=== PATIENT | female | born 1950 | race Two or more races ===

== ENCOUNTER 2016-11-05 11:39 | Inpatient (IN) | payer MEDICARE, BC ==
[2016-11-05] VITALS (26 sets, daily range): BP systolic 110–150; BP diastolic 71–96; PULSE 64–85; RESP 10–19; Ht 154.9 cm; Wt 56.0 kg
[~2016-11-05] VITALS: Ht 154.9 cm; Wt 56.0 kg
--- NOTE | 2016-11-05 08:35 | PREOPHP ---
DATE OF ADMISSION: 11/05/2016 HISTORY OF PRESENT ILLNESS: The patient is approximately 65 years of age. Originally came to the [facility] for evaluation of neck pain, with pain going to her shoulders and down her arms, with numbness and weakness in her arms. She also states that she was off balance when she was walking. The antonio ent was diagnosed with cervical 5 and cervical 6 severe spondylosis with cord compression and myelop athy. PAST MEDICAL HISTORY: Per chart. SURGICAL HISTORY: Per chart. SOCIAL HISTORY: Denies the use of drugs, alcohol or tobacco. ALLERGIES: None, according to the patient. FAMILY HISTORY: Unremarkable. REVIEW OF SYSTEM: Additional 10-point review of systems conducted. Pertinent positives per HPI, oth erwise negative. PHYSICAL EXAMINATION: GENERAL: Patient is awake, alert, and oriented, functioning properly. HEENT: Head is atraumatic, normocephalic. Eyes are clear. The trachea is intact. Pupils are equa l and reactive. No cyanosis. Mouth lesions, no bleeding. NECK: Supple. No thyromegaly, no JVD, no accessory muscle usage. PULMONARY: No dyspnea, no tachypnea. CARDIOVASCULAR: No JVD. No pedal edema. NEUROLOGIC EXAM: GCS of 15. Cranial nerves 1 through XII are intact. Upper extremity examination, overall strength is about 4/5 in both upper extremities. Sensation is intact. Lower extremity exa mination, she has equal strength in both lower extremities and sensation is intact. MRI data done 09/24/2016 showed severe spondylosis C5-C6, with evidence of cord compression and sign al changes within the spinal cord. Recommendation at this point is for patient to undergo immediate surgical intervention with cervical partial vertebrectomy C5-C6 with diskectomy, with interbody fus ion and anterior plating. The procedure was described to the patient in great detail. Complication s were explained, including permanent nerve damage, infection, bleeding and complications of anesthe miguel including heart attack, stroke, even . The patient has agreed. Preoperative was performed . The patient has been cleared for surgical intervention and will be admitted to the hospital there after for further care and management. The patient was seen and discussed with Dr. Beal. Dictated By: IZA [place] for LORENA LIMA/LALA Conf#: [id number] [facility]#: [id number]
[~2016-11-05 11:39] MED LIST: ALEN70TA30 PO; ATOR20TA17 PO; BISA5TAB6 PO; DIPH25CA6 PO; GABA400C14 PO; HYDR25TA6 PO; MEMA5TAB PO; SERT-165 PO; STOMACH MED PO; [UNRECOGNIZED DRUG - CODE] PO
[2016-11-05] MEDS ORDERED: PANT40TA4 PO (12:56)
[2016-11-05] MEDS ORDERED: PIOG15TA21 PO ×2 (12:58→13:18)
[2016-11-05] MEDS ORDERED: METF500T4 PO (13:18)
[2016-11-05] MEDS ORDERED: ASPI-664 PO (13:18)
[2016-11-05] MEDS ORDERED: MELO7.5O PO (13:18)
[2016-11-05] MEDS ORDERED: IBAN150T7 PO (13:18)
[2016-11-05] MEDS ORDERED: METF-405 PO (13:18)
[2016-11-05] MEDS ORDERED: ROPI0.25 PO (13:18)
[2016-11-05] MEDS ORDERED: METO10TA96 PO (13:28)
[2016-11-05] MEDS ORDERED: LOSA50TA6 PO (13:28)
[2016-11-05] MEDS ORDERED: ALBU18HF INHALATION (13:28)
[2016-11-05] MEDS ORDERED: GELATIN SIZE 100 SPONGE ONE (13:42)
[2016-11-05] MEDS ORDERED: LIDOCAINE 0.5%/EPI (MDV) 50 ML INJ ONE (13:42)
[2016-11-05] MEDS ORDERED: POLYMYXIN/BACITRACIN 1L IRRIG ONE (13:43)
[2016-11-05] MEDS ORDERED: THROMBIN 5000 UNIT VIAL ONE (13:43)
[2016-11-05] MEDS ORDERED: PROPOFOL 20 ML ONE (14:23)
[2016-11-05] MEDS ORDERED: SUCCINYLCHOLINE CHLORIDE 100 MG/5 ML SYG IV ONE (14:23)
[2016-11-05] MEDS ORDERED: MEPERIDINE 100 MG INJ ONE (14:24)
[2016-11-05] MEDS ORDERED: ROCURONIUM 50 MG INJ ONE ×2 (14:24→15:36)
[2016-11-05] MEDS ORDERED: NEOSTIGMINE 3 MG/3 ML SYRINGE ONE ×2 (14:24→16:39)
[2016-11-05] MEDS ORDERED: GLYCOPYRROLATE 0.4 MG INJ ONE ×2 (14:24→16:19)
[2016-11-05] MEDS ORDERED: LIDOCAINE 2% (SDV) 5 ML INJ ONE (14:24)
[2016-11-05] MEDS ORDERED: DEXTROSE 5%-LR 1,000 ML IV ONE (15:00)
[2016-11-05] MEDS ORDERED: ONDANSETRON 4 MG INJ IV PRN ×2 (15:00→17:30)
[2016-11-05] MEDS ORDERED: ONDANSETRON 4 MG INJ ONE (15:07)
[2016-11-05] MEDS ORDERED: CEFAZOLIN 1 GM INJ ONE (15:07)
[2016-11-05] MEDS ORDERED: METOCLOPRAMIDE 10 MG INJ ONE (15:07)
[2016-11-05] MEDS ORDERED: EPHEDrine SULFATE 50 MG/5 ML SYG ONE (16:15)
[2016-11-05] MEDS ORDERED: NALOXONE (0.4 MG/ML) INJ ONE (16:55)
[2016-11-05] MEDS ORDERED: DIPHENHYDRAMINE 50 MG INJ IV PRN (17:30)
[2016-11-05] MEDS ORDERED: hydrALAzine 20 MG INJ IV PRN (17:30)
[2016-11-05] MEDS ORDERED: LABETALOL HCL 20MG INJ IV PRN (17:30)
[2016-11-05] MEDS ORDERED: MIDAZOLAM 1 MG/ML 2 ML INJ IV PRN (17:30)
[2016-11-05] MEDS ORDERED: FENTAnyl 50 MCG/ML VIAL IV PRN ×2 (17:30)
[2016-11-05] MEDS ORDERED: MEPERIDINE 25 MG INJ IV PRN (17:30)
[2016-11-05] MEDS ORDERED: HYDROmorphONE (0.2 MG/ML) 10ML SYG IV PRN ×2 (17:30)
[2016-11-05] MEDS ORDERED: EPHEDrine SULFATE 50 MG/5 ML SYG IV PRN (17:30)
[2016-11-05] MEDS ORDERED: morphine (1 MG/ML) 10ML SYRINGE IV PRN ×2 (17:30)
[2016-11-05] MEDS ORDERED: METOCLOPRAMIDE 10 MG INJ IV PRN (17:30)
[2016-11-05] MEDS ORDERED: Discontinue Glyburide, Glipizide, and/or Glimepiride prior to starting Insulin XX ONE (18:30)
[2016-11-05] MEDS ORDERED: HYPOGLYCEMIA PROTOCOL when Glucose is <70 mg/dL or symptomatic <90 mg/dL. XX ONE (18:30)
[2016-11-05] MEDS ORDERED: GLUCAGON 1 MG INJ IM PRN (18:30)
[2016-11-05] MEDS ORDERED: GLUCOSE GEL 15 GRAM TUBE PO PRN ×2 (18:30)
[2016-11-05] MEDS ORDERED: DEXTROSE 50% 50 ML SYRINGE IV PRN ×2 (18:30)
[2016-11-05] MEDS ORDERED: GLUCOSE GEL 15 GRAM TUBE BUCCAL PRN (18:30)
[2016-11-05] MEDS: INSULIN ASPART [NOVOLOG] 3 ML PEN SC SCH (18:30)
[2016-11-05] MEDS: DEXAMETHASONE 4 MG/ML 1 ML INJ IV SCH (18:43)
[2016-11-05] MEDS: HYDROCHLOROTHIAZIDE 25 MG TAB PO SCH (21:00)
[2016-11-05] MEDS: ROPINIROLE 0.25 MG TAB PO SCH (21:00)
[2016-11-05] MEDS: MEMANTINE 5 MG TAB PO SCH (21:00)
[2016-11-05] MEDS: PANTOPRAZOLE (EC) 40 MG TAB PO SCH (21:00)
--- NOTE | 2016-11-05 21:42 | RADRPT ---
PROCEDURE: Fluoroscopy services. CLINICAL INDICATION: Cervical spine pain TECHNIQUE: Fluoroscopy services during cervical spinal fusion. COMPARISON: None FINDINGS: Fluoroscopy services during cervical spinal fusion. 7 intraoperative spot films were obtained at int ermediate stages during this procedure demonstrate localization, instrumentation and placement of an terior plate and screw fixation over the cervical spine. 7.8 seconds of fluoroscopy time were employed during this procedure. IMPRESSION: Fluoroscopy services during cervical spinal fusion. RPTAT: [facility] Physician Arsi Date Time Electronically viewed and signed by Physician Aris on 11/05/2016 21:41 RS/
[2016-11-05] MEDS: CEFAZOLIN 1 GM/50 ML (PMX) 50 ML IVPB SCH (21:53)
[2016-11-06] VITALS (13 sets, daily range): BP systolic 123–152; BP diastolic 67–91; PULSE 62–81; RESP 10–18
[2016-11-06] MEDS: INSULIN ASPART [NOVOLOG] 3 ML PEN SC SCH ×4 (01:35→18:00)
--- NOTE | 2016-11-06 05:13 | HP ---
DATE OF ADMISSION: 11/05/2016 HISTORY OF PRESENT ILLNESS: The patient is a 65-year-old female with a history of hypertension, anselmo betes, depression and possible memory impairment, was seen by Dr. Beal as an outpatient for chron ic neck pain radiating to her shoulders and upper extremities. The patient also was noted to have n umbness and weakness in the upper extremities and with some gait instability. The patient underwent MRI of the C-spine and was diagnosed with cervical 5 and 6 severe spondylosis and cord compression and myelopathy. The patient was brought into the hospital today and underwent cervical 5 to cervica l 6 partial vertebrectomy and diskectomy, interbody fusion anterior plating. Status post, this antonio ent was postoperatively placed on neck brace. The patient denies any chest pain or abdominal pain, no vomiting, no reported leg pain. No reported recent fever or chills. No reported recent fall. N o reported any acute joint swelling recently. The patient did not have any history of recent nausea , vomiting, or diarrhea, no reported cough or shortness of breath or fever or chills. The patient d id have postoperative pain. REVIEW OF SYSTEMS: As above and rest of review of systems were unremarkable. PAST SURGICAL HISTORY: The patient is appendectomy, x3, carpal tunnel syndrome and catara ct repair. FAMILY HISTORY: Unremarkable. ALLERGIES: NONE. SOCIAL HISTORY: No smoking, no alcohol. MEDICATIONS: List prior to admission revealed: 1. Benadryl. 2. Albuterol. 3. Lipitor. 4. Losartan. 5. Aspirin. 6. Diclofenac. 7. Gabapentin. 8. Meloxicam. 9. Namenda. 10. Ropinirole. 11. Zoloft. 12. Hydrochlorothiazide. 13. Bisacodyl. 14. Metoclopramide. 15. Protonix. 16. Metformin. 17. Actos. 18. Fosamax. PHYSICAL EXAMINATION: GENERAL: The patient is conscious, awake, alert, follows simple commands. VITAL SIGNS: Temperature 97.7, pulse 66, respirations 19, blood pressure 131/86, O2 saturation 100% on 2 liters nasal cannula. HEENT: Atraumatic, normocephalic. Conjunctivae and lids normal. Extraocular movements intact. No se and ears normal externally. Oropharynx examination was deferred due to recent neck surgery. NECK: Limited due to cervical brace. CHEST: Fairly clear. No use of accessory muscles. CARDIOVASCULAR: Regular rate and rhythm. S1, S2 normal. No murmur, gallop, or rub. ABDOMEN: Soft, nondistended, nontender. Bowel sounds present. EXTREMITIES: No leg edema. NEUROLOGIC: The patient is awake, alert, fairly oriented and moves all extremities. LABORATORY DATA: Glucose 96. Preop labs unremarkable. IMPRESSION: 1. Cervical 5 to cervical 6 severe spondylosis with the cervical myelopathy and cord compression, s tatus post cervical 5 to cervical 6 partial vertebrectomy with diskectomy and interbody fusion anter ior plating. 2. Hypertension. 3. Dyslipidemia. 4. Diabetes. 5. Depression and possible memory impairment. PLAN: The patient admitted on medical floor postoperatively and will be started on IV cefazolin as per protocol. Patient will be given IV fluids, Lipitor, sliding scale insulin. The patient also wi ll be continued on hydrochlorothiazide and losartan. The patient will be started on sliding scale i nsulin in addition to Actos. Continue Zoloft for depression and Neurontin for neuropathy, possible neuropathy pain. We will use SCD for DVT prophylaxis. Plan of care discussed with the nursing mery samuels in the recovery room. We will continue to follow and will do followup labs in the morning. [facility] recommendations will depend on the patient's hospital course. Dictated By: KARLENE BUI/LALA Conf#: [id number] DID#: [id number]
[2016-11-06 05:19] LABS: ADD SCAN DIFF NO
[2016-11-06] MEDS: DEXAMETHASONE 4 MG/ML 1 ML INJ IV SCH ×4 (05:28→13:45)
[2016-11-06] MEDS: CEFAZOLIN 1 GM/50 ML (PMX) 50 ML IVPB SCH ×3 (05:29→21:50)
[2016-11-06 05:35] LABS: ABNORMAL IP MESSAGE 1; BASOPHILS % 0.2 % (0.0-2.0); HEMATOCRIT 38.1 % (37.0-47.0); HEMOGLOBIN 12.2 g/dl (12.0-16.0); LYMPHOCYTES # 0.5 10^3/ul (0.8-2.9); LYMPHOCYTES % 8.5 % (15.0-51.0); MEAN CORPUSCULAR VOLUME 90.7 fl (82.0-101.0); MEAN PLATELET VOLUME 12.4 fl (7.4-10.4); MONOCYTE # 0.1 10^3/ul (0.3-0.9); MONOCYTES % 1.8 % (0.0-11.0); NEUTROPHIL # 5.4 10^3/ul (1.6-7.5); NEUTROPHILS % 89.2 % (39.0-77.0); PLATELET COUNT 153 10^3/UL (140-415); RED CELL DISTRIBUTION WIDTH 13.1 % (11.5-14.5)
[2016-11-06 05:41] LABS: ALBUMIN 3.5 g/dl (3.3-4.9)
[2016-11-06 05:43] LABS: ALBUMIN/GLOBULIN RATIO 1.29; BILIRUBIN,INDIRECT 0.3 mg/dl (0-1.1); BILIRUBIN,TOTAL 0.3 mg/dl (0.2-1.3); CREATININE 0.53 mg/dl (0.44-1.00); TOTAL PROTEIN 6.2 g/dl (6.1-8.1)
[2016-11-06 05:44] LABS: CALCIUM 9.5 mg/dl (8.4-10.2)
[2016-11-06] MEDS: morphine 2 MG INJ IV PRN (08:10)
[2016-11-06] MEDS: PIOGLITAZONE 15 MG TAB PO SCH (08:17)
[2016-11-06] MEDS: ATORVASTATIN 20 MG TAB PO SCH (08:18)
[2016-11-06] MEDS: LOSARTAN 50 MG TAB PO SCH (08:18)
[2016-11-06] MEDS: SERTRALINE 100 MG TAB PO SCH (08:18)
[2016-11-06] MEDS: HYDROCHLOROTHIAZIDE 25 MG TAB PO SCH ×2 (08:18→21:15)
[2016-11-06] MEDS: PANTOPRAZOLE (EC) 40 MG TAB PO SCH ×2 (08:19→21:15)
[2016-11-06] MEDS: GABAPENTIN 400 MG CAP PO SCH (08:19)
[2016-11-06] MEDS: metFORMIN 500 MG TAB PO SCH ×2 (08:21→17:40)
--- NOTE | 2016-11-06 10:19 | CONS ---
Date/Time of Note Date/Time of Note DATE: 11/06/16 TIME: 10:18 Assessment/Plan Assessment/Plan Additional Assessment/Plan seen/examined in icu awake/alert/follows/moves all/sensation intact c5-6 partial vertebrectomy with fusion mri cervical spine may leave icu Consultation Date/Type/Reason Admit Date/Time Nov 05, 2016 at 11:39 Initial Consult Date Exam/Review of Systems Vital Signs Vitals Vital Signs Date Time Temp Pulse Resp B/P Pulse Ox O2 Delivery O2 Flow Rate FiO2 11/06/16 09:00 98.0 66 16 125/71 98 Nasal Cannula 11/06/16 06:32 1.0 Intake and Output 11/05/16 11/05/16 11/06/16 15:00 23:00 07:00 Intake Total 1800 ml 350 ml 575 ml Output Total 1510 ml 420 ml Balance 1800 ml -1160 ml 155 ml Results Result Diagram: 11/06/16 0430 11/06/16 0430 Results 24 hrs Laboratory Tests Test 11/05/16 12:50 11/05/16 17:17 11/05/16 23:57 11/06/16 04:30 Bedside Glucose 99 96 150 White Blood Count 6.0 Red Blood Count 4.20 Hemoglobin 12.2 Hematocrit 38.1 Mean Corpuscular Volume 90.7 Mean Corpuscular Hemoglobin 29.0 Mean Corpuscular Hemoglobin Concent 32.0 Red Cell Distribution Width 13.1 Platelet Count 153 Mean Platelet Volume 12.4 H Neutrophils % 89.2 H Lymphocytes % 8.5 L Monocytes % 1.8 Eosinophils % 0.0 Basophils % 0.2 Nucleated Red Blood Cells % 0.0 Neutrophils # 5.4 Lymphocytes # 0.5 L Monocytes # 0.1 L Eosinophils # 0.0 Basophils # 0.0 Nucleated Red Blood Cells # 0.0 Sodium Level 140 Potassium Level 4.0 Chloride Level 102 Carbon Dioxide Level 30 Anion Gap 12 Blood Urea Nitrogen 14 Creatinine 0.53 Glucose Level 165 Calcium Level 9.5 Total Bilirubin 0.3 Direct Bilirubin 0.00 Indirect Bilirubin 0.3 Aspartate Amino Transf (AST/SGOT) 27 Alanine Aminotransferase (ALT/SGPT) 26 Alkaline Phosphatase 53 Total Protein 6.2 Albumin 3.5 Globulin 2.70 Albumin/Globulin Ratio 1.29 Test 11/06/16 05:35 11/06/16 08:13 Bedside Glucose 149 141 Medications Medications Current Medications Cefazolin Sodium (Ancef 1 Gm/50 ml (Pmx)) 50 ml @ 100 mls/hr Q8 IVPB Last administered on 11/06/16 05:29; Admin Dose 100 MLS/HR; Start 11/05/16 at 22:00 ; Stop 11/06/16 at 22:00 Acetaminophen/ Hydrocodone Bitart ([place] (10/325)) 1 tab Q4H PRN PO PAIN; Start 11/05/16 at 15:00 Morphine Sulfate (morphine) 2 mg Q4H PRN IV severe pain Last administered on 08:10; Admin Dose 2 MG; Start 11/05/16 at 15:00 Ondansetron HCl (Zofran Inj) 4 mg Q6H PRN IV NAUSEA AND/OR VOMITING; Start at 15:00 Clonidine (Catapres) 0.1 mg Q6H PRN PO sbp>160; Start 11/05/16 at 15:00 Dexamethasone (Decadron) 4 mg Q6 IV Last administered on 11/06/16 05:28; Admin Dose 4 MG; Start 11/05/16 at 18:00; Stop 11/06/16 at 18:00 Atorvastatin Calcium (Lipitor) 20 mg DAILY PO Last administered on 11/06/16 08 :18; Admin Dose 20 MG; Start 11/06/16 at 09:00 Gabapentin (Neurontin) 400 mg DAILY PO Last administered on 11/06/16 08:19; Admin Dose 400 MG; Start 11/06/16 at 09:00 Hydrochlorothiazide (Hydrochlorothiazide) 25 mg BID PO Last administered on 08:18; Admin Dose 25 MG; Start 11/05/16 at 21:00 Losartan Potassium (Cozaar) 50 mg DAILY PO Last administered on 11/06/16 08:18 ; Admin Dose 50 MG; Start 11/06/16 at 09:00 Memantine (Namenda) 5 mg HS PO ; Start 11/05/16 at 21:00 Pantoprazole (Protonix Tab) 40 mg BID PO Last administered on 11/06/16 08:19; Admin Dose 40 MG; Start 11/05/16 at 21:00 Pioglitazone HCl (Actos) 15 mg DAILY PO Last administered on 11/06/16 08:17; Admin Dose 15 MG; Start 11/06/16 at 09:00 Ropinirole HCl (Requip) 0.25 mg HS PO ; Start 11/05/16 at 21:00 Sertraline HCl (Zoloft) 100 mg DAILY PO Last administered on 11/06/16 08:18; Admin Dose 100 MG; Start 11/06/16 at 09:00 Insulin Aspart (Novolog Insulin Pen) NOVOLOG *MILD* ALGORI... Q6 SC Last administered on 11/06/16 05:50; Admin Dose 1 UNIT; Start 11/05/16 at 18:30 Miscellaneous Information 1 ea NOTE XX ; Start 11/05/16 at 18:30 Glucose (Glutose) 15 gm Q15M PRN PO DECREASED GLUCOSE; Start 11/05/16 at 18:30 Glucose (Glutose) 22.5 gm Q15M PRN PO DECREASED GLUCOSE; Start 11/05/16 at 18: 30 Dextrose (D50w Syringe) 25 ml Q15M PRN IV DECREASED GLUCOSE; Start 11/05/16 at 18:30 Dextrose (D50w Syringe) 50 ml Q15M PRN IV DECREASED GLUCOSE; Start 11/05/16 at 18:30 Glucagon (Glucagen) 1 mg Q15M PRN IM DECREASED GLUCOSE; Start 11/05/16 at 18:30 Glucose (Glutose) 15 gm Q15M PRN BUCCAL DECREASED GLUCOSE; Start 11/05/16 at 18 :30 IZA VALLE PA-C Nov 06, 2016 10:19
[2016-11-06] MEDS ORDERED: ALBUTEROL 0.083% (NEB) 2.5 MG/3 ML AMP HHN PRN (10:30)
--- NOTE | 2016-11-06 14:43 | PN ---
Date/Time of Note Date/Time of Note DATE: 11/06/16 TIME: 14:35 Assessment/Plan VTE Prophylaxis VTE Prophylaxis Intervention: other Lines/Catheters IV Catheter Type (from Nrsg): Peripheral IV Urinary Cath still in place: Yes Assessment/Plan Assessment/Plan 1. Cervical 5 to cervical 6 severe spondylosis with the cervical myelopathy and cord compression, status post cervical 5 to cervical 6 partial vertebrectomy with diskectomy and interbody fusion anterior plating. - per neurosurgery - IV cefazolin as per protocol. - MRI neck- fu results - on 1800 CLA , 2 GM Na diet 2. Hypertension. - continued on hydrochlorothiazide and losartan. 3. Dyslipidemia.- lipitor 4. Diabetes. - sliding scale insulin in addition to Actos. 5. Depression and possible memory impairment. - Continue Zoloft for depression 6. neuropathy - Neurontin for possible neuropathy pain Further recommendations will depend on the patient's hospital course.victoria Koo Subjective 24 Hr Interval Summary Free Text/Dictation nad, had MRI nech today, fu results. dw staff Exam/Review of Systems Vital Signs Vitals Vital Signs Date Time Temp Pulse Resp B/P Pulse Ox O2 Delivery O2 Flow Rate FiO2 11/06/16 11:15 2.0 11/06/16 11:15 69 20 99 Nasal Cannula 11/06/16 11:00 136/78 11/06/16 09:00 98.0 Intake and Output 11/05/16 11/05/16 11/06/16 15:00 23:00 07:00 Intake Total 1800 ml 350 ml 575 ml Output Total 1510 ml 420 ml Balance 1800 ml -1160 ml 155 ml Exam Constitutional: alert Psych: nl mood/affect Eyes: EOMI ENMT: nl external ears & nose Neck: other Respiratory: clear to auscultation Cardiovascular: nl pulses Gastrointestinal: non-tender, soft Extremities: normal pulses Results Result Diagram: 11/06/16 0430 11/06/16 0430 Results 24 hrs Laboratory Tests Test 11/05/16 17:17 11/05/16 23:57 11/06/16 04:30 11/06/16 05:35 Bedside Glucose 96 150 149 White Blood Count 6.0 Red Blood Count 4.20 Hemoglobin 12.2 Hematocrit 38.1 Mean Corpuscular Volume 90.7 Mean Corpuscular Hemoglobin 29.0 Mean Corpuscular Hemoglobin Concent 32.0 Red Cell Distribution Width 13.1 Platelet Count 153 Mean Platelet Volume 12.4 H Neutrophils % 89.2 H Lymphocytes % 8.5 L Monocytes % 1.8 Eosinophils % 0.0 Basophils % 0.2 Nucleated Red Blood Cells % 0.0 Neutrophils # 5.4 Lymphocytes # 0.5 L Monocytes # 0.1 L Eosinophils # 0.0 Basophils # 0.0 Nucleated Red Blood Cells # 0.0 Sodium Level 140 Potassium Level 4.0 Chloride Level 102 Carbon Dioxide Level 30 Anion Gap 12 Blood Urea Nitrogen 14 Creatinine 0.53 Glucose Level 165 Calcium Level 9.5 Total Bilirubin 0.3 Direct Bilirubin 0.00 Indirect Bilirubin 0.3 Aspartate Amino Transf (AST/SGOT) 27 Alanine Aminotransferase (ALT/SGPT) 26 Alkaline Phosphatase 53 Total Protein 6.2 Albumin 3.5 Globulin 2.70 Albumin/Globulin Ratio 1.29 Test 11/06/16 08:13 11/06/16 12:57 Bedside Glucose 141 110 Medications Medications Current Medications Cefazolin Sodium (Ancef 1 Gm/50 ml (Pmx)) 50 ml @ 100 mls/hr Q8 IVPB Last administered on 11/06/16 13:45; Admin Dose 100 MLS/HR; Start 11/05/16 at 22:00 ; Stop 11/06/16 at 22:00 Acetaminophen/ Hydrocodone Bitart ([place] (10/325)) 1 tab Q4H PRN PO PAIN; Start 11/05/16 at 15:00 Morphine Sulfate (morphine) 2 mg Q4H PRN IV severe pain Last administered on 08:10; Admin Dose 2 MG; Start 11/05/16 at 15:00 Ondansetron HCl (Zofran Inj) 4 mg Q6H PRN IV NAUSEA AND/OR VOMITING; Start at 15:00 Clonidine (Catapres) 0.1 mg Q6H PRN PO sbp>160; Start 11/05/16 at 15:00 Dexamethasone (Decadron) 4 mg Q6 IV Last administered on 11/06/16 13:45; Admin Dose 4 MG; Start 11/05/16 at 18:00; Stop 11/06/16 at 18:00 Atorvastatin Calcium (Lipitor) 20 mg DAILY PO Last administered on 11/06/16 08 :18; Admin Dose 20 MG; Start 11/06/16 at 09:00 Gabapentin (Neurontin) 400 mg DAILY PO Last administered on 11/06/16 08:19; Admin Dose 400 MG; Start 11/06/16 at 09:00 Hydrochlorothiazide (Hydrochlorothiazide) 25 mg BID PO Last administered on 08:18; Admin Dose 25 MG; Start 11/05/16 at 21:00 Losartan Potassium (Cozaar) 50 mg DAILY PO Last administered on 11/06/16 08:18 ; Admin Dose 50 MG; Start 11/06/16 at 09:00 Memantine (Namenda) 5 mg HS PO ; Start 11/05/16 at 21:00 Pantoprazole (Protonix Tab) 40 mg BID PO Last administered on 11/06/16 08:19; Admin Dose 40 MG; Start 11/05/16 at 21:00 Pioglitazone HCl (Actos) 15 mg DAILY PO Last administered on 11/06/16 08:17; Admin Dose 15 MG; Start 11/06/16 at 09:00 Ropinirole HCl (Requip) 0.25 mg HS PO ; Start 11/05/16 at 21:00 Sertraline HCl (Zoloft) 100 mg DAILY PO Last administered on 11/06/16 08:18; Admin Dose 100 MG; Start 11/06/16 at 09:00 Insulin Aspart (Novolog Insulin Pen) NOVOLOG *MILD* ALGORI... Q6 SC Last administered on 11/06/16 05:50; Admin Dose 1 UNIT; Start 11/05/16 at 18:30 Miscellaneous Information 1 ea NOTE XX ; Start 11/05/16 at 18:30 Glucose (Glutose) 15 gm Q15M PRN PO DECREASED GLUCOSE; Start 11/05/16 at 18:30 Glucose (Glutose) 22.5 gm Q15M PRN PO DECREASED GLUCOSE; Start 11/05/16 at 18: 30 Dextrose (D50w Syringe) 25 ml Q15M PRN IV DECREASED GLUCOSE; Start 11/05/16 at 18:30 Dextrose (D50w Syringe) 50 ml Q15M PRN IV DECREASED GLUCOSE; Start 11/05/16 at 18:30 Glucagon (Glucagen) 1 mg Q15M PRN IM DECREASED GLUCOSE; Start 11/05/16 at 18:30 Glucose (Glutose) 15 gm Q15M PRN BUCCAL DECREASED GLUCOSE; Start 11/05/16 at 18 :30 NESTOR BARKSDALE Nov 06, 2016 14:43
--- NOTE | 2016-11-06 15:23 | RADRPT ---
PROCEDURE: MRI Cervical Spine without contrast. CLINICAL INDICATION: 65-year-old female with postoperative changes from cervical decompression. TECHNIQUE: An MRI of the cervical spine was performed without contrast utilizing multiple sequence s in the sagittal and axial planes. Images reviewed on a high-resolution PACS system.. COMPARISON: Intraoperative examination 11/05/2016 FINDINGS: There has been interval anterior cervical discectomy and fusion at C5-6 with paired anterior vertebr al body screws and associated anterior fusion plate. There is a disc-spacer place. The hardware ap pears intact. The remaining vertebral body heights are maintained. The marrow signal is within nor mal limits. 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 There is diffuse desiccation of the remaining in tervertebral discs with moderate loss of disc-space height at C4-5 and C6-7. There are mild degener ative changes of the atlanto-odontoid articulation. The craniocervical and cervical medullary junct ions are unremarkable. The cervical cord is normal in caliber and signal intensity. The paravertebra l soft tissues are unremarkable. Occiput-C2: The anatomic relationships are normal without canal stenosis. C2-3: There is a 1-2 mm posterior disc/osteophyte complex. The thecal sac is patent, measuring 12 m m midline AP diameter. There is mild bilateral facet and uncovertebral joint spondylosis. There is mild bilateral neural foraminal narrowing. C3-4: There is a broad-based 2-3 mm posterior disc/osteophyte complex. The thecal sac measures 8.3 mm in midline AP diameter. There is effacement of the ventral CSF column. There is a thin rim of C SF dorsal to the cervical spinal cord. There is mild to moderate bilateral facet joint hypertrophy and mild to moderate bilateral uncovertebral joint spondylosis. There is severe bilateral neural fo raminal narrowing. C4-5: There is a Saddle-shaped 2-3 mm posterior disc/osteophyte complex. The thecal sac measures 6. 8 mm in midline AP diameter. There is mild bilateral facet joint hypertrophy and moderate bilateral uncovertebral joint spondylosis. There is severe bilateral neural foraminal narrowing. C5-6: No residual disc material is seen. The thecal sac measures 8.2 mm midline AP diameter. There is mild to moderate bilateral neural foraminal narrowing. C6-7: There is a broad-based 2-3 mm posterior disc/osteophyte complex. The thecal sac measures 6.9 mm in midline AP diameter. There is moderate bilateral facet joint hypertrophy and uncovertebral jerrell int spondylosis. There is severe bilateral neural foraminal narrowing. C7-T1: There is a Saddle-shaped to mm posterior disc/osteophyte complex. The thecal sac measures 7. 4 mm in midline AP diameter. There is mild bilateral facet joint hypertrophy and moderate left unco vertebral joint spondylosis. There is severe left and moderate right neural foraminal narrowing. IMPRESSION: 1. Postoperative changes from anterior cervical discectomy and fusion at C5-6 with intact surgical hardware. 2. The cervical cord is normal in signal and caliber. No evidence of myelopathic changes at this ti me. 3. 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 4. Multilevel facet and uncovertebral joint spondylosis with severe narrowing of the bilateral C3-4 , bilateral C4-5, bilateral C6-7 and left C7-T1 foramina. RPTAT: HGAS .Darin Martinez MD, Date Time Electronically viewed and signed by .Darin Martinez MD, on 11/06/2016 15:23 .S/
[2016-11-06] MEDS: ROPINIROLE 0.25 MG TAB PO SCH (21:14)
[2016-11-06] MEDS: MEMANTINE 5 MG TAB PO SCH (21:15)
[2016-11-06] MEDS: HYDROCODONE/APAP (10/325) TAB PO PRN (21:20)
[2016-11-07] MEDS: ACCUCHECK AT 2AM (Patients on SS coverage) XX SCH (02:00)
[2016-11-07] MEDS: morphine 2 MG INJ IV PRN ×3 (03:13→21:34)
[2016-11-07 05:57] LABS: ADD SCAN DIFF NO
[2016-11-07 06:11] LABS: CALCIUM 9.7 mg/dl (8.4-10.2); CREATININE 0.58 mg/dl (0.44-1.00); POTASSIUM 3.2 mmol/L (3.5-5.1)
[2016-11-07 06:18] LABS: BASOPHILS % 0.2 % (0.0-2.0); EOSINOPHILS # 0.1 10^3/ul (0.0-0.5); EOSINOPHILS % 1.1 % (0.0-7.0); HEMATOCRIT 34.6 % (37.0-47.0); HEMOGLOBIN 11.6 g/dl (12.0-16.0); LYMPHOCYTES # 1.2 10^3/ul (0.8-2.9); LYMPHOCYTES % 19.4 % (15.0-51.0); MEAN CORPUSCULAR HEMOGLOBIN 30.2 pg (29.0-33.0); MEAN CORPUSCULAR HGB CONC 33.5 g/dl (32.0-37.0); MEAN CORPUSCULAR VOLUME 90.1 fl (82.0-101.0); MEAN PLATELET VOLUME 12.8 fl (7.4-10.4); MONOCYTE # 0.6 10^3/ul (0.3-0.9); MONOCYTES % 9.7 % (0.0-11.0); NEUTROPHIL # 4.3 10^3/ul (1.6-7.5); NEUTROPHILS % 69.3 % (39.0-77.0); PLATELET COUNT 155 10^3/UL (140-415); RED BLOOD COUNT 3.84 10^6/ul (4.20-5.40); RED CELL DISTRIBUTION WIDTH 13.2 % (11.5-14.5); WHITE BLOOD COUNT 6.2 10^3/ul (4.8-10.8)
[2016-11-07] MEDS: Insulin NOVOLOG SS MILD Algorithm (SS with meals and bedtime) SC SCH ×4 (07:20→21:00)
[2016-11-07 08:34] VITALS: BP 142/72; RESP 18
[2016-11-07] MEDS: GABAPENTIN 400 MG CAP PO SCH (09:17)
[2016-11-07] MEDS: ATORVASTATIN 20 MG TAB PO SCH (09:17)
[2016-11-07] MEDS: PANTOPRAZOLE (EC) 40 MG TAB PO SCH ×2 (09:17→21:33)
[2016-11-07] MEDS: HYDROCODONE/APAP (10/325) TAB PO PRN (09:17)
[2016-11-07] MEDS: HYDROCHLOROTHIAZIDE 25 MG TAB PO SCH ×2 (09:18→21:34)
[2016-11-07] MEDS: metFORMIN 500 MG TAB PO SCH ×2 (09:18→18:37)
[2016-11-07] MEDS: PIOGLITAZONE 15 MG TAB PO SCH (09:18)
[2016-11-07] MEDS: LOSARTAN 50 MG TAB PO SCH (09:18)
[2016-11-07] MEDS: SERTRALINE 100 MG TAB PO SCH (09:18)
--- NOTE | 2016-11-07 11:01 | CONS ---
Date/Time of Note Date/Time of Note DATE: 11/07/16 TIME: 10:59 Assessment/Plan Assessment/Plan Additional Assessment/Plan seen/examined awake/alert/follows worked with pt around the floor pain is stable mri reviewed looks good replace k start ivf Consultation Date/Type/Reason Admit Date/Time Nov 05, 2016 at 11:39 Exam/Review of Systems Vital Signs Vitals Vital Signs Date Time Temp Pulse Resp B/P Pulse Ox O2 Delivery O2 Flow Rate FiO2 11/07/16 08:34 98.1 66 18 142/72 96 11/06/16 11:15 2.0 11/06/16 11:15 Nasal Cannula Intake and Output 11/06/16 11/06/16 11/07/16 15:00 23:00 07:00 Intake Total 50 ml 1100 ml 350 ml Output Total 650 ml 750 ml Balance 50 ml 450 ml -400 ml Results Result Diagram: 11/07/16 0430 11/07/16 0420 Results 24 hrs Laboratory Tests Test 11/06/16 12:57 11/06/16 17:02 11/06/16 21:13 11/07/16 04:20 Bedside Glucose 110 121 134 Sodium Level 136 Potassium Level 3.2 L Chloride Level 103 Carbon Dioxide Level 30 Anion Gap 6 L Blood Urea Nitrogen 14 Creatinine 0.58 Glucose Level 104 # Calcium Level 9.7 Test 11/07/16 04:30 11/07/16 08:11 11/07/16 09:30 White Blood Count 6.2 Red Blood Count 3.84 L Hemoglobin 11.6 L Hematocrit 34.6 L Mean Corpuscular Volume 90.1 Mean Corpuscular Hemoglobin 30.2 Mean Corpuscular Hemoglobin Concent 33.5 Red Cell Distribution Width 13.2 Platelet Count 155 Mean Platelet Volume 12.8 H Neutrophils % 69.3 Lymphocytes % 19.4 Monocytes % 9.7 Eosinophils % 1.1 Basophils % 0.2 Nucleated Red Blood Cells % 0.0 Neutrophils # 4.3 Lymphocytes # 1.2 Monocytes # 0.6 Eosinophils # 0.1 Basophils # 0.0 Nucleated Red Blood Cells # 0.0 Bedside Glucose 88 114 Medications Medications Current Medications Acetaminophen/ Hydrocodone Bitart ([place] (10/325)) 1 tab Q4H PRN PO PAIN Last administered on 11/07/16t 09:17; Admin Dose 1 TAB; Start 11/05/16 at 15:00 Ondansetron HCl (Zofran Inj) 4 mg Q6H PRN IV NAUSEA AND/OR VOMITING; Start at 15:00 Clonidine (Catapres) 0.1 mg Q6H PRN PO sbp>160; Start 11/05/16 at 15:00 Atorvastatin Calcium (Lipitor) 20 mg DAILY PO Last administered on 11/07/16 09 :17; Admin Dose 20 MG; Start 11/06/16 at 09:00 Gabapentin (Neurontin) 400 mg DAILY PO Last administered on 11/07/16 09:17; Admin Dose 400 MG; Start 11/06/16 at 09:00 Hydrochlorothiazide (Hydrochlorothiazide) 25 mg BID PO Last administered on 09:18; Admin Dose 25 MG; Start 11/05/16 at 21:00 Losartan Potassium (Cozaar) 50 mg DAILY PO Last administered on 11/07/16 09:18 ; Admin Dose 50 MG; Start 11/06/16 at 09:00 Memantine (Namenda) 5 mg HS PO Last administered on 11/06/16 21:15; Admin Dose 5 MG; Start 11/05/16 at 21:00 Pantoprazole (Protonix Tab) 40 mg BID PO Last administered on 11/07/16 09:17; Admin Dose 40 MG; Start 11/05/16 at 21:00 Pioglitazone HCl (Actos) 15 mg DAILY PO Last administered on 11/07/16 09:18; Admin Dose 15 MG; Start 11/06/16 at 09:00 Ropinirole HCl (Requip) 0.25 mg HS PO Last administered on 11/06/16 21:14; Admin Dose 0.25 MG; Start 11/05/16 at 21:00 Sertraline HCl (Zoloft) 100 mg DAILY PO Last administered on 11/07/16 09:18; Admin Dose 100 MG; Start 11/06/16 at 09:00 Miscellaneous Information 1 ea NOTE XX ; Start 11/05/16 at 18:30 Glucose (Glutose) 15 gm Q15M PRN PO DECREASED GLUCOSE; Start 11/05/16 at 18:30 Glucose (Glutose) 22.5 gm Q15M PRN PO DECREASED GLUCOSE; Start 11/05/16 at 18: 30 Dextrose (D50w Syringe) 25 ml Q15M PRN IV DECREASED GLUCOSE; Start 11/05/16 at 18:30 Dextrose (D50w Syringe) 50 ml Q15M PRN IV DECREASED GLUCOSE; Start 11/05/16 at 18:30 Glucagon (Glucagen) 1 mg Q15M PRN IM DECREASED GLUCOSE; Start 11/05/16 at 18:30 Glucose (Glutose) 15 gm Q15M PRN BUCCAL DECREASED GLUCOSE; Start 11/05/16 at 18 :30 Diagnostic Test (Pha) (Accu-Chek) 1 ea 02 XX ; Start 11/07/16 at 02:00 Morphine Sulfate 1 mg 1 mg Q4H PRN IV severe pain; Start 11/07/16 at 11:00 Potassium Chloride 30 meq/ Sodium Chloride 165 ml @ 55 mls/hr ONCE ONCE IVPB ; Start 11/07/16 at 12:00; Stop 11/07/16 at 14:59 Dextrose/Sodium Chloride (D5-NS) 1,000 ml @ 100 mls/hr Q10H IV ; Start at 11:00; Status IZA SHIPLEY PA-C Nov 07, 2016 11:01
[2016-11-07] MEDS ORDERED: POTASSIUM CHLORIDE 30 MEQ in SOD CHLORIDE 0.9% 150 ML IVPB ONE (12:00)
[2016-11-07] MEDS: DEXTROSE 5%-0.9% NACL 1,000 ML IV SCH (12:39)
[2016-11-07 20:57] VITALS: BP 127/67; RESP 18
[2016-11-07] MEDS: ROPINIROLE 0.25 MG TAB PO SCH (21:33)
[2016-11-07] MEDS: MEMANTINE 5 MG TAB PO SCH (21:34)
[2016-11-08] MEDS: ACCUCHECK AT 2AM (Patients on SS coverage) XX SCH (02:00)
[2016-11-08] MEDS: DEXTROSE 5%-0.9% NACL 1,000 ML IV SCH ×3 (03:00→23:00)
[2016-11-08] MEDS: Insulin NOVOLOG SS MILD Algorithm (SS with meals and bedtime) SC SCH ×4 (07:20→20:59)
[2016-11-08 09:08] VITALS: BP 165/90; RESP 20
[2016-11-08] MEDS: GABAPENTIN 400 MG CAP PO SCH (09:22)
[2016-11-08] MEDS: metFORMIN 500 MG TAB PO SCH ×2 (09:22→17:41)
[2016-11-08] MEDS: PIOGLITAZONE 15 MG TAB PO SCH (09:22)
[2016-11-08] MEDS: HYDROCODONE/APAP (10/325) TAB PO PRN ×2 (09:22→17:41)
[2016-11-08] MEDS: ATORVASTATIN 20 MG TAB PO SCH (09:23)
[2016-11-08] MEDS: PANTOPRAZOLE (EC) 40 MG TAB PO SCH ×2 (09:23→20:56)
[2016-11-08] MEDS: LOSARTAN 50 MG TAB PO SCH (09:23)
[2016-11-08] MEDS: SERTRALINE 100 MG TAB PO SCH (09:23)
[2016-11-08] MEDS: HYDROCHLOROTHIAZIDE 25 MG TAB PO SCH ×2 (09:23→20:56)
--- NOTE | 2016-11-08 13:12 | CONS ---
Date/Time of Note Date/Time of Note DATE: 11/08/16 TIME: 13:10 Assessment/Plan Assessment/Plan Additional Assessment/Plan seen/examined awake/alert/follows/moves all/sensation intact cervical decompression with fusion pt looking better today may go home sixto fu in office 1 week. Consultation Date/Type/Reason Admit Date/Time Nov 05, 2016 at 11:39 Exam/Review of Systems Vital Signs Vitals Vital Signs Date Time Temp Pulse Resp B/P Pulse Ox O2 Delivery O2 Flow Rate FiO2 11/08/16 09:08 97.0 77 20 165/90 97 11/08/16 08:51 Nasal Cannula 2.0 11/07/16 23:30 21 Intake and Output 11/07/16 11/07/16 11/08/16 15:00 23:00 07:00 Intake Total 1330 ml 920 ml Output Total 1750 ml 550 ml Balance -420 ml 370 ml Results Result Diagram: 11/07/16 0430 11/07/16 0420 Results 24 hrs Laboratory Tests Test 11/07/16 17:24 11/07/16 21:58 11/08/16 08:06 11/08/16 12:34 Bedside Glucose 89 108 112 103 Medications Medications Current Medications Acetaminophen/ Hydrocodone Bitart ([place] (10/325)) 1 tab Q4H PRN PO PAIN Last administered on 11/08/16 09:22; Admin Dose 1 TAB; Start 11/05/16 at 15:00 Ondansetron HCl (Zofran Inj) 4 mg Q6H PRN IV NAUSEA AND/OR VOMITING; Start at 15:00 Clonidine (Catapres) 0.1 mg Q6H PRN PO sbp>160; Start 11/05/16 at 15:00 Atorvastatin Calcium (Lipitor) 20 mg DAILY PO Last administered on 11/08/16 09 :23; Admin Dose 20 MG; Start 11/06/16 at 09:00 Gabapentin (Neurontin) 400 mg DAILY PO Last administered on 11/08/16 09:22; Admin Dose 400 MG; Start 11/06/16 at 09:00 Hydrochlorothiazide (Hydrochlorothiazide) 25 mg BID PO Last administered on 09:23; Admin Dose 25 MG; Start 11/05/16 at 21:00 Losartan Potassium (Cozaar) 50 mg DAILY PO Last administered on 11/08/16 09:23 ; Admin Dose 50 MG; Start 11/06/16 at 09:00 Memantine (Namenda) 5 mg HS PO Last administered on 11/07/16 21:34; Admin Dose 5 MG; Start 11/05/16 at 21:00 Pantoprazole (Protonix Tab) 40 mg BID PO Last administered on 11/08/16 09:23; Admin Dose 40 MG; Start 11/05/16 at 21:00 Pioglitazone HCl (Actos) 15 mg DAILY PO Last administered on 11/08/16 09:22; Admin Dose 15 MG; Start 11/06/16 at 09:00 Ropinirole HCl (Requip) 0.25 mg HS PO Last administered on 11/07/16 21:33; Admin Dose 0.25 MG; Start 11/05/16 at 21:00 Sertraline HCl (Zoloft) 100 mg DAILY PO Last administered on 11/08/16 09:23; Admin Dose 100 MG; Start 11/06/16 at 09:00 Miscellaneous Information 1 ea NOTE XX ; Start 11/05/16 at 18:30 Glucose (Glutose) 15 gm Q15M PRN PO DECREASED GLUCOSE; Start 11/05/16 at 18:30 Glucose (Glutose) 22.5 gm Q15M PRN PO DECREASED GLUCOSE; Start 11/05/16 at 18: 30 Dextrose (D50w Syringe) 25 ml Q15M PRN IV DECREASED GLUCOSE; Start 11/05/16 at 18:30 Dextrose (D50w Syringe) 50 ml Q15M PRN IV DECREASED GLUCOSE; Start 11/05/16 at 18:30 Glucagon (Glucagen) 1 mg Q15M PRN IM DECREASED GLUCOSE; Start 11/05/16 at 18:30 Glucose (Glutose) 15 gm Q15M PRN BUCCAL DECREASED GLUCOSE; Start 11/05/16 at 18 :30 Diagnostic Test (Pha) (Accu-Chek) 1 ea 02 XX ; Start 11/07/16 at 02:00 Morphine Sulfate 1 mg 1 mg Q4H PRN IV severe pain Last administered on 21:34; Admin Dose 1 MG; Start 11/07/16 at 11:00 Dextrose/Sodium Chloride (D5-NS) 1,000 ml @ 100 mls/hr Q10H IV Last administered on 11/08/16t 04:55; Admin Dose 100 MLS/HR; Start 11/07/16 at 11:00 IZA VALLE PA-C Nov 08, 2016 13:12
--- NOTE | 2016-11-08 19:17 | PN ---
Date/Time of Note Date/Time of Note DATE: 11/08/16 TIME: 19:14 Assessment/Plan VTE Prophylaxis VTE Prophylaxis Intervention: SCD's Lines/Catheters IV Catheter Type (from Nrsg): Peripheral IV Urinary Cath still in place: No Assessment/Plan Assessment/Plan 1. Cervical 5 to cervical 6 severe spondylosis with the cervical myelopathy and cord compression, status post cervical 5 to cervical 6 partial vertebrectomy with diskectomy and interbody fusion anterior plating. Continue morphine as needed for pelvic pain. Continue physical therapy. 2. Hypertension. Continue Cozaar. 3. Dyslipidemia. Continue statin. 4. Diabetes. Continue Actos and NovoLog per sliding scale. 5. Depression and possible memory impairment. Further recommendations based on clinical course. Plan of care discussed with Dr. Koo. Subjective 24 Hr Interval Summary Free Text/Dictation Patient's complains of dizziness, was able to work with PT, complains of surgical incision pain. Exam/Review of Systems Vital Signs Vitals Vital Signs Date Time Temp Pulse Resp B/P Pulse Ox O2 Delivery O2 Flow Rate FiO2 11/08/16 09:08 97.0 77 20 165/90 97 11/08/16 08:51 Nasal Cannula 2.0 11/07/16 23:30 21 Intake and Output 11/07/16 11/07/16 11/08/16 15:00 23:00 07:00 Intake Total 1330 ml 920 ml Output Total 1750 ml 550 ml Balance -420 ml 370 ml Exam Constitutional: alert, oriented Psych: no complaints Head: atraumatic, normocephalic Eyes: nl conjunctiva ENMT: nl external ears & nose Neck: other (Status post surgery, cervical collar) Respiratory: clear to auscultation, normal air movement Cardiovascular: nl pulses, regular rate and rhythm Gastrointestinal: non-tender, soft Genitourinary - Female: nl adnexae Musculoskeletal: nl extremities to inspection Extremities: normal pulses 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 Results Result Diagram: 11/07/16 0430 11/07/16 0420 Results 24 hrs Laboratory Tests Test 11/07/16 21:58 11/08/16 08:06 11/08/16 12:34 11/08/16 17:29 Bedside Glucose 108 112 103 103 Medications Medications Current Medications Acetaminophen/ Hydrocodone Bitart ([place] (10/325)) 1 tab Q4H PRN PO PAIN Last administered on 11/08/16 17:41; Admin Dose 1 TAB; Start 11/05/16 at 15:00 Ondansetron HCl (Zofran Inj) 4 mg Q6H PRN IV NAUSEA AND/OR VOMITING; Start at 15:00 Clonidine (Catapres) 0.1 mg Q6H PRN PO sbp>160; Start 11/05/16 at 15:00 Atorvastatin Calcium (Lipitor) 20 mg DAILY PO Last administered on 11/08/16 09 :23; Admin Dose 20 MG; Start 11/06/16 at 09:00 Gabapentin (Neurontin) 400 mg DAILY PO Last administered on 11/08/16 09:22; Admin Dose 400 MG; Start 11/06/16 at 09:00 Hydrochlorothiazide (Hydrochlorothiazide) 25 mg BID PO Last administered on 09:23; Admin Dose 25 MG; Start 11/05/16 at 21:00 Losartan Potassium (Cozaar) 50 mg DAILY PO Last administered on 11/08/16 09:23 ; Admin Dose 50 MG; Start 11/06/16 at 09:00 Memantine (Namenda) 5 mg HS PO Last administered on 11/07/16 21:34; Admin Dose 5 MG; Start 11/05/16 at 21:00 Pantoprazole (Protonix Tab) 40 mg BID PO Last administered on 11/08/16 09:23; Admin Dose 40 MG; Start 11/05/16 at 21:00 Pioglitazone HCl (Actos) 15 mg DAILY PO Last administered on 11/08/16 09:22; Admin Dose 15 MG; Start 11/06/16 at 09:00 Ropinirole HCl (Requip) 0.25 mg HS PO Last administered on 11/07/16 21:33; Admin Dose 0.25 MG; Start 11/05/16 at 21:00 Sertraline HCl (Zoloft) 100 mg DAILY PO Last administered on 11/08/16 09:23; Admin Dose 100 MG; Start 11/06/16 at 09:00 Miscellaneous Information 1 ea NOTE XX ; Start 11/05/16 at 18:30 Glucose (Glutose) 15 gm Q15M PRN PO DECREASED GLUCOSE; Start 11/05/16 at 18:30 Glucose (Glutose) 22.5 gm Q15M PRN PO DECREASED GLUCOSE; Start 11/05/16 at 18: 30 Dextrose (D50w Syringe) 25 ml Q15M PRN IV DECREASED GLUCOSE; Start 11/05/16 at 18:30 Dextrose (D50w Syringe) 50 ml Q15M PRN IV DECREASED GLUCOSE; Start 11/05/16 at 18:30 Glucagon (Glucagen) 1 mg Q15M PRN IM DECREASED GLUCOSE; Start 11/05/16 at 18:30 Glucose (Glutose) 15 gm Q15M PRN BUCCAL DECREASED GLUCOSE; Start 11/05/16 at 18 :30 Diagnostic Test (Pha) (Accu-Chek) 1 ea 02 XX ; Start 11/07/16 at 02:00 Morphine Sulfate 1 mg 1 mg Q4H PRN IV severe pain Last administered on 21:34; Admin Dose 1 MG; Start 11/07/16 at 11:00 Dextrose/Sodium Chloride (D5-NS) 1,000 ml @ 100 mls/hr Q10H IV Last administered on 11/08/16 04:55; Admin Dose 100 MLS/HR; Start 11/07/16 at 11:00 ERI CHAIDEZ Nov 08, 2016 19:17
[2016-11-08 20:19] VITALS: BP 147/81; RESP 18
[2016-11-08] MEDS: MEMANTINE 5 MG TAB PO SCH (20:56)
[2016-11-08] MEDS: ROPINIROLE 0.25 MG TAB PO SCH (20:56)
[2016-11-09] MEDS: ACCUCHECK AT 2AM (Patients on SS coverage) XX SCH (02:00)
[2016-11-09 04:59] LABS: ADD SCAN DIFF NO; BASOPHILS % 0.4 % (0.0-2.0); EOSINOPHILS # 0.4 10^3/ul (0.0-0.5); EOSINOPHILS % 7.2 % (0.0-7.0); HEMATOCRIT 37.4 % (37.0-47.0); HEMOGLOBIN 11.8 g/dl (12.0-16.0); LYMPHOCYTES # 1.1 10^3/ul (0.8-2.9); LYMPHOCYTES % 23.4 % (15.0-51.0); MEAN CORPUSCULAR HEMOGLOBIN 28.7 pg (29.0-33.0); MEAN CORPUSCULAR HGB CONC 31.6 g/dl (32.0-37.0); MEAN PLATELET VOLUME 12.2 fl (7.4-10.4); MONOCYTE # 0.6 10^3/ul (0.3-0.9); MONOCYTES % 12.1 % (0.0-11.0); NEUTROPHIL # 2.8 10^3/ul (1.6-7.5); NEUTROPHILS % 56.7 % (39.0-77.0); PLATELET COUNT 150 10^3/UL (140-415); RED BLOOD COUNT 4.11 10^6/ul (4.20-5.40); RED CELL DISTRIBUTION WIDTH 13.1 % (11.5-14.5); WHITE BLOOD COUNT 4.9 10^3/ul (4.8-10.8)
[2016-11-09 05:21] LABS: POTASSIUM 3.6 mmol/L (3.5-5.1)
[2016-11-09 05:24] LABS: CREATININE 0.62 mg/dl (0.44-1.00)
[2016-11-09] MEDS: Insulin NOVOLOG SS MILD Algorithm (SS with meals and bedtime) SC SCH ×4 (07:20→21:00)
[2016-11-09 07:40] VITALS: BP 150/83; RESP 19
[2016-11-09] MEDS: morphine 2 MG INJ IV PRN ×2 (08:41→23:37)
[2016-11-09] MEDS: ATORVASTATIN 20 MG TAB PO SCH (08:43)
[2016-11-09] MEDS: PANTOPRAZOLE (EC) 40 MG TAB PO SCH ×2 (08:43→20:59)
[2016-11-09] MEDS: metFORMIN 500 MG TAB PO SCH ×2 (08:43→16:54)
[2016-11-09] MEDS: GABAPENTIN 400 MG CAP PO SCH (08:43)
[2016-11-09] MEDS: SERTRALINE 100 MG TAB PO SCH (08:44)
[2016-11-09] MEDS: LOSARTAN 50 MG TAB PO SCH (08:44)
[2016-11-09] MEDS: HYDROCHLOROTHIAZIDE 25 MG TAB PO SCH ×2 (08:44→20:59)
[2016-11-09] MEDS: PIOGLITAZONE 15 MG TAB PO SCH (09:00)
[2016-11-09] MEDS: DEXTROSE 5%-0.9% NACL 1,000 ML IV SCH (09:00)
[2016-11-09] MEDS: HYDROCODONE/APAP (10/325) TAB PO PRN (14:17)
--- NOTE | 2016-11-09 18:23 | PN ---
Date/Time of Note Date/Time of Note DATE: 11/09/16 TIME: 18:21 Assessment/Plan VTE Prophylaxis VTE Prophylaxis Intervention: SCD's Lines/Catheters IV Catheter Type (from Nrs): [place] Urinary Cath still in place: No Assessment/Plan Chief Complaint/Hosp Course Assessment/Plan 1. Cervical 5 to cervical 6 severe spondylosis with the cervical myelopathy and cord compression, status post cervical 5 to cervical 6 partial vertebrectomy with diskectomy and interbody fusion anterior plating. Continue morphine as needed for pelvic pain. Continue physical therapy. 2. Hypertension. Continue Cozaar. 3. Dyslipidemia. Continue statin. 4. Diabetes. Continue Actos and NovoLog per sliding scale. 5. Depression and possible memory impairment. Further recommendations based on clinical course. Plan of care discussed with Dr. Koo. Problems: Subjective 24 Hr Interval Summary Free Text/Dictation Patient's pain is better controlled, patient was able to work with physical therapy however per patient's patient has a 27 steps to apartment. Continue PT Exam/Review of Systems Vital Signs Vitals Vital Signs Date Time Temp Pulse Resp B/P Pulse Ox O2 Delivery O2 Flow Rate FiO2 11/09/16 07:40 98.6 78 19 150/83 99 11/08/16 08:51 Nasal Cannula 2.0 11/07/16 23:30 21 Intake and Output 11/08/16 11/08/16 11/09/16 15:00 23:00 07:00 Intake Total 300 ml 560 ml Output Total 2 ml Balance 300 ml 558 ml Exam Constitutional: alert, oriented Psych: no complaints Head: atraumatic, normocephalic Eyes: nl conjunctiva ENMT: nl external ears & nose Neck: other (Status post surgery, cervical collar) Respiratory: clear to auscultation, normal air movement Cardiovascular: nl pulses, regular rate and rhythm Gastrointestinal: non-tender, soft Genitourinary - Female: nl adnexae Musculoskeletal: nl extremities to inspection Extremities: normal pulses 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 Results Result Diagram: 11/09/1641911/09/16419 Results 24 hrs Laboratory Tests Test 11/08/16 20:58 11/09/16 04:20 11/09/16 08:16 11/09/16 11:43 Bedside Glucose 115 104 81 White Blood Count 4.9 # Red Blood Count 4.11 L Hemoglobin 11.8 L Hematocrit 37.4 Mean Corpuscular Volume 91.0 Mean Corpuscular Hemoglobin 28.7 L Mean Corpuscular Hemoglobin Concent 31.6 L Red Cell Distribution Width 13.1 Platelet Count 150 Mean Platelet Volume 12.2 H Neutrophils % 56.7 Lymphocytes % 23.4 Monocytes % 12.1 H Eosinophils % 7.2 H Basophils % 0.4 Nucleated Red Blood Cells % 0.0 Neutrophils # 2.8 Lymphocytes # 1.1 Monocytes # 0.6 Eosinophils # 0.4 Basophils # 0.0 Nucleated Red Blood Cells # 0.0 Sodium Level 139 Potassium Level 3.6 Chloride Level 98 Carbon Dioxide Level 33 H Anion Gap 12 Blood Urea Nitrogen 11 Creatinine 0.62 Glucose Level 105 Calcium Level 10.0 Test 11/09/16 16:45 Bedside Glucose 195 Medications Medications Current Medications Acetaminophen/ Hydrocodone Bitart ([place] (10325)) 1 tab Q4H PRN PO PAIN Last administered on 11/09/16 14:17; Admin Dose 1 TAB; Start 11/05/16 at 15:00 Ondansetron HCl (Zofran Inj) 4 mg Q6H PRN IV NAUSEA AND/OR VOMITING; Start at 15:00 Clonidine (Catapres) 0.1 mg Q6H PRN PO sbp>160; Start 11/05/16 at 15:00 Atorvastatin Calcium (Lipitor) 20 mg DAILY PO Last administered on 11/09/16 08 :43; Admin Dose 20 MG; Start 11/06/16 at 09:00 Gabapentin (Neurontin) 400 mg DAILY PO Last administered on 11/09/16 08:43; Admin Dose 400 MG; Start 11/06/16 at 09:00 Hydrochlorothiazide (Hydrochlorothiazide) 25 mg BID PO Last administered on 08:44; Admin Dose 25 MG; Start 11/05/16 at 21:00 Losartan Potassium (Cozaar) 50 mg DAILY PO Last administered on 11/09/16 08:44 ; Admin Dose 50 MG; Start 11/06/16 at 09:00 Memantine (Namenda) 5 mg HS PO Last administered on 11/08/16 20:56; Admin Dose 5 MG; Start 11/05/16 at 21:00 Pantoprazole (Protonix Tab) 40 mg BID PO Last administered on 11/09/16 08:43; Admin Dose 40 MG; Start 11/05/16 at 21:00 Pioglitazone HCl (Actos) 15 mg DAILY PO Last administered on 11/08/16 09:22; Admin Dose 15 MG; Start 11/06/16 at 09:00 Ropinirole HCl (Requip) 0.25 mg HS PO Last administered on 11/08/16 20:56; Admin Dose 0.25 MG; Start 11/05/16 at 21:00 Sertraline HCl (Zoloft) 100 mg DAILY PO Last administered on 11/09/16 08:44; Admin Dose 100 MG; Start 11/06/16 at 09:00 Miscellaneous Information 1 ea NOTE XX ; Start 11/05/16 at 18:30 Glucose (Glutose) 15 gm Q15M PRN PO DECREASED GLUCOSE; Start 11/05/16 at 18:30 Glucose (Glutose) 22.5 gm Q15M PRN PO DECREASED GLUCOSE; Start 11/05/16 at 18: 30 Dextrose (D50w Syringe) 25 ml Q15M PRN IV DECREASED GLUCOSE; Start 11/05/16 at 18:30 Dextrose (D50w Syringe) 50 ml Q15M PRN IV DECREASED GLUCOSE; Start 11/05/16 at 18:30 Glucagon (Glucagen) 1 mg Q15M PRN IM DECREASED GLUCOSE; Start 11/05/16 at 18:30 Glucose (Glutose) 15 gm Q15M PRN BUCCAL DECREASED GLUCOSE; Start 11/05/16 at 18 :30 Diagnostic Test (Pha) (Accu-Chek) 1 ea 02 XX ; Start 11/07/16 at 02:00 Morphine Sulfate (morphine) 1 mg Q4H PRN IV severe pain Last administered on 08:41; Admin Dose 1 MG; Start 11/07/16 at 11:00 ERI CHAIDEZ Nov 09, 2016 18:23
[2016-11-09 19:55] VITALS: BP 114/68; RESP 20
[2016-11-09] MEDS: MEMANTINE 5 MG TAB PO SCH (20:59)
[2016-11-09] MEDS: ROPINIROLE 0.25 MG TAB PO SCH (20:59)
[2016-11-10] MEDS: ACCUCHECK AT 2AM (Patients on SS coverage) XX SCH (01:16)
--- NOTE | 2016-11-10 06:35 | OPR ---
DATE OF OPERATION: 11/05/2016 PREOPERATIVE DIAGNOSIS: C5-C6 cervical stenosis, cervical quadriparesis with cord compression, cerv ical radiculopathy and myelopathy. POSTOPERATIVE DIAGNOSIS: C5-C6 cervical stenosis, cervical quadriparesis with cervical cord chana apolinar, cervical radiculopathy and myelopathy. PROCEDURES: 1. C5 partial vertebrectomy, anterior approach, CPT 62944. 2. C6 partial vertebrectomy, anterior approach, CPT 74751. 3. C5-C6 anterior cervical interbody arthrodesis, CPT 60025. 4. C5-C6 anterior cervical instrumentation, CPT 37067. 5. Anterior cervical interbody fusion, placement with ____ bone and demineralized bone matrix, CPT 72972. SURGEON: Lorena Beal MD BEHAVIORAL HEALTH WORKER: TACO Guerrero COMPLICATIONS OF THE OPERATION: None. ANESTHESIA: General endotracheal. ESTIMATED BLOOD LOSS: Less than 200. NEEDLE COUNTS AND SPONGE COUNTS: Correct. SPECIMEN: Multiple fragments of the disk sent to pathology. INDICATIONS FOR PROCEDURE: Please see my consultation. The patient is 65 years old, complaining of neck pain, shoulder pain, arm pain with radiation of pain to bilateral upper extremities, bilateral lower extremities, difficulty walking with normal daily activities. She has a cervical stenosis at ____ level with cord compression, signal changes of the cord. Risks and benefits of the operation including anesthesia, infection, bleeding, permanent neurologic injury and were explained. Taco silver agreed to proceed with the operation and signed the consent. DESCRIPTION OF PROCEDURE: The patient was placed in supine position. Adequate general endotracheal anesthesia was obtained. The neck was placed in semi-extended position. The patient received anti biotics and Decadron. Fluoroscopy was utilized to hanna the C5-C6 level. I was standing on the left side of the midline ____ an elliptical incision was made in the left anterior neck, was carried pas t the platysma to the anterior cervical fascia, which was divided and longus colli muscles were retr acted laterally and medially with W[place]ield retractors. Following this, the area was irrigated with bacitracin/saline solution and the osteophyte of C5-6 wa s identified, and x-ray count was complete with needle marker in the C5-6 level. Following this, anterior osteophytes of C5-6 were removed and Winfield retractors which were placed la terally, medially, superiorly and inferiorly were secured and I started utilizing the high-speed Mid as Polo drill to remove the inferior 3 mm of C5 vertebral body and the superior 3 mm of the C6 verteb ral body, all the way to the posterior longitudinal ligament, which was opened with curet and large fragments of disk that were ____ posterior longitudinal ligament were removed and the dura was ident ified and was decompressed with decompression of the joint of Luschka bilaterally. Following this, I started the interbody fusion with a 9 mm advanced ACF bone that was packed with de mineralized bone matrix and was tapped in place at the level of C5-C6 and following that, a 14 mm ca ge was affixed to the cervical spine utilizing 14 mm screws. Everything with torque tightened to sp ecification. This was provided by [employer]. It was a Vectra T-plate. The area was irrigated with bacitracin/saline solution. The closure of wound at this time was start ed with stopping all the bleeders with bipolar cautery, and the closure of the wound with #2-0 Vicry l for the platysma and 4-0 nylon in a subcuticular fashion for the skin. The patient tolerated the procedure well and was taken to postanesthesia recovery in stable condition. Dictated By: LORENA CRENSHAW/LALA Conf#: [id number] DID#: [id number] CC: KARLENE GIRSSOM MD;*EndCC*
[2016-11-10] MEDS: Insulin NOVOLOG SS MILD Algorithm (SS with meals and bedtime) SC SCH ×4 (07:20→21:00)
[2016-11-10 07:46] VITALS: BP 143/79; RESP 18
[2016-11-10] MEDS: GABAPENTIN 400 MG CAP PO SCH (09:11)
[2016-11-10] MEDS: HYDROCODONE/APAP (10/325) TAB PO PRN ×2 (09:15→17:37)
[2016-11-10] MEDS: LOSARTAN 50 MG TAB PO SCH (09:15)
[2016-11-10] MEDS: SERTRALINE 100 MG TAB PO SCH (09:16)
[2016-11-10] MEDS: metFORMIN 500 MG TAB PO SCH ×2 (09:16→17:36)
[2016-11-10] MEDS: HYDROCHLOROTHIAZIDE 25 MG TAB PO SCH ×2 (09:16→20:59)
[2016-11-10] MEDS: PIOGLITAZONE 15 MG TAB PO SCH (09:16)
[2016-11-10] MEDS: PANTOPRAZOLE (EC) 40 MG TAB PO SCH ×2 (09:16→20:56)
[2016-11-10] MEDS: ATORVASTATIN 20 MG TAB PO SCH (09:16)
--- NOTE | 2016-11-10 17:10 | PN ---
Date/Time of Note Date/Time of Note DATE: 11/10/16 TIME: 17:07 Assessment/Plan VTE Prophylaxis VTE Prophylaxis Intervention: SCD's Lines/Catheters IV Catheter Type (from Nrsg): [place] Urinary Cath still in place: No Assessment/Plan Chief Complaint/Hosp Course Assessment/Plan 1. Cervical 5 to cervical 6 severe spondylosis with the cervical myelopathy and cord compression, status post cervical 5 to cervical 6 partial vertebrectomy with diskectomy and interbody fusion anterior plating. Continue morphine as needed for pelvic pain. Continue physical therapy. 2. Hypertension. Continue Cozaar. 3. Dyslipidemia. Continue statin. 4. Diabetes. Continue Actos and NovoLog per sliding scale. 5. Depression and possible memory impairment. Acute rehab evaluation pending. Further recommendations based on clinical course. Plan of care discussed with Dr. Koo. Problems: Subjective 24 Hr Interval Summary Free Text/Dictation Patient's complains of the right sided pain, unable to proceed with chemotherapy due to pain, currently patient is sitting in bed watching TV, denies fever nausea vomiting. Exam/Review of Systems Vital Signs Vitals Vital Signs Date Time Temp Pulse Resp B/P Pulse Ox O2 Delivery O2 Flow Rate FiO2 11/10/16 07:46 98.0 62 18 143/79 94 11/08/16 08:51 Nasal Cannula 2.0 11/07/16 23:30 21 Intake and Output 11/09/16 11/09/16 11/10/16 15:00 23:00 07:00 Intake Total 820 ml 400 ml Output Total 900 ml 800 ml Balance -80 ml -400 ml Results Result Diagram: 11/09/16 0420 11/09/16 0420 Results 24 hrs Laboratory Tests Test 11/09/16 20:59 11/10/16 07:49 11/10/16 12:27 Bedside Glucose 114 102 79 Medications Medications Current Medications Acetaminophen/ Hydrocodone Bitart ([place] (10/325)) 1 tab Q4H PRN PO PAIN Last administered on 11/10/16t 09:15; Admin Dose 1 TAB; Start 11/05/16 at 15:00 Ondansetron HCl (Zofran Inj) 4 mg Q6H PRN IV NAUSEA AND/OR VOMITING; Start at 15:00 Clonidine (Catapres) 0.1 mg Q6H PRN PO sbp>160; Start 11/05/16 at 15:00 Atorvastatin Calcium (Lipitor) 20 mg DAILY PO Last administered on 11/10/16 09 :16; Admin Dose 20 MG; Start 11/06/16 at 09:00 Gabapentin (Neurontin) 400 mg DAILY PO Last administered on 11/10/16 09:11; Admin Dose 400 MG; Start 11/06/16 at 09:00 Hydrochlorothiazide (Hydrochlorothiazide) 25 mg BID PO Last administered on 09:16; Admin Dose 25 MG; Start 11/05/16 at 21:00 Losartan Potassium (Cozaar) 50 mg DAILY PO Last administered on 11/10/16 09:15 ; Admin Dose 50 MG; Start 11/06/16 at 09:00 Memantine (Namenda) 5 mg HS PO Last administered on 11/09/16 20:59; Admin Dose 5 MG; Start 11/05/16 at 21:00 Pantoprazole (Protonix Tab) 40 mg BID PO Last administered on 11/10/16 09:16; Admin Dose 40 MG; Start 11/05/16 at 21:00 Pioglitazone HCl (Actos) 15 mg DAILY PO Last administered on 11/10/16 09:16; Admin Dose 15 MG; Start 11/06/16 at 09:00 Ropinirole HCl (Requip) 0.25 mg HS PO Last administered on 11/09/16 20:59; Admin Dose 0.25 MG; Start 11/05/16 at 21:00 Sertraline HCl (Zoloft) 100 mg DAILY PO Last administered on 11/10/16 09:16; Admin Dose 100 MG; Start 11/06/16 at 09:00 Miscellaneous Information 1 ea NOTE XX ; Start 11/05/16 at 18:30 Glucose (Glutose) 15 gm Q15M PRN PO DECREASED GLUCOSE; Start 11/05/16 at 18:30 Glucose (Glutose) 22.5 gm Q15M PRN PO DECREASED GLUCOSE; Start 11/05/16 at 18: 30 Dextrose (D50w Syringe) 25 ml Q15M PRN IV DECREASED GLUCOSE; Start 11/05/16 at 18:30 Dextrose (D50w Syringe) 50 ml Q15M PRN IV DECREASED GLUCOSE; Start 11/05/16 at 18:30 Glucagon (Glucagen) 1 mg Q15M PRN IM DECREASED GLUCOSE; Start 11/05/16 at 18:30 Glucose (Glutose) 15 gm Q15M PRN BUCCAL DECREASED GLUCOSE; Start 11/05/16 at 18 :30 Diagnostic Test (Pha) (Accu-Chek) 1 ea 02 XX ; Start 11/07/16 at 02:00 Morphine Sulfate (morphine) 1 mg Q4H PRN IV severe pain Last administered on t 23:37; Admin Dose 1 MG; Start 11/07/16 at 11:00 Docusate Sodium (Colace) 100 mg BID PO ; Start 11/10/16 at 21:00 Bisacodyl (Dulcolax) 10 mg DAILY PRN PO CONSTIPATION; Start 11/10/16 at 15:30 ERI CHAIDEZ Nov 10, 2016 17:10
[2016-11-10 20:55] VITALS: BP 88/51; RESP 20
[2016-11-10] MEDS: ROPINIROLE 0.25 MG TAB PO SCH (20:56)
[2016-11-10] MEDS: MEMANTINE 5 MG TAB PO SCH (20:56)
[2016-11-10] MEDS: DOCUSATE SODIUM 100 MG CAP PO SCH (20:59)
[2016-11-10 21:00] VITALS: BP 91/53
[2016-11-11] MEDS: ACCUCHECK AT 2AM (Patients on SS coverage) XX SCH (01:48)
[2016-11-11 05:09] LABS: ADD SCAN DIFF NO
[2016-11-11 05:15] LABS: BASOPHILS % 0.3 % (0.0-2.0); EOSINOPHILS # 0.2 10^3/ul (0.0-0.5); EOSINOPHILS % 2.2 % (0.0-7.0); HEMATOCRIT 34.3 % (37.0-47.0); LYMPHOCYTES % 14.1 % (15.0-51.0); MEAN CORPUSCULAR HEMOGLOBIN 28.6 pg (29.0-33.0); MEAN CORPUSCULAR HGB CONC 32.1 g/dl (32.0-37.0); MEAN CORPUSCULAR VOLUME 89.3 fl (82.0-101.0); MEAN PLATELET VOLUME 12.5 fl (7.4-10.4); MONOCYTE # 1.2 10^3/ul (0.3-0.9); MONOCYTES % 16.8 % (0.0-11.0); NEUTROPHIL # 4.6 10^3/ul (1.6-7.5); NEUTROPHILS % 66.5 % (39.0-77.0); PLATELET COUNT 152 10^3/UL (140-415); RED BLOOD COUNT 3.84 10^6/ul (4.20-5.40); WHITE BLOOD COUNT 6.9 10^3/ul (4.8-10.8)
[2016-11-11 05:33] LABS: CALCIUM 9.8 mg/dl (8.4-10.2); CREATININE 0.73 mg/dl (0.44-1.00); POTASSIUM 3.8 mmol/L (3.5-5.1)
[2016-11-11] MEDS ORDERED: SOD CHLORIDE 0.9% 1,000 ML IV ONE (07:00)
[2016-11-11] MEDS ORDERED: POLYETHYLENE GLYCOL 17 GM PACKET PO PRN (07:00)
--- NOTE | 2016-11-11 07:02 | CONS ---
Date/Time of Note Date/Time of Note DATE: 11/11/16 TIME: 06:59 Assessment/Plan Assessment/Plan Additional Assessment/Plan seen/examined awake/alert/follows/moves all/has reduced rom right shoulder/knee/ankle, feels warm to touch co right shoulder/knee/ankle pain sp cervical decompression anterior approach, wound ok poss having tendonitis, secondary to ancef use start with solumedrol, ivf bedrest for now Consultation Date/Type/Reason Admit Date/Time Nov 05, 2016 at 11:39 Exam/Review of Systems Vital Signs Vitals Vital Signs Date Time Temp Pulse Resp B/P Pulse Ox O2 Delivery O2 Flow Rate FiO2 11/10/16 21:00 91/53 11/10/16 20:55 98.7 63 20 100 11/08/16 08:51 Nasal Cannula 2.0 11/07/16 23:30 21 Intake and Output 11/10/16 11/10/16 11/11/16 15:00 23:00 07:00 Intake Total 1580 ml 480 ml Output Total 1000 ml Balance 580 ml 480 ml Results Result Diagram: 11/11/16 0440 11/11/16 0440 Results 24 hrs Laboratory Tests Test 11/10/16 07:49 11/10/16 12:27 11/10/16 17:36 11/10/16 20:27 Bedside Glucose 102 79 261 H 137 Test 11/11/16 04:40 White Blood Count 6.9 # Red Blood Count 3.84 L Hemoglobin 11.0 L Hematocrit 34.3 L Mean Corpuscular Volume 89.3 Mean Corpuscular Hemoglobin 28.6 L Mean Corpuscular Hemoglobin Concent 32.1 Red Cell Distribution Width 13.0 Platelet Count 152 Mean Platelet Volume 12.5 H Neutrophils % 66.5 Lymphocytes % 14.1 L Monocytes % 16.8 H Eosinophils % 2.2 Basophils % 0.3 Nucleated Red Blood Cells % 0.0 Neutrophils # 4.6 Lymphocytes # 1.0 Monocytes # 1.2 H Eosinophils # 0.2 Basophils # 0.0 Nucleated Red Blood Cells # 0.0 Sodium Level 132 L Potassium Level 3.8 Chloride Level 95 L Carbon Dioxide Level 32 H Anion Gap 9 Blood Urea Nitrogen 20 Creatinine 0.73 Glucose Level 145 Calcium Level 9.8 Medications Medications Current Medications Acetaminophen/ Hydrocodone Bitart ([place] (10/325)) 1 tab Q4H PRN PO PAIN Last administered on 11/10/16 17:37; Admin Dose 1 TAB; Start 11/05/16 at 15:00 Ondansetron HCl (Zofran Inj) 4 mg Q6H PRN IV NAUSEA AND/OR VOMITING; Start at 15:00 Clonidine (Catapres) 0.1 mg Q6H PRN PO sbp>160; Start 11/05/16 at 15:00 Atorvastatin Calcium (Lipitor) 20 mg DAILY PO Last administered on 11/10/16 09 :16; Admin Dose 20 MG; Start 11/06/16 at 09:00 Gabapentin (Neurontin) 400 mg DAILY PO Last administered on 11/10/16 09:11; Admin Dose 400 MG; Start 11/06/16 at 09:00 Hydrochlorothiazide (Hydrochlorothiazide) 25 mg BID PO Last administered on 09:16; Admin Dose 25 MG; Start 11/05/16 at 21:00 Losartan Potassium (Cozaar) 50 mg DAILY PO Last administered on 11/10/16 09:15 ; Admin Dose 50 MG; Start 11/06/16 at 09:00 Memantine (Namenda) 5 mg HS PO Last administered on 11/10/16 20:56; Admin Dose 5 MG; Start 11/05/16 at 21:00 Pantoprazole (Protonix Tab) 40 mg BID PO Last administered on 11/10/16 20:56; Admin Dose 40 MG; Start 11/05/16 at 21:00 Pioglitazone HCl (Actos) 15 mg DAILY PO Last administered on 11/10/16 09:16; Admin Dose 15 MG; Start 11/06/16 at 09:00 Ropinirole HCl (Requip) 0.25 mg HS PO Last administered on 11/10/16 20:56; Admin Dose 0.25 MG; Start 11/05/16 at 21:00 Sertraline HCl (Zoloft) 100 mg DAILY PO Last administered on 11/10/16 09:16; Admin Dose 100 MG; Start 11/06/16 at 09:00 Miscellaneous Information 1 ea NOTE XX ; Start 11/05/16 at 18:30 Glucose (Glutose) 15 gm Q15M PRN PO DECREASED GLUCOSE; Start 11/05/16 at 18:30 Glucose (Glutose) 22.5 gm Q15M PRN PO DECREASED GLUCOSE; Start 11/05/16 at 18: 30 Dextrose (D50w Syringe) 25 ml Q15M PRN IV DECREASED GLUCOSE; Start 11/05/16 at 18:30 Dextrose (D50w Syringe) 50 ml Q15M PRN IV DECREASED GLUCOSE; Start 11/05/16 at 18:30 Glucagon (Glucagen) 1 mg Q15M PRN IM DECREASED GLUCOSE; Start 11/05/16 at 18:30 Glucose (Glutose) 15 gm Q15M PRN BUCCAL DECREASED GLUCOSE; Start 11/05/16 at 18 :30 Diagnostic Test (Pha) (Accu-Chek) 1 ea 02 XX ; Start 11/07/16 at 02:00 Morphine Sulfate (morphine) 1 mg Q4H PRN IV severe pain Last administered on t 23:37; Admin Dose 1 MG; Start 11/07/16 at 11:00 Docusate Sodium (Colace) 100 mg BID PO ; Start 11/10/16 at 21:00 Bisacodyl (Dulcolax) 10 mg DAILY PRN PO CONSTIPATION; Start 11/10/16 at 15:30 Polyethylene Glycol (Miralax) 8.5 gm DAILY PRN PO CONSTIPATION; Start 11/11/16 at 07:00 IZA VALLE PA-C Nov 11, 2016 07:02
[2016-11-11] MEDS: Insulin NOVOLOG SS MILD Algorithm (SS with meals and bedtime) SC SCH ×4 (07:20→21:00)
[2016-11-11 08:09] VITALS: BP 102/62; PULSE 76; RESP 18
--- NOTE | 2016-11-11 08:27 | RADRPT ---
PROCEDURE: XR Knee. CLINICAL INDICATION: Inflammation / pain TECHNIQUE: AP and lateral views of the right knee are available for review. COMPARISON: None available FINDINGS: The medial and lateral femorotibial compartments are preserved, as is the patellofemoral compartment . There is no acute osseous abnormality, marginal erosion or evidence of fracture. There is evidence of chondrocalcinosis. A large joint effusion is present.. IMPRESSION: 1. No acute osseous abnormality. 2. Evidence of chondrocalcinosis in the region of the menisci. 3. Large joint effusion. RPTAT: UU .Sukhjinder Michaud MD, MD Date Time Electronically viewed and signed by .Sukhjinder Michaud MD, on 11/11/2016 08:27 .d/
[2016-11-11] MEDS: metFORMIN 500 MG TAB PO SCH ×2 (08:52→17:42)
[2016-11-11] MEDS: SERTRALINE 100 MG TAB PO SCH (08:52)
[2016-11-11] MEDS: METHYLPREDNISOLONE 40 MG INJ IV SCH ×2 (08:52→21:09)
[2016-11-11] MEDS: ATORVASTATIN 20 MG TAB PO SCH (08:52)
[2016-11-11] MEDS: GABAPENTIN 400 MG CAP PO SCH (08:52)
[2016-11-11] MEDS: PANTOPRAZOLE (EC) 40 MG TAB PO SCH ×2 (08:52→21:09)
[2016-11-11] MEDS: DOCUSATE SODIUM 100 MG CAP PO SCH ×2 (08:52→21:00)
[2016-11-11] MEDS: LOSARTAN 50 MG TAB PO SCH (08:53)
[2016-11-11] MEDS: HYDROCHLOROTHIAZIDE 25 MG TAB PO SCH ×2 (08:53→21:00)
[2016-11-11] MEDS: PIOGLITAZONE 30 MG TAB PO SCH (12:48)
[2016-11-11] MEDS: HYDROCODONE/APAP (10/325) TAB PO PRN (14:37)
--- NOTE | 2016-11-11 14:58 | PN ---
Date/Time of Note Date/Time of Note DATE: 11/11/16 TIME: 14:57 Assessment/Plan VTE Prophylaxis VTE Prophylaxis Intervention: other Lines/Catheters IV Catheter Type (from Nrsg): Peripheral IV Urinary Cath still in place: No Assessment/Plan Assessment/Plan -Right knee effusion- on steroids - pain control - elevate RLE - cont. to monitor - will get ortho consult if no improvement. - Cervical 5 to cervical 6 severe spondylosis with the cervical myelopathy and cord compression, - status post cervical 5 to cervical 6 partial vertebrectomy with diskectomy and interbody fusion anterior plating. - Continue morphine as needed for pelvic pain. Continue physical therapy. - Hypertension. Continue Cozaar. - Dyslipidemia. Continue statin. - Diabetes. Continue Actos and NovoLog per sliding scale. - Depression and possible memory impairment. Acute rehab evaluation pending.Further recommendations based on clinical course. Plan of care discussed with Dr. Koo. Subjective 24 Hr Interval Summary Free Text/Dictation C/O RIGHT KNEE PAIN. xray showed effusion , started on Solumol. at bed side- all Qs answerd. dw staff Eyes: no complaints ENT: no complaints Respiratory: no complaints Cardiovascular: no complaints Gastrointestinal: no complaints Musculoskeletal: bone/joint pain Skin: no complaints Neurologic: no complaints Endocrine: no complaints Lymphatic: no complaints Exam/Review of Systems Vital Signs Vitals Vital Signs Date Time Temp Pulse Resp B/P Pulse Ox O2 Delivery O2 Flow Rate FiO2 11/11/16 08:09 98.4 76 18 102/62 94 Room Air 11/08/16 08:51 2.0 11/07/16 23:30 21 Intake and Output 11/10/16 11/10/16 11/11/16 15:00 23:00 07:00 Intake Total 1580 ml 480 ml Output Total 1000 ml Balance 580 ml 480 ml Exam Constitutional: alert, oriented, well developed Psych: nl mood/affect Head: atraumatic Eyes: EOMI ENMT: nl external ears & nose Neck: non-tender Respiratory: clear to auscultation Cardiovascular: nl pulses Gastrointestinal: non-tender, soft Musculoskeletal: nl extremities to inspection Neurological: nl mental status, nl speech, other (sp cx 5-6 surgery) Skin: other Results Result Diagram: 11/11/16 0440 11/11/16 0440 Results 24 hrs Laboratory Tests Test 11/10/16 17:36 11/10/16 20:27 11/11/16 04:40 11/11/16 08:12 Bedside Glucose 261 H 137 119 White Blood Count 6.9 # Red Blood Count 3.84 L Hemoglobin 11.0 L Hematocrit 34.3 L Mean Corpuscular Volume 89.3 Mean Corpuscular Hemoglobin 28.6 L Mean Corpuscular Hemoglobin Concent 32.1 Red Cell Distribution Width 13.0 Platelet Count 152 Mean Platelet Volume 12.5 H Neutrophils % 66.5 Lymphocytes % 14.1 L Monocytes % 16.8 H Eosinophils % 2.2 Basophils % 0.3 Nucleated Red Blood Cells % 0.0 Neutrophils # 4.6 Lymphocytes # 1.0 Monocytes # 1.2 H Eosinophils # 0.2 Basophils # 0.0 Nucleated Red Blood Cells # 0.0 Sodium Level 132 L Potassium Level 3.8 Chloride Level 95 L Carbon Dioxide Level 32 H Anion Gap 9 Blood Urea Nitrogen 20 Creatinine 0.73 Glucose Level 145 Calcium Level 9.8 Test 11/11/16 11:48 Bedside Glucose 134 Medications Medications Current Medications Acetaminophen/ Hydrocodone Bitart ([place] (10/325)) 1 tab Q4H PRN PO PAIN Last administered on 11/11/16 14:37; Admin Dose 1 TAB; Start 11/05/16 at 15:00 Ondansetron HCl (Zofran Inj) 4 mg Q6H PRN IV NAUSEA AND/OR VOMITING; Start at 15:00 Clonidine (Catapres) 0.1 mg Q6H PRN PO sbp>160; Start 11/05/16 at 15:00 Atorvastatin Calcium (Lipitor) 20 mg DAILY PO Last administered on 11/11/16 08 :52; Admin Dose 20 MG; Start 11/06/16 at 09:00 Gabapentin (Neurontin) 400 mg DAILY PO Last administered on 11/11/16 08:52; Admin Dose 400 MG; Start 11/06/16 at 09:00 Hydrochlorothiazide (Hydrochlorothiazide) 25 mg BID PO Last administered on 08:53; Admin Dose 25 MG; Start 11/05/16 at 21:00 Losartan Potassium (Cozaar) 50 mg DAILY PO Last administered on 11/11/16 08:53 ; Admin Dose 50 MG; Start 11/06/16 at 09:00 Memantine (Namenda) 5 mg HS PO Last administered on 11/10/16 20:56; Admin Dose 5 MG; Start 11/05/16 at 21:00 Pantoprazole (Protonix Tab) 40 mg BID PO Last administered on 11/11/16 08:52; Admin Dose 40 MG; Start 11/05/16 at 21:00 Ropinirole HCl (Requip) 0.25 mg HS PO Last administered on 11/10/16 20:56; Admin Dose 0.25 MG; Start 11/05/16 at 21:00 Sertraline HCl (Zoloft) 100 mg DAILY PO Last administered on 11/11/16 08:52; Admin Dose 100 MG; Start 11/06/16 at 09:00 Miscellaneous Information 1 ea NOTE XX ; Start 11/05/16 at 18:30 Glucose (Glutose) 15 gm Q15M PRN PO DECREASED GLUCOSE; Start 11/05/16 at 18:30 Glucose (Glutose) 22.5 gm Q15M PRN PO DECREASED GLUCOSE; Start 11/05/16 at 18: 30 Dextrose (D50w Syringe) 25 ml Q15M PRN IV DECREASED GLUCOSE; Start 11/05/16 at 18:30 Dextrose (D50w Syringe) 50 ml Q15M PRN IV DECREASED GLUCOSE; Start 11/05/16 at 18:30 Glucagon (Glucagen) 1 mg Q15M PRN IM DECREASED GLUCOSE; Start 11/05/16 at 18:30 Glucose (Glutose) 15 gm Q15M PRN BUCCAL DECREASED GLUCOSE; Start 11/05/16 at 18 :30 Diagnostic Test (Pha) (Accu-Chek) 1 ea 02 XX ; Start 11/07/16 at 02:00 Morphine Sulfate (morphine) 1 mg Q4H PRN IV severe pain Last administered on 23:37; Admin Dose 1 MG; Start 11/07/16 at 11:00 Docusate Sodium (Colace) 100 mg BID PO Last administered on 11/11/16 08:52; Admin Dose 100 MG; Start 11/10/16 at 21:00 Bisacodyl (Dulcolax) 10 mg DAILY PRN PO CONSTIPATION; Start 11/10/16 at 15:30 Polyethylene Glycol (Miralax) 8.5 gm DAILY PRN PO CONSTIPATION; Start 11/11/16 at 07:00 Methylprednisolone Sodium Succinate 40 mg 40 mg Q12 IV Last administered on 08:52; Admin Dose 40 MG; Start 11/11/16 at 09:00 Sodium Chloride (NS) 1,000 ml @ 100 mls/hr Q10H ONCE IV Last administered on 08:08; Admin Dose 100 MLS/HR; Start 11/11/16 at 07:00; Stop 11/11/16 at 16:59 Pioglitazone HCl (Actos) 15 mg DAILY PO Last administered on 11/11/16 12:48; Admin Dose 15 MG; Start 11/11/16 at 10:36 NESTOR BARKSDALE Nov 11, 2016 14:58
[2016-11-11] MEDS ORDERED: BISACODYL (EC) 5 MG TAB PO PRN (16:00)
[2016-11-11 20:30] VITALS: BP 98/56; RESP 20
[2016-11-11] MEDS: ROPINIROLE 0.25 MG TAB PO SCH (21:09)
[2016-11-11] MEDS: MEMANTINE 5 MG TAB PO SCH (21:09)
[2016-11-12] MEDS: ACCUCHECK AT 2AM (Patients on SS coverage) XX SCH (01:53)
[2016-11-12] MEDS: HYDROCODONE/APAP (10/325) TAB PO PRN ×4 (02:23→17:52)
[2016-11-12 05:20] LABS: ADD SCAN DIFF NO
[2016-11-12 05:25] LABS: ABNORMAL IP MESSAGE 1; HEMATOCRIT 33.1 % (37.0-47.0); HEMOGLOBIN 10.7 g/dl (12.0-16.0); LYMPHOCYTES # 0.5 10^3/ul (0.8-2.9); LYMPHOCYTES % 6.9 % (15.0-51.0); MEAN CORPUSCULAR HEMOGLOBIN 29.1 pg (29.0-33.0); MEAN CORPUSCULAR HGB CONC 32.3 g/dl (32.0-37.0); MEAN CORPUSCULAR VOLUME 89.9 fl (82.0-101.0); MEAN PLATELET VOLUME 12.8 fl (7.4-10.4); MONOCYTE # 0.5 10^3/ul (0.3-0.9); NEUTROPHIL # 6.3 10^3/ul (1.6-7.5); NEUTROPHILS % 85.6 % (39.0-77.0); PLATELET COUNT 151 10^3/UL (140-415); RED BLOOD COUNT 3.68 10^6/ul (4.20-5.40); RED CELL DISTRIBUTION WIDTH 12.9 % (11.5-14.5); WHITE BLOOD COUNT 7.4 10^3/ul (4.8-10.8)
[2016-11-12 05:42] LABS: POTASSIUM 3.5 mmol/L (3.5-5.1)
[2016-11-12 05:45] LABS: CREATININE 0.54 mg/dl (0.44-1.00)
[2016-11-12 05:46] LABS: CALCIUM 9.6 mg/dl (8.4-10.2)
[2016-11-12] MEDS: Insulin NOVOLOG SS MILD Algorithm (SS with meals and bedtime) SC SCH ×4 (07:20→21:00)
[2016-11-12 08:27] VITALS: BP 148/77; RESP 18
[2016-11-12] MEDS: SERTRALINE 100 MG TAB PO SCH (08:41)
[2016-11-12] MEDS: ATORVASTATIN 20 MG TAB PO SCH (08:41)
[2016-11-12] MEDS: METHYLPREDNISOLONE 40 MG INJ IV SCH (08:41)
[2016-11-12] MEDS: metFORMIN 500 MG TAB PO SCH ×2 (08:41→17:49)
[2016-11-12] MEDS: GABAPENTIN 400 MG CAP PO SCH (08:41)
[2016-11-12] MEDS: PANTOPRAZOLE (EC) 40 MG TAB PO SCH ×2 (08:42→20:56)
[2016-11-12] MEDS: BISACODYL (EC) 5 MG TAB PO PRN (08:42)
[2016-11-12] MEDS: PIOGLITAZONE 30 MG TAB PO SCH (08:42)
[2016-11-12] MEDS: DOCUSATE SODIUM 100 MG CAP PO SCH ×2 (08:43→20:56)
[2016-11-12] MEDS: LOSARTAN 50 MG TAB PO SCH (08:43)
[2016-11-12] MEDS: HYDROCHLOROTHIAZIDE 25 MG TAB PO SCH ×2 (08:43→21:00)
--- NOTE | 2016-11-12 14:25 | CONS ---
Date/Time of Note Date/Time of Note DATE: 11/12/16 TIME: 14:24 Assessment/Plan Assessment/Plan Additional Assessment/Plan seen/examined awake/alert/follows/moves all/sensation intact pain has improved after steroid use no evidence of inflammation in joints on exam taper steroids and dc ok for pt/ot may go to rehab Consultation Date/Type/Reason Admit Date/Time Nov 05, 2016 at 11:39 Exam/Review of Systems Vital Signs Vitals Vital Signs Date Time Temp Pulse Resp B/P Pulse Ox O2 Delivery O2 Flow Rate FiO2 11/12/16 08:27 97.5 69 18 148/77 94 11/11/16 08:09 Room Air 11/08/16 08:51 2.0 Intake and Output 11/11/16 11/11/16 11/12/16 15:00 23:00 07:00 Intake Total 2560 ml 750 ml Output Total 700 ml Balance 2560 ml 50 ml Results Result Diagram: 11/12/16 0415 11/12/16 0415 Results 24 hrs Laboratory Tests Test 11/11/16 17:11 11/11/16 20:24 11/12/16 04:15 11/12/16 07:45 Bedside Glucose 185 137 139 White Blood Count 7.4 Red Blood Count 3.68 L Hemoglobin 10.7 L Hematocrit 33.1 L Mean Corpuscular Volume 89.9 Mean Corpuscular Hemoglobin 29.1 Mean Corpuscular Hemoglobin Concent 32.3 Red Cell Distribution Width 12.9 Platelet Count 151 Mean Platelet Volume 12.8 H Neutrophils % 85.6 H Lymphocytes % 6.9 L Monocytes % 7.0 Eosinophils % 0.0 Basophils % 0.0 Nucleated Red Blood Cells % 0.0 Neutrophils # 6.3 Lymphocytes # 0.5 L Monocytes # 0.5 Eosinophils # 0.0 Basophils # 0.0 Nucleated Red Blood Cells # 0.0 Sodium Level 136 Potassium Level 3.5 Chloride Level 97 Carbon Dioxide Level 29 Anion Gap 14 Blood Urea Nitrogen 19 Creatinine 0.54 Glucose Level 174 Calcium Level 9.6 Test 11/12/16 11:35 Bedside Glucose 149 Medications Medications Current Medications Acetaminophen/ Hydrocodone Bitart ([place] (10/325)) 1 tab Q4H PRN PO PAIN Last administered on 11/12/16t 12:41; Admin Dose 1 TAB; Start 11/05/16 at 15:00 Ondansetron HCl (Zofran Inj) 4 mg Q6H PRN IV NAUSEA AND/OR VOMITING; Start at 15:00 Clonidine (Catapres) 0.1 mg Q6H PRN PO sbp>160; Start 11/05/16 at 15:00 Atorvastatin Calcium (Lipitor) 20 mg DAILY PO Last administered on 11/12/16 08 :41; Admin Dose 20 MG; Start 11/06/16 at 09:00 Gabapentin (Neurontin) 400 mg DAILY PO Last administered on 11/12/16 08:41; Admin Dose 400 MG; Start 11/06/16 at 09:00 Hydrochlorothiazide (Hydrochlorothiazide) 25 mg BID PO Last administered on 08:43; Admin Dose 25 MG; Start 11/05/16 at 21:00 Losartan Potassium (Cozaar) 50 mg DAILY PO Last administered on 11/12/16 08:43 ; Admin Dose 50 MG; Start 11/06/16 at 09:00 Memantine (Namenda) 5 mg HS PO Last administered on 11/11/16 21:09; Admin Dose 5 MG; Start 11/05/16 at 21:00 Pantoprazole (Protonix Tab) 40 mg BID PO Last administered on 11/12/16 08:42; Admin Dose 40 MG; Start 11/05/16 at 21:00 Ropinirole HCl (Requip) 0.25 mg HS PO Last administered on 11/11/16 21:09; Admin Dose 0.25 MG; Start 11/05/16 at 21:00 Sertraline HCl (Zoloft) 100 mg DAILY PO Last administered on 11/12/16 08:41; Admin Dose 100 MG; Start 11/06/16 at 09:00 Miscellaneous Information 1 ea NOTE XX ; Start 11/05/16 at 18:30 Glucose (Glutose) 15 gm Q15M PRN PO DECREASED GLUCOSE; Start 11/05/16 at 18:30 Glucose (Glutose) 22.5 gm Q15M PRN PO DECREASED GLUCOSE; Start 11/05/16 at 18: 30 Dextrose (D50w Syringe) 25 ml Q15M PRN IV DECREASED GLUCOSE; Start 11/05/16 at 18:30 Dextrose (D50w Syringe) 50 ml Q15M PRN IV DECREASED GLUCOSE; Start 11/05/16 at 18:30 Glucagon (Glucagen) 1 mg Q15M PRN IM DECREASED GLUCOSE; Start 11/05/16 at 18:30 Glucose (Glutose) 15 gm Q15M PRN BUCCAL DECREASED GLUCOSE; Start 11/05/16 at 18 :30 Diagnostic Test (Pha) (Accu-Chek) 1 ea 02 XX ; Start 11/07/16 at 02:00 Morphine Sulfate (morphine) 1 mg Q4H PRN IV severe pain Last administered on 23:37; Admin Dose 1 MG; Start 11/07/16 at 11:00 Docusate Sodium (Colace) 100 mg BID PO Last administered on 11/11/16 08:52; Admin Dose 100 MG; Start 11/10/16 at 21:00 Bisacodyl (Dulcolax) 10 mg DAILY PRN PO CONSTIPATION Last administered on 08:42; Admin Dose 10 MG; Start 11/10/16 at 15:30 Polyethylene Glycol (Miralax) 8.5 gm DAILY PRN PO CONSTIPATION; Start 11/11/16 at 07:00 Methylprednisolone Sodium Succinate (Solu-Medrol) 40 mg Q12 IV Last administered on 11/12/16 08:41; Admin Dose 40 MG; Start 11/11/16 at 09:00 Pioglitazone HCl (Actos) 15 mg DAILY PO Last administered on 11/12/16 08:42; Admin Dose 15 MG; Start 11/11/16 at 10:36 Bisacodyl (Dulcolax) 5 mg BID PRN PO CONSTIPATION; Start 11/11/16 at 16:00 IZA VALLE PA-C Nov 12, 2016 14:25
--- NOTE | 2016-11-12 16:41 | PN ---
Date/Time of Note Date/Time of Note DATE: 11/12/16 TIME: 16:34 Assessment/Plan VTE Prophylaxis VTE Prophylaxis Intervention: SCD's Lines/Catheters IV Catheter Type (from Nrs): Saline Lock Urinary Cath still in place: No Assessment/Plan Chief Complaint/Hosp Course Assessment/Plan 1. Cervical 5 to cervical 6 severe spondylosis with the cervical myelopathy and cord compression, status post cervical 5 to cervical 6 partial vertebrectomy with diskectomy and interbody fusion anterior plating. Continue morphine as needed for pelvic pain. Continue physical therapy. 2. Hypertension. Continue Cozaar. 3. Dyslipidemia. Continue statin. 4. Diabetes. Continue Actos and NovoLog per sliding scale. 5. Depression and possible memory impairment. DC to acute rehab upon bed availability Further recommendations based on clinical course. Plan of care discussed with Dr. Koo. Problems: Subjective 24 Hr Interval Summary Free Text/Dictation Patient stated that her pain is better controlled, no fever nausea vomiting. Exam/Review of Systems Vital Signs Vitals Vital Signs Date Time Temp Pulse Resp B/P Pulse Ox O2 Delivery O2 Flow Rate FiO2 11/12/16 08:27 97.5 69 18 148/77 94 11/11/16 08:09 Room Air 11/08/16 08:51 2.0 Intake and Output 11/11/16 11/11/16 11/12/16 15:00 23:00 07:00 Intake Total 2560 ml 750 ml Output Total 700 ml Balance 2560 ml 50 ml Exam Constitutional: alert, oriented Psych: no complaints Head: atraumatic, normocephalic Eyes: nl conjunctiva ENMT: nl external ears & nose Neck: other (Status post surgery, cervical collar) Respiratory: clear to auscultation, normal air movement Cardiovascular: nl pulses, regular rate and rhythm Gastrointestinal: non-tender, soft Genitourinary - Female: nl adnexae Musculoskeletal: nl extremities to inspection Extremities: normal pulses Neurological: BLOW PIT HELPER 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 Results Result Diagram: 11/12/16 0415 11/12/16 0415 Results 24 hrs Laboratory Tests Test 11/11/16 17:11 11/11/16 20:24 11/12/16 04:15 11/12/16 07:45 Bedside Glucose 185 137 139 White Blood Count 7.4 Red Blood Count 3.68 L Hemoglobin 10.7 L Hematocrit 33.1 L Mean Corpuscular Volume 89.9 Mean Corpuscular Hemoglobin 29.1 Mean Corpuscular Hemoglobin Concent 32.3 Red Cell Distribution Width 12.9 Platelet Count 151 Mean Platelet Volume 12.8 H Neutrophils % 85.6 H Lymphocytes % 6.9 L Monocytes % 7.0 Eosinophils % 0.0 Basophils % 0.0 Nucleated Red Blood Cells % 0.0 Neutrophils # 6.3 Lymphocytes # 0.5 L Monocytes # 0.5 Eosinophils # 0.0 Basophils # 0.0 Nucleated Red Blood Cells # 0.0 Sodium Level 136 Potassium Level 3.5 Chloride Level 97 Carbon Dioxide Level 29 Anion Gap 14 Blood Urea Nitrogen 19 Creatinine 0.54 Glucose Level 174 Calcium Level 9.6 Test 11/12/16 11:35 Bedside Glucose 149 Medications Medications Current Medications Acetaminophen/ Hydrocodone Bitart ([place] (10)) 1 tab Q4H PRN PO PAIN Last administered on 11/12/16 12:41; Admin Dose 1 TAB; Start 11/05/16 at 15:00 Ondansetron HCl (Zofran Inj) 4 mg Q6H PRN IV NAUSEA AND/OR VOMITING; Start at 15:00 Clonidine (Catapres) 0.1 mg Q6H PRN PO sbp>160; Start 11/05/16 at 15:00 Atorvastatin Calcium (Lipitor) 20 mg DAILY PO Last administered on 11/12/16 08 :41; Admin Dose 20 MG; Start 11/06/16 at 09:00 Gabapentin (Neurontin) 400 mg DAILY PO Last administered on 11/12/16 08:41; Admin Dose 400 MG; Start 11/06/16 at 09:00 Hydrochlorothiazide (Hydrochlorothiazide) 25 mg BID PO Last administered on 08:43; Admin Dose 25 MG; Start 11/05/16 at 21:00 Losartan Potassium (Cozaar) 50 mg DAILY PO Last administered on 11/12/16 08:43 ; Admin Dose 50 MG; Start 11/06/16 at 09:00 Memantine (Namenda) 5 mg HS PO Last administered on 11/11/16 21:09; Admin Dose 5 MG; Start 11/05/16 at 21:00 Pantoprazole (Protonix Tab) 40 mg BID PO Last administered on 11/12/16 08:42; Admin Dose 40 MG; Start 11/05/16 at 21:00 Ropinirole HCl (Requip) 0.25 mg HS PO Last administered on 11/11/16 21:09; Admin Dose 0.25 MG; Start 11/05/16 at 21:00 Sertraline HCl (Zoloft) 100 mg DAILY PO Last administered on 11/12/16 08:41; Admin Dose 100 MG; Start 11/06/16 at 09:00 Miscellaneous Information 1 ea NOTE XX ; Start 11/05/16 at 18:30 Glucose (Glutose) 15 gm Q15M PRN PO DECREASED GLUCOSE; Start 11/05/16 at 18:30 Glucose (Glutose) 22.5 gm Q15M PRN PO DECREASED GLUCOSE; Start 11/05/16 at 18: 30 Dextrose (D50w Syringe) 25 ml Q15M PRN IV DECREASED GLUCOSE; Start 11/05/16 at 18:30 Dextrose (D50w Syringe) 50 ml Q15M PRN IV DECREASED GLUCOSE; Start 11/05/16 at 18:30 Glucagon (Glucagen) 1 mg Q15M PRN IM DECREASED GLUCOSE; Start 11/05/16 at 18:30 Glucose (Glutose) 15 gm Q15M PRN BUCCAL DECREASED GLUCOSE; Start 11/05/16 at 18 :30 Diagnostic Test (Pha) (Accu-Chek) 1 ea 02 XX ; Start 11/07/16 at 02:00 Morphine Sulfate (morphine) 1 mg Q4H PRN IV severe pain Last administered on 23:37; Admin Dose 1 MG; Start 11/07/16 at 11:00 Docusate Sodium (Colace) 100 mg BID PO Last administered on 11/11/16 08:52; Admin Dose 100 MG; Start 11/10/16 at 21:00 Bisacodyl (Dulcolax) 10 mg DAILY PRN PO CONSTIPATION Last administered on 08:42; Admin Dose 10 MG; Start 11/10/16 at 15:30 Polyethylene Glycol (Miralax) 8.5 gm DAILY PRN PO CONSTIPATION; Start 11/11/16 at 07:00 Pioglitazone HCl (Actos) 15 mg DAILY PO Last administered on 11/12/16 08:42; Admin Dose 15 MG; Start 11/11/16 at 10:36 Bisacodyl (Dulcolax) 5 mg BID PRN PO CONSTIPATION; Start 11/11/16 at 16:00 Methylprednisolone Sodium Succinate (Solu-Medrol) 40 mg DAILY IV ; Start at 09:00; Stop 11/14/16 at 09:00 ERI CHAIDEZ Nov 12, 2016 16:41
[2016-11-12] MEDS ORDERED: ZOLPIDEM 5 MG TAB PO PRN (20:30)
[2016-11-12] MEDS: MEMANTINE 5 MG TAB PO SCH (20:56)
[2016-11-12] MEDS: ROPINIROLE 0.25 MG TAB PO SCH (20:56)
[2016-11-12 21:12] VITALS: BP 108/68; RESP 20
[2016-11-13] MEDS: ACCUCHECK AT 2AM (Patients on SS coverage) XX SCH (02:00)
[2016-11-13] MEDS: Insulin NOVOLOG SS MILD Algorithm (SS with meals and bedtime) SC SCH ×2 (07:20→11:10)
[2016-11-13 07:58] VITALS: BP 127/70; RESP 16
[2016-11-13] MEDS: GABAPENTIN 400 MG CAP PO SCH (08:45)
[2016-11-13] MEDS: metFORMIN 500 MG TAB PO SCH (08:45)
[2016-11-13] MEDS: BISACODYL (EC) 5 MG TAB PO PRN (08:45)
[2016-11-13] MEDS: PIOGLITAZONE 30 MG TAB PO SCH (08:45)
[2016-11-13] MEDS: PANTOPRAZOLE (EC) 40 MG TAB PO SCH (08:46)
[2016-11-13] MEDS: ATORVASTATIN 20 MG TAB PO SCH (08:46)
[2016-11-13] MEDS: SERTRALINE 100 MG TAB PO SCH (08:48)
[2016-11-13] MEDS: HYDROCHLOROTHIAZIDE 25 MG TAB PO SCH (08:49)
[2016-11-13] MEDS: LOSARTAN 50 MG TAB PO SCH (08:49)
[2016-11-13] MEDS ORDERED: METHYLPREDNISOLONE 40 MG INJ IV SCH (09:00)
[2016-11-13] MEDS: DOCUSATE SODIUM 100 MG CAP PO SCH (09:00)
[2016-11-13] MEDS: HYDROCODONE/APAP (10/325) TAB PO PRN ×2 (10:44→15:07)
--- NOTE | 2016-11-13 11:34 | PN ---
Date/Time of Note Date/Time of Note DATE: 11/13/16 TIME: 11:33 Assessment/Plan VTE Prophylaxis VTE Prophylaxis Intervention: other Lines/Catheters IV Catheter Type (from Nrsg): Saline Lock Urinary Cath still in place: No Assessment/Plan Chief Complaint/Hosp Course 1. Cervical 5 to cervical 6 severe spondylosis with the cervical myelopathy and cord compression, status post cervical 5 to cervical 6 partial vertebrectomy with diskectomy and interbody fusion anterior plating. Continue morphine as needed for pelvic pain. Continue physical therapy. 2. Hypertension. Continue Cozaar. 3. Dyslipidemia. Continue statin. 4. Diabetes. Continue Actos and NovoLog per sliding scale. 5. Depression and possible memory impairment. DC to acute rehab upon bed availability Problems: Subjective 24 Hr Interval Summary Free Text/Dictation Patient still have neck pain Exam/Review of Systems Vital Signs Vitals Vital Signs Date Time Temp Pulse Resp B/P Pulse Ox O2 Delivery O2 Flow Rate FiO2 11/13/16 07:58 97.6 68 16 127/70 98 11/11/16 08:09 Room Air Intake and Output 11/12/16 11/12/16 11/13/16 15:00 23:00 07:00 Intake Total 960 ml 720 ml Output Total 860 ml 780 ml Balance 100 ml -60 ml Exam Constitutional: well developed Head: atraumatic, normocephalic Neck: supple Respiratory: clear to auscultation Cardiovascular: regular rate and rhythm Gastrointestinal: non-tender, soft Extremities: normal pulses Results Result Diagram: 11/12/16 0415 11/12/16 0415 Results 24 hrs Laboratory Tests Test 11/12/16 11:35 11/12/16 17:17 11/12/16 21:03 11/13/16 07:43 Bedside Glucose 149 156 136 112 Medications Medications Current Medications Acetaminophen/ Hydrocodone Bitart ([place] (10/325)) 1 tab Q4H PRN PO PAIN Last administered on 11/13/16t 10:44; Admin Dose 1 TAB; Start 11/05/16 at 15:00 Ondansetron HCl (Zofran Inj) 4 mg Q6H PRN IV NAUSEA AND/OR VOMITING; Start at 15:00 Clonidine (Catapres) 0.1 mg Q6H PRN PO sbp>160; Start 11/05/16 at 15:00 Atorvastatin Calcium (Lipitor) 20 mg DAILY PO Last administered on 11/13/16 08 :46; Admin Dose 20 MG; Start 11/06/16 at 09:00 Gabapentin (Neurontin) 400 mg DAILY PO Last administered on 11/13/16 08:45; Admin Dose 400 MG; Start 11/06/16 at 09:00 Hydrochlorothiazide (Hydrochlorothiazide) 25 mg BID PO Last administered on 08:49; Admin Dose 25 MG; Start 11/05/16 at 21:00 Losartan Potassium (Cozaar) 50 mg DAILY PO Last administered on 11/13/16 08:49 ; Admin Dose 50 MG; Start 11/06/16 at 09:00 Memantine (Namenda) 5 mg HS PO Last administered on 11/12/16 20:56; Admin Dose 5 MG; Start 11/05/16 at 21:00 Pantoprazole (Protonix Tab) 40 mg BID PO Last administered on 11/13/16 08:46; Admin Dose 40 MG; Start 11/05/16 at 21:00 Ropinirole HCl (Requip) 0.25 mg HS PO Last administered on 11/12/16 20:56; Admin Dose 0.25 MG; Start 11/05/16 at 21:00 Sertraline HCl (Zoloft) 100 mg DAILY PO Last administered on 11/13/16 08:48; Admin Dose 100 MG; Start 11/06/16 at 09:00 Miscellaneous Information 1 ea NOTE XX ; Start 11/05/16 at 18:30 Glucose (Glutose) 15 gm Q15M PRN PO DECREASED GLUCOSE; Start 11/05/16 at 18:30 Glucose (Glutose) 22.5 gm Q15M PRN PO DECREASED GLUCOSE; Start 11/05/16 at 18: 30 Dextrose (D50w Syringe) 25 ml Q15M PRN IV DECREASED GLUCOSE; Start 11/05/16 at 18:30 Dextrose (D50w Syringe) 50 ml Q15M PRN IV DECREASED GLUCOSE; Start 11/05/16 at 18:30 Glucagon (Glucagen) 1 mg Q15M PRN IM DECREASED GLUCOSE; Start 11/05/16 at 18:30 Glucose (Glutose) 15 gm Q15M PRN BUCCAL DECREASED GLUCOSE; Start 11/05/16 at 18 :30 Diagnostic Test (Pha) (Accu-Chek) 1 ea 02 XX ; Start 11/07/16 at 02:00 Morphine Sulfate (morphine) 1 mg Q4H PRN IV severe pain Last administered on 23:37; Admin Dose 1 MG; Start 11/07/16 at 11:00 Docusate Sodium (Colace) 100 mg BID PO Last administered on 11/12/16 20:56; Admin Dose 100 MG; Start 11/10/16 at 21:00 Bisacodyl (Dulcolax) 10 mg DAILY PRN PO CONSTIPATION Last administered on 08:45; Admin Dose 10 MG; Start 11/10/16 at 15:30 Polyethylene Glycol (Miralax) 8.5 gm DAILY PRN PO CONSTIPATION; Start 11/11/16 at 07:00 Pioglitazone HCl (Actos) 15 mg DAILY PO Last administered on 11/13/16 08:45; Admin Dose 15 MG; Start 11/11/16 at 10:36 Bisacodyl (Dulcolax) 5 mg BID PRN PO CONSTIPATION; Start 11/11/16 at 16:00 Methylprednisolone Sodium Succinate (Solu-Medrol) 40 mg DAILY IV Last administered on 11/13/16 08:44; Admin Dose 40 MG; Start 11/13/16 at 09:00; Stop 11/14/16 at 09:00 Zolpidem Tartrate (Ambien) 5 mg HS PRN PO INSOMNIA Last administered on 00:51; Admin Dose 5 MG; Start 11/12/16 at 20:30 RITA VÁSQUEZ Nov 13, 2016 11:34
== END 2016-11-13 15:45 | DRG 473 ==
LOC: REC 11:39 → ICU 19:47 → MS1 11-06 11:39
PROVIDERS: ADMIT Internal Medicine; ATTEND Internal Medicine
PROC: 0RB30ZZ Excision of Cervical Vertebral Disc, Open Approach (ICD-10-PCS; 2016-11-05)
PROC: 0RG10K0 Fusion of Cervical Vertebral Joint with Nonautologous Tissue Substitute, Anterior Approach, Anterior Column, Open Approach (ICD-10-PCS; principal; 2016-11-05 14:30)
DX: M47.12 Other spondylosis with myelopathy, cervical region (principal); E11.40 Type 2 diabetes mellitus with diabetic neuropathy, unspecified; F32.9 Major depressive disorder, single episode, unspecified; E78.5 Hyperlipidemia, unspecified; M48.02 Spinal stenosis, cervical region; M62.81 Muscle weakness (generalized); M47.22 Other spondylosis with radiculopathy, cervical region; I10 Essential (primary) hypertension; M25.461 Effusion, right knee
CPT/HCPCS: 72050; 72141; 73560; 80048; 80053; 82962; 85025; 86850; 86900; 86901; 87081; 87086; 88304; 94664; 97116; 97162; 97530; C1713; J0330; J0690; J1100; J1815; J2175; J2270; J2310; J2405; J2710; J2765; J2920; J7030; J7042; J7121

== ENCOUNTER 2016-11-12 18:15 | Inpatient (IN) | payer MEDICARE, BC ==
[~2016-11-12] VITALS: Ht 154.9 cm; Wt 56.0 kg
[~2016-11-12 18:15] MED LIST changes: +ALBU18HF INHALATION; +ASPI-664 PO; +IBAN150T7 PO; +LOSA50TA6 PO; +MELO7.5O PO; +METF-405 PO; +METF500T4 PO; +METO10TA96 PO; +PANT40TA4 PO; +PIOG15TA21 PO; +ROPI0.25 PO; -STOMACH MED PO
[2016-11-13] MEDS ORDERED: POLYETHYLENE GLYCOL 17 GM PACKET PO PRN (16:30)
[2016-11-13] MEDS ORDERED: ONDANSETRON 4 MG INJ IV PRN (16:30)
[2016-11-13] MEDS ORDERED: BISACODYL (EC) 5 MG TAB PO PRN (17:00)
[2016-11-13] MEDS ORDERED: DEXTROSE 50% 50 ML SYRINGE IV PRN ×2 (17:00)
[2016-11-13] MEDS ORDERED: GLUCOSE GEL 15 GRAM TUBE PO PRN ×2 (17:00)
[2016-11-13] MEDS ORDERED: ALBUTEROL 0.083% (NEB) 2.5 MG/3 ML AMP HHN PRN (17:00)
[2016-11-13] MEDS ORDERED: morphine 2 MG INJ IV PRN (17:00)
[2016-11-13] MEDS ORDERED: GLUCOSE GEL 15 GRAM TUBE BUCCAL PRN (17:00)
[2016-11-13] MEDS ORDERED: GLUCAGON 1 MG INJ IM PRN (17:00)
[2016-11-13] MEDS: Insulin NOVOLOG SS MILD Algorithm (SS with meals and bedtime) SC SCH ×2 (17:05→21:00)
[2016-11-13 17:09] VITALS: BP 105/68; PULSE 80; RESP 18
[2016-11-13] MEDS ORDERED: BISACODYL 10 MG SUPP PR PRN (17:30)
[2016-11-13] MEDS: HYDROCHLOROTHIAZIDE 25 MG TAB PO SCH (18:02)
[2016-11-13] MEDS: metFORMIN 500 MG TAB PO SCH (18:02)
[2016-11-13] MEDS: PANTOPRAZOLE (EC) 40 MG TAB PO SCH (18:02)
[2016-11-13 20:18] VITALS: BP 113/67; RESP 18
[2016-11-13] MEDS: DOCUSATE SODIUM 100 MG CAP PO SCH ×2 (21:00→21:14)
[2016-11-13] MEDS: MEMANTINE 5 MG TAB PO SCH (21:15)
[2016-11-13] MEDS: ROPINIROLE 0.25 MG TAB PO SCH (21:15)
[2016-11-14 00:58] LABS: ADD UMIC YES; URINE BILIRUBIN (Dip) NEGATIVE (NEGATIVE); URINE BLOOD (Dip) TRACE (NEGATIVE); URINE COLOR LT. YELLOW (YELLOW); URINE GLUCOSE (Dip) NEGATIVE (NEGATIVE); URINE KETONES (Dip) NEGATIVE (NEGATIVE); URINE LEUKOCYTE ESTERASE (Dip) NEGATIVE (NEGATIVE); URINE NITRITE (Dip) NEGATIVE (NEGATIVE); URINE TOTAL PROTEIN (Dip) NEGATIVE (NEGATIVE); URINE UROBILINOGEN (Dip) 0.2 E.U./dL (0.1-1.0)
[2016-11-14 01:08] LABS: SQUAMOUS EPITHELIAL CELL,UR FEW; URINE RBCS 0-2 /HPF ([, 0])
[2016-11-14 01:09] LABS: BACTERIA,URINE OCCASIONAL
[2016-11-14] MEDS: ACCUCHECK AT 2AM (Patients on SS coverage) XX SCH (02:00)
[2016-11-14] MEDS: PANTOPRAZOLE (EC) 40 MG TAB PO SCH ×2 (06:48→17:34)
[2016-11-14] MEDS: HYDROCHLOROTHIAZIDE 25 MG TAB PO SCH ×2 (06:48→17:34)
[2016-11-14] MEDS: Insulin NOVOLOG SS MILD Algorithm (SS with meals and bedtime) SC SCH ×4 (07:05→21:00)
[2016-11-14 07:30] VITALS: BP 143/75; RESP 18
[2016-11-14 07:43] LABS: ADD SCAN DIFF NO
[2016-11-14 07:47] LABS: BASOPHILS % 0.6 % (0.0-2.0); EOSINOPHILS # 0.1 10^3/ul (0.0-0.5); EOSINOPHILS % 1.6 % (0.0-7.0); HEMATOCRIT 31.9 % (37.0-47.0); HEMOGLOBIN 10.4 g/dl (12.0-16.0); LYMPHOCYTES # 1.7 10^3/ul (0.8-2.9); LYMPHOCYTES % 32.4 % (15.0-51.0); MEAN CORPUSCULAR HEMOGLOBIN 29.4 pg (29.0-33.0); MEAN CORPUSCULAR HGB CONC 32.6 g/dl (32.0-37.0); MEAN CORPUSCULAR VOLUME 90.1 fl (82.0-101.0); MEAN PLATELET VOLUME 12.7 fl (7.4-10.4); MONOCYTE # 0.6 10^3/ul (0.3-0.9); MONOCYTES % 12.2 % (0.0-11.0); NEUTROPHIL # 2.7 10^3/ul (1.6-7.5); NEUTROPHILS % 52.8 % (39.0-77.0); PLATELET COUNT 203 10^3/UL (140-415); RED BLOOD COUNT 3.54 10^6/ul (4.20-5.40); RED CELL DISTRIBUTION WIDTH 12.9 % (11.5-14.5); WHITE BLOOD COUNT 5.1 10^3/ul (4.8-10.8)
[2016-11-14] MEDS: metFORMIN 500 MG TAB PO SCH ×2 (08:00→17:34)
[2016-11-14 08:10] LABS: ALBUMIN 3.2 g/dl (3.3-4.9); POTASSIUM 3.6 mmol/L (3.5-5.1)
[2016-11-14 08:12] LABS: BILIRUBIN,INDIRECT 0.2 mg/dl (0-1.1); BILIRUBIN,TOTAL 0.2 mg/dl (0.2-1.3); CREATININE 0.78 mg/dl (0.44-1.00); TOTAL PROTEIN 6.4 g/dl (6.1-8.1)
[2016-11-14 08:13] LABS: CALCIUM 9.8 mg/dl (8.4-10.2)
[2016-11-14] MEDS: METHYLPREDNISOLONE 40 MG INJ IV SCH (08:15)
[2016-11-14] MEDS: PIOGLITAZONE 30 MG TAB PO SCH (08:16)
[2016-11-14] MEDS: ATORVASTATIN 20 MG TAB PO SCH (08:16)
[2016-11-14] MEDS: LOSARTAN 50 MG TAB PO SCH (08:17)
[2016-11-14] MEDS: GABAPENTIN 400 MG CAP PO SCH (08:18)
[2016-11-14] MEDS: SERTRALINE 100 MG TAB PO SCH (08:18)
[2016-11-14] MEDS: DOCUSATE SODIUM 100 MG CAP PO SCH ×2 (08:21→21:00)
--- NOTE | 2016-11-14 09:57 | HP ---
DATE OF ADMISSION: 11/13/2016 PHYSICAL MEDICINE AND REHABILITATION HISTORY AND PHYSICAL/PHYSICIAN POST- ADMISSION ASSESSMENT DATE OF VISIT: 11/14/2016 REHABILITATION IMPAIRMENT GROUP: Nontraumatic spinal cord dysfunction in the setting of severe spondylosis C5-C6 with spinal stenosis causing cord compression with myelopathy, now status post anterior cervical decompression and fusion. CHIEF COMPLAINT: Impaired mobility, neck pain, right knee pain. HISTORY OF PRESENT ILLNESS: This is a 65-year-old Farsi speaking female (Hatch bench molder was used for this encounter) with past medical history significant for hypertension, diabetes mellitus type 2, depression, and history of chronic neck pain with radicular symptoms into the upper extremities with paraesthesias , weakness, and gait instability. The patient underwent an MRI of her C-spine, showing severe cervical C5-C6 spondylosis with spinal canal stenosis and evidence of cord compression with myelopathy. The patient was recommended surgery, and on 11/05/2016, the patient underwent C5 and C6 partial vertebrectomy, C5-C6 anterior cervical interbody arthrodesis, C5-C6 anterior cervical instrumentation, and anterior cervical interbody fusion. No reported intraoperative complications. Postoperatively, the patient was placed in a cervical brace. The patient's postoperative course was complicated by postoperative anemia and acute postoperative pain as well as right knee pain. X ray of right knee noted large joint effusion. The patient was started on steroids with IV Solu-Medrol with improvement in her pain. The patient did work with physical and occupational therapies and was noted to have an overall significant functional decline from her prior independent functional status. Currently, the patient is requiring moderate assistance for most of her ADLs. She is requiring minimal assistance for her transfers and gait, ambulating 100 feet with a standard walker. She is requiring moderate assistance for negotiating 3 stairs. Due to her overall significant functional decline and ongoing medical comorbidities, she was thought to benefit from acute inpatient rehabilitation. PAST MEDICAL AND SURGICAL HISTORY: As stated in history of present illness including history of hypertension, hyperlipidemia, diabetes mellitus, depression , carpal tunnel syndrome, and possible memory impairments per chart. Other surgeries include appendectomy, and cataract repair. FAMILY HISTORY: Reports noncontributory. SOCIAL HISTORY: The patient denies current toxic habits. She lives with her in an apartment. Reports there are approximately 24 steps to enter. For her prior level of function, she was completely independent for all functional mobility and self-care ADLs and did not use any assistive device for ambulation. ALLERGIES: NO KNOWN DRUG ALLERGIES. MEDICATIONS: On admission reviewed including 1. IV Solu-Medrol 2. Zoloft. 3. Actos. 4. Cozaar 5. Neurontin. 6. Lipitor. 7. Requip. 8. Namenda. 9. Protonix. 10. Metformin. 11. Tylenol as needed. 12. Morphine 1 mg IV q. 4 hours as needed. 13. [place] 10/325 mg, 1 tablet q. 4 hours as needed. 14. Nebulizers as needed. 15. MiraLax daily as needed. 16. Ambien as needed. 17. Zofran as needed. LABORATORIES AND IMAGING: Reviewed in electronic medical records. Admission labs today show WBC 5.1, hemoglobin 10.4, hematocrit 31.9, platelets 203. Sodium 141, potassium 3.6, BUN 25, creatinine 0.78, glucose 94, AST 18, ALT 35, alkaline phosphatase 71. REVIEW OF SYSTEMS: CONSTITUTIONAL: Denies any fevers or chills. No night sweats. EYES: Denies pain or discharge. No visual changes. EARS, NOSE, AND THROAT: Denies changes in hearing. No difficulty swallowing. RESPIRATORY: Denies shortness of breath, no cough. CARDIOVASCULAR: No chest pain, no palpitations. GENITOURINARY: Denies dysuria or hematuria. GASTROINTESTINAL: Denies abdominal pain, no nausea or vomiting. Reports moving her bowels. NEUROLOGICAL: Denies any new focal weakness or new paresthesias. MUSCULOSKELETAL: Reports moderate right knee pain and neck pain. SKIN: Denies any rashes or itching. PSYCHIATRIC: Denies anxiety. Has history significant for depression. REVIEW of systems is otherwise negative. PHYSICAL EXAMINATION: VITAL SIGNS: Blood pressure 113/67, heart rate 67, temperature 98.2 Fahrenheit , respiratory rate 18, O2 saturation 96% on room air. GENERAL: The patient is well-nourished, well-developed, awake, alert, in no acute distress. HEENT: Normocephalic, atraumatic. Mucous membranes moist. Sclera anicteric. Extraocular muscles appear intact. NECK: Cervical brace in place. RESPIRATORY: Symmetrical air entry bilaterally. Respirations are nonlabored. No crackles, no wheezing. CARDIOVASCULAR: Regular rate and rhythm, audible S1, S2. No distal edema. ABDOMEN: Soft, nontender. Bowel sounds present. No masses palpated. EXTREMITIES: Calves are soft and nontender. There is no distal edema. No cyanosis. SKIN: Cervical spine anterior surgical site is clean, dry, and intact with Steri-Strips in place. There is some blanchable redness noted in the left elbow and right elbow. PSYCHIATRIC: Affect and mood are appropriate. NEUROLOGIC/MUSCULOSKELETAL: The patient has good overall strength in the bilateral upper extremities and bilateral lower extremities. Reports decreased sensation in the fingertips, unchanged from prior to surgery. No increase in tone. Right knee range of motion limited by pain. Right knee with some increased warmth compared to left knee, no joint redness. IMPRESSION: 1. C5-C6 severe cervical spondylosis and spinal canal stenosis with cord compression causing myelopathy, now status post anterior cervical C5-6 decompression and fusion. 2. Impaired mobility, gait, and balance. 3. Impaired self-care activities of daily living. 4. Acute postoperative pain. 5. Hypertension. 6. Diabetes mellitus. 7. Depression. 8. History of Memory impairment. 9. Right knee pain with XR showing no acute osseous abnormality 10. Anemia 11. Hyperlipidemia 12. History of carpal tunnel syndrome PLAN: 1. The patient will be admitted for inpatient comprehensive interdisciplinary rehabilitation to address functional impairments and medical conditions as listed above while assessing equipment needs and compensatory strategies with coordinated interdisciplinary services that will include physical and occupational therapies and close monitoring and treatment with 24-hour rehabilitation nursing. The patient is anticipated to be able to tolerate 3 hours daily of physical and occupational therapies for at least 5 out of the 7 days per week. 2. Begin physical therapy for bed mobility, transfers, balance training, gait training, stairs training. 3. Begin occupational therapy for activities of daily living, functional transfers, adaptive equipment evaluation, and patient education. 4. Will have speech therapy perform full cognitive evaluation as patient with history of possible memory impairments, on namenda. 5. Rehabilitation nursing to provide the patient education regarding current medications as they relate to medical illness. Monitor blood sugars. Monitor for signs or symptoms of hyper or hypoglycemia. Monitor pain. Monitor bowel and bladder programs and administer such programs and reinforce with therapies. 6. Dr. Koo and associates to follow for management of medical comorbidities. 7. For hypertension, currently blood pressure appears controlled. Continue current antihypertensive medications per internal medicine. 8. For diabetes mellitus, continue to monitor blood sugars. Internal medicine medically managing. 9. For acute postoperative pain, currently on IV morphine and Neurontin and p.r.n. [place]. We will continue to closely monitor her pain levels and adjust the regimen further as needed. For the right knee pain, continue pain control, internal medicine to taper steroid. 10. We will closely monitor surgical site, monitor for signs or symptoms of infection. Continue surgical site care. 11. For history of depression, continue Zoloft. 12. For hyperlipidemia, continue Lipitor. 13. For anemia, continue to monitor hemoglobin and hematocrit. 14. For gastrointestinal prophylaxis, continue Protonix. 15. For deep venous thrombosis prophylaxis, on SCDs REHABILITATION GOALS: Improve bed mobility, transfers, gait, stairs, and self- care ADLs to at least supervision level. Estimated length of stay is approximately 10 to 14 days. Her case will be discussed at the weekly interdisciplinary conference. ANTICIPATED DISPOSITION: To home with . PROGNOSIS: At the current time, this inpatient hospital rehabilitation stay is medically necessary to achieve important health and functional goals. The patient requires frequent physician visits, 24-hour rehabilitation nursing, and a coordinated intensive rehabilitation program as described above to address complex medical, nursing and rehabilitation needs. The patient has a good prognosis for benefiting from this program and returning to home and community. REHABILITATION PHYSICIAN POST-ADMISSION ASSESSMENT REVIEW: I have had the opportunity to examine the patient within 24 hours of admission and have reviewed the preadmission assessment and findings are consistent with my examination and evaluation of the patient. I confirm that this patient is appropriate for admission and treatment in this inpatient rehabilitation hospital, needs intense interdisciplinary rehabilitation care, and is expected to achieve meaningful goals within a reasonable period of time that are consistent with the planned discharge disposition as noted above. Dictated By: SHELBI LANDIS MD, RA/LALA Conf#: [id number] DID#: [id number] JORGE
--- NOTE | 2016-11-14 12:17 | CONS ---
Date/Time of Note Date/Time of Note DATE: 11/14/16 TIME: 12:15 Assessment/Plan Assessment/Plan Additional Assessment/Plan 1) neck pain - s/p surgery 2) debilitation - continue acute rehab 3) diabetes - monitor blood sugar 4) hypertension - continue medications Consultation Date/Type/Reason Admit Date/Time Nov 13, 2016 at 15:46 Date of Consultation: Nov 14, 2016 Type of Consultation: Internal Medicine Reason for Consultation Medicine follow up Hx of Present Illness Patient with hypertension, diabetes, depression is in acute rehab after neck surgery for spondylosis. Patient tolerated the procedure and is now undergoing rehabilitation. Past Medical History Medical History: coronary artery disease, diabetes Social History Smoking Status: Former smoker Exam/Review of Systems Vital Signs Vitals Vital Signs Date Time Temp Pulse Resp B/P Pulse Ox O2 Delivery O2 Flow Rate FiO2 11/14/16 07:30 98.6 56 18 143/75 96 11/13/16 17:09 Room Air Intake and Output 11/13/16 11/13/16 11/14/16 15:00 23:00 07:00 Intake Total 240 ml Output Total 350 ml Balance -110 ml Exam Constitutional: well developed Head: atraumatic, normocephalic Neck: supple Respiratory: clear to auscultation Cardiovascular: regular rate and rhythm Gastrointestinal: non-tender, soft Extremities: normal pulses Results Result Diagram: 11/14/16 0602 11/14/16 0602 Results 24 hrs Laboratory Tests Test 11/13/16 17:24 11/13/16 21:06 11/14/16 06:02 11/14/16 07:40 Bedside Glucose 118 110 104 White Blood Count 5.1 # Red Blood Count 3.54 L Hemoglobin 10.4 L Hematocrit 31.9 L Mean Corpuscular Volume 90.1 Mean Corpuscular Hemoglobin 29.4 Mean Corpuscular Hemoglobin Concent 32.6 Red Cell Distribution Width 12.9 Platelet Count 203 # Mean Platelet Volume 12.7 H Neutrophils % 52.8 Lymphocytes % 32.4 Monocytes % 12.2 H Eosinophils % 1.6 Basophils % 0.6 Nucleated Red Blood Cells % 0.0 Neutrophils # 2.7 Lymphocytes # 1.7 Monocytes # 0.6 Eosinophils # 0.1 Basophils # 0.0 Nucleated Red Blood Cells # 0.0 Sodium Level 141 Potassium Level 3.6 Chloride Level 101 Carbon Dioxide Level 31 Anion Gap 13 Blood Urea Nitrogen 25 H Creatinine 0.78 Glucose Level 94 Calcium Level 9.8 Total Bilirubin 0.2 Direct Bilirubin 0.00 Indirect Bilirubin 0.2 Aspartate Amino Transf (AST/SGOT) 18 Alanine Aminotransferase (ALT/SGPT) 35 Alkaline Phosphatase 71 Total Protein 6.4 Albumin 3.2 L Globulin 3.20 Albumin/Globulin Ratio 1.00 Test 11/14/16 11:58 Bedside Glucose 154 Medications Medications Current Medications Ropinirole HCl (Requip) 0.25 mg HS PO Last administered on 11/13/16 21:15; Admin Dose 0.25 MG; Start 11/13/16 at 21:00 Sertraline HCl (Zoloft) 100 mg DAILY PO Last administered on 11/14/16 08:18; Admin Dose 100 MG; Start 11/14/16 at 09:00 Polyethylene Glycol (Miralax) 8.5 gm DAILY PRN PO CONSTIPATION; Start 11/13/16 at 16:30 Zolpidem Tartrate (Ambien) 5 mg HS PRN PO INSOMNIA; Start 11/13/16 at 16:30 Ondansetron HCl (Zofran Inj) 4 mg Q6H PRN IV NAUSEA AND/OR VOMITING; Start at 16:30 Pantoprazole (Protonix Tab) 40 mg BID@06,18 PO Last administered on 11/14/16 06:48; Admin Dose 40 MG; Start 11/13/16 at 18:00 Morphine Sulfate (morphine) 1 mg Q4H PRN IV severe pain; Start 11/13/16 at 17: 00 Pioglitazone HCl (Actos) 15 mg DAILY PO Last administered on 11/14/16 08:16; Admin Dose 15 MG; Start 11/14/16 at 09:00 Memantine (Namenda) 5 mg HS PO Last administered on 11/13/16 21:15; Admin Dose 5 MG; Start 11/13/16 at 21:00 Methylprednisolone Sodium Succinate (Solu-Medrol) 40 mg DAILY IV Last administered on 11/14/16 08:15; Admin Dose 40 MG; Start 11/14/16 at 09:00 Miscellaneous Information 1 ea NOTE XX ; Start 11/13/16 at 17:00 Glucose (Glutose) 15 gm Q15M PRN PO DECREASED GLUCOSE; Start 11/13/16 at 17:00 Glucose (Glutose) 22.5 gm Q15M PRN PO DECREASED GLUCOSE; Start 11/13/16 at 17: 00 Dextrose (D50w Syringe) 25 ml Q15M PRN IV DECREASED GLUCOSE; Start 11/13/16 at 17:00 Dextrose (D50w Syringe) 50 ml Q15M PRN IV DECREASED GLUCOSE; Start 11/13/16 at 17:00 Glucagon (Glucagen) 1 mg Q15M PRN IM DECREASED GLUCOSE; Start 11/13/16 at 17:00 Glucose (Glutose) 15 gm Q15M PRN BUCCAL DECREASED GLUCOSE; Start 11/13/16 at 17 :00 Losartan Potassium (Cozaar) 50 mg DAILY PO Last administered on 11/14/16 08:17 ; Admin Dose 50 MG; Start 11/14/16 at 09:00 Gabapentin (Neurontin) 400 mg DAILY PO Last administered on 11/14/16 08:18; Admin Dose 400 MG; Start 11/14/16 at 09:00 Docusate Sodium (Colace) 100 mg BID PO ; Start 11/13/16 at 21:00 Acetaminophen/ Hydrocodone Bitart ([place] (10/325)) 1 tab Q4H PRN PO PAIN; Start 11/13/16 at 17:00 Clonidine (Catapres) 0.1 mg Q6H PRN PO sbp>160; Start 11/13/16 at 17:00 Atorvastatin Calcium (Lipitor) 20 mg DAILY PO Last administered on 11/14/16 08 :16; Admin Dose 20 MG; Start 11/14/16 at 09:00 Diagnostic Test (Pha) (Accu-Chek) 1 ea 02 XX ; Start 11/14/16 at 02:00 Bisacodyl (Dulcolax) 5 mg BID PRN PO CONSTIPATION; Start 11/13/16 at 17:00 Acetaminophen (Tylenol Tab) 650 mg Q4H PRN PO PAIN AND OR ELEVATED TEMP; Start 11/13/16 at 17:30 Bisacodyl (Dulcolax Supp) 10 mg DAILY PRN [place] CONSTIPATION; Start 11/13/16 at 17 :30 Lactulose (Enulose) 20 gm DAILY PRN PO CONSTIPATION; Start 11/13/16 at 17:30 RITA VÁSQUEZ Nov 14, 2016 12:17
[2016-11-14 20:02] VITALS: BP 133/71; RESP 18
[2016-11-14] MEDS: ROPINIROLE 0.25 MG TAB PO SCH (21:17)
[2016-11-14] MEDS: MEMANTINE 5 MG TAB PO SCH (21:17)
[2016-11-15] MEDS: ACCUCHECK AT 2AM (Patients on SS coverage) XX SCH (02:00)
[2016-11-15] MEDS: PANTOPRAZOLE (EC) 40 MG TAB PO SCH ×2 (07:00→18:06)
[2016-11-15] MEDS: HYDROCHLOROTHIAZIDE 25 MG TAB PO SCH ×2 (07:00→18:07)
[2016-11-15] MEDS: Insulin NOVOLOG SS MILD Algorithm (SS with meals and bedtime) SC SCH ×4 (07:05→20:35)
[2016-11-15 07:30] VITALS: BP 158/90; RESP 18
[2016-11-15] MEDS: PIOGLITAZONE 30 MG TAB PO SCH (08:28)
[2016-11-15] MEDS: metFORMIN 500 MG TAB PO SCH ×2 (08:28→18:06)
[2016-11-15] MEDS: SERTRALINE 100 MG TAB PO SCH (08:29)
[2016-11-15] MEDS: GABAPENTIN 400 MG CAP PO SCH (08:29)
[2016-11-15] MEDS: DOCUSATE SODIUM 100 MG CAP PO SCH ×2 (08:29→20:37)
[2016-11-15] MEDS: LOSARTAN 50 MG TAB PO SCH (08:29)
[2016-11-15] MEDS: ATORVASTATIN 20 MG TAB PO SCH (08:29)
[2016-11-15] MEDS: HYDROCODONE/APAP (10/325) TAB PO PRN (08:29)
[2016-11-15] MEDS: METHYLPREDNISOLONE 40 MG INJ IV SCH (08:30)
--- NOTE | 2016-11-15 12:13 | CONS ---
Date/Time of Note Date/Time of Note DATE: 11/15/16 TIME: 12:12 Consult Date/Type/Reason Admit Date/Time Nov 13, 2016 at 15:46 Initial Consult Date 11/14/16 Type of Consultation: Internal Medicine Subjective Reports some neuropathic pain Objective Vital Signs Date Time Temp Pulse Resp B/P Pulse Ox O2 Delivery O2 Flow Rate FiO2 11/14/16 20:02 98.6 66 18 133/71 94 11/13/16 17:09 Room Air Intake and Output 11/14/16 11/14/16 11/15/16 14:59 22:59 06:59 Intake Total 1620 ml 750 ml Output Total 600 ml Balance 1620 ml 150 ml INTERDISCIPLINARY TEAM CONFERENCE BOWEL- Cont BLADDER-Cont SKIN- intact OT- DRESSING-mod BATHING-mod TOILETING-mod PT- BED MOBILITY-cga TRANSFERS-cga/min AMBULATION-cga 120 feet A/P- Interdisciplinary team conference held today. Please see interdisciplinary sheet. Working toward d.c. on 11/22 with post discharge follow up of physical therapy, occupational therapy. Results/Medications Result Diagram: 11/14/16 0602 11/14/16 06 Results 24 hrs Laboratory Tests Test 11/14/16 17:00 11/14/16 20:55 11/15/16 07:47 11/15/16 11:57 Bedside Glucose 134 116 104 179 Medications Current Medications Ropinirole HCl (Requip) 0.25 mg HS PO Last administered on 11/14/16 21:17; Admin Dose 0.25 MG; Start 11/13/16 at 21:00 Sertraline HCl (Zoloft) 100 mg DAILY PO Last administered on 11/15/16 08:29; Admin Dose 100 MG; Start 11/14/16 at 09:00 Polyethylene Glycol (Miralax) 8.5 gm DAILY PRN PO CONSTIPATION; Start 11/13/16 at 16:30 Zolpidem Tartrate (Ambien) 5 mg HS PRN PO INSOMNIA; Start 11/13/16 at 16:30 Ondansetron HCl (Zofran Inj) 4 mg Q6H PRN IV NAUSEA AND/OR VOMITING; Start at 16:30 Pantoprazole (Protonix Tab) 40 mg BID@06,18 PO Last administered on 11/15/16 07 :00; Admin Dose 40 MG; Start 11/13/16 at 18:00 Morphine Sulfate (morphine) 1 mg Q4H PRN IV severe pain; Start 11/13/16 at 17: 00 Pioglitazone HCl (Actos) 15 mg DAILY PO Last administered on 11/15/16 08:28; Admin Dose 15 MG; Start 11/14/16 at 09:00 Memantine (Namenda) 5 mg HS PO Last administered on 11/14/16 21:17; Admin Dose 5 MG; Start 11/13/16 at 21:00 Methylprednisolone Sodium Succinate (Solu-Medrol) 40 mg DAILY IV Last administered on 11/15/16 08:30; Admin Dose 40 MG; Start 11/14/16 at 09:00 Miscellaneous Information 1 ea NOTE XX ; Start 11/13/16 at 17:00 Glucose (Glutose) 15 gm Q15M PRN PO DECREASED GLUCOSE; Start 11/13/16 at 17:00 Glucose (Glutose) 22.5 gm Q15M PRN PO DECREASED GLUCOSE; Start 11/13/16 at 17: 00 Dextrose (D50w Syringe) 25 ml Q15M PRN IV DECREASED GLUCOSE; Start 11/13/16 at 17:00 Dextrose (D50w Syringe) 50 ml Q15M PRN IV DECREASED GLUCOSE; Start 11/13/16 at 17:00 Glucagon (Glucagen) 1 mg Q15M PRN IM DECREASED GLUCOSE; Start 11/13/16 at 17:00 Glucose (Glutose) 15 gm Q15M PRN BUCCAL DECREASED GLUCOSE; Start 11/13/16 at 17 :00 Losartan Potassium (Cozaar) 50 mg DAILY PO Last administered on 11/15/16 08:29 ; Admin Dose 50 MG; Start 11/14/16 at 09:00 Docusate Sodium (Colace) 100 mg BID PO Last administered on 11/15/16 08:29; Admin Dose 100 MG; Start 11/13/16 at 21:00 Acetaminophen/ Hydrocodone Bitart ([place] (10/325)) 1 tab Q4H PRN PO PAIN Last administered on 11/15/16 08:29; Admin Dose 1 TAB; Start 11/13/16 at 17:00 Clonidine (Catapres) 0.1 mg Q6H PRN PO sbp>160; Start 11/13/16 at 17:00 Atorvastatin Calcium (Lipitor) 20 mg DAILY PO Last administered on 11/15/16 08: 29; Admin Dose 20 MG; Start 11/14/16 at 09:00 Diagnostic Test (Pha) (Accu-Chek) 1 ea 02 XX ; Start 11/14/16 at 02:00 Bisacodyl (Dulcolax) 5 mg BID PRN PO CONSTIPATION Last administered on 21:22; Admin Dose 5 MG; Start 11/13/16 at 17:00 Acetaminophen (Tylenol Tab) 650 mg Q4H PRN PO PAIN AND OR ELEVATED TEMP; Start 11/13/16 at 17:30 Bisacodyl (Dulcolax Supp) 10 mg DAILY PRN [place] CONSTIPATION; Start 11/13/16 at 17 :30 Lactulose (Enulose) 20 gm DAILY PRN PO CONSTIPATION; Start 11/13/16 at 17:30 Gabapentin (Neurontin) 300 mg TID PO ; Start 11/15/16 at 13:00 FRANCE GAO MD November 15, 2016 12:13
[2016-11-15] MEDS: GABAPENTIN 300 MG CAP PO SCH ×2 (13:16→20:37)
[2016-11-15 19:53] VITALS: BP 104/69; RESP 18
[2016-11-15] MEDS: ZOLPIDEM 5 MG TAB PO PRN (20:36)
[2016-11-15] MEDS: ROPINIROLE 0.25 MG TAB PO SCH (20:37)
[2016-11-15] MEDS: MEMANTINE 5 MG TAB PO SCH (20:37)
--- NOTE | 2016-11-16 00:57 | PN ---
DATE: 11/15/2016 LOCATION: Acute rehabilitation. SUBJECTIVE: Follow up on hypertension, diabetes, depression, cervical myelopathy status post C5 thr ough C6 partial vertebrectomy and diskectomy. The patient's postoperative pain continues to improve . No reported chest pain or shortness of breath. No reported fever or chills. No reported nausea, vomiting, or diarrhea. No reported bleeding from any site. The patient remains awake, alert, and responsive. PHYSICAL EXAMINATION: GENERAL: The patient is conscious, awake, alert. VITAL SIGNS: Temperature 98.4, pulse 65, respirations 18, blood pressure 158/90, O2 saturation 96% on room air. HEENT: No eye discharge or redness. Extraocular movement intact. Oropharynx clear. CHEST: Fairly clear. CARDIOVASCULAR: S1, S2 normal. No murmur, gallop, or rub. ABDOMEN: Soft, nondistended, nontender. There is no palpable mass. No pulsatile mass. EXTREMITIES: No leg edema. Pedal pulses palpable. SKIN: Without acute rash. NEUROLOGIC: The patient is awake, alert, follows simple commands. No new focal neuro deficit. LABORATORY DATA: WBC 5.1, hemoglobin 10.4, platelets 203. Chemistry: Sodium 141, potassium 3.6, B UN 25, creatinine 0.7, glucose 94. AST 18, ALT 35, alkaline phosphatase 71. Albumin 3.2. IMPRESSION: 1. Cervical myelopathy due to cervical spondylosis status post surgery. The patient also has neuro pathic pain for which patient is on Neurontin. 2. Depression. Continue Zoloft. 3. Diabetes mellitus. Continue Actos, as well as metformin and sliding scale insulin. Blood sugar s are reasonably controlled. 4. Hypertension. Blood pressure readings reviewed. Continue Cozaar and hydrochlorothiazide. 5. Dyslipidemia. Continue Lipitor. Liver enzymes normal. 6. Continue PT, OT as tolerated. 7. We will continue to taper steroids. I will reduce the dose to 20 mg every day. Dictated By: KARLENE BUI/NTS Conf#: [id number] DID#: [id number] CC: FRANCE GAO MD;*EndCC*
[2016-11-16] MEDS: ACCUCHECK AT 2AM (Patients on SS coverage) XX SCH (02:37)
[2016-11-16] MEDS: PANTOPRAZOLE (EC) 40 MG TAB PO SCH ×2 (06:58→17:50)
[2016-11-16] MEDS: HYDROCHLOROTHIAZIDE 25 MG TAB PO SCH ×2 (07:01→17:50)
[2016-11-16] MEDS: Insulin NOVOLOG SS MILD Algorithm (SS with meals and bedtime) SC SCH ×4 (07:05→20:21)
[2016-11-16 07:39] VITALS: BP 164/91; RESP 18
[2016-11-16] MEDS: METHYLPREDNISOLONE 40 MG INJ IV SCH (08:21)
[2016-11-16] MEDS: SERTRALINE 100 MG TAB PO SCH (08:22)
[2016-11-16] MEDS: ATORVASTATIN 20 MG TAB PO SCH (08:22)
[2016-11-16] MEDS: metFORMIN 500 MG TAB PO SCH ×2 (08:22→17:49)
[2016-11-16] MEDS: PIOGLITAZONE 30 MG TAB PO SCH (08:22)
[2016-11-16] MEDS: GABAPENTIN 300 MG CAP PO SCH ×3 (08:22→20:15)
[2016-11-16] MEDS: DOCUSATE SODIUM 100 MG CAP PO SCH ×2 (08:22→20:15)
[2016-11-16] MEDS: HYDROCODONE/APAP (10/325) TAB PO PRN (08:23)
[2016-11-16] MEDS: LOSARTAN 50 MG TAB PO SCH (08:23)
--- NOTE | 2016-11-16 12:06 | CONS ---
Date/Time of Note Date/Time of Note DATE: 11/16/16 TIME: 12:06 Consult Date/Type/Reason Admit Date/Time Nov 13, 2016 at 15:46 Initial Consult Date 11/14/16 Type of Consultation: Internal Medicine Subjective Pain improving Objective pulm-cta abd-soft sba ambulation Vital Signs Date Time Temp Pulse Resp B/P Pulse Ox O2 Delivery O2 Flow Rate FiO2 11/16/16 07:39 98.4 65 18 164/91 96 11/13/16 17:09 Room Air Intake and Output 11/15/16 11/15/16 11/16/16 15:00 23:00 07:00 Intake Total 970 ml 450 ml Output Total 550 ml Balance 420 ml 450 ml Results/Medications Result Diagram: 11/14/1602 11/14/16 0602 Results 24 hrs Laboratory Tests Test 11/15/16 17:30 11/15/16 20:05 11/16/16 02:35 11/16/16 07:59 Bedside Glucose 171 196 141 109 Medications Current Medications Ropinirole HCl (Requip) 0.25 mg HS PO Last administered on 11/15/16 20:37; Admin Dose 0.25 MG; Start 11/13/16 at 21:00 Sertraline HCl (Zoloft) 100 mg DAILY PO Last administered on 11/16/16 08:22; Admin Dose 100 MG; Start 11/14/16 at 09:00 Polyethylene Glycol (Miralax) 8.5 gm DAILY PRN PO CONSTIPATION; Start 11/13/16 at 16:30 Zolpidem Tartrate (Ambien) 5 mg HS PRN PO INSOMNIA Last administered on 20:36; Admin Dose 5 MG; Start 11/13/16 at 16:30 Ondansetron HCl (Zofran Inj) 4 mg Q6H PRN IV NAUSEA AND/OR VOMITING; Start at 16:30 Pantoprazole (Protonix Tab) 40 mg BID@,18 PO Last administered on 11/16/16 06 :58; Admin Dose 40 MG; Start 11/13/16 at 18:00 Morphine Sulfate (morphine) 1 mg Q4H PRN IV severe pain; Start 11/13/16 at 17: 00 Pioglitazone HCl (Actos) 15 mg DAILY PO Last administered on 11/16/16 08:22; Admin Dose 15 MG; Start 11/14/16 at 09:00 Memantine (Namenda) 5 mg HS PO Last administered on 11/15/16 20:37; Admin Dose 5 MG; Start 11/13/16 at 21:00 Miscellaneous Information 1 ea NOTE XX ; Start 11/13/16 at 17:00 Glucose (Glutose) 15 gm Q15M PRN PO DECREASED GLUCOSE; Start 11/13/16 at 17:00 Glucose (Glutose) 22.5 gm Q15M PRN PO DECREASED GLUCOSE; Start 11/13/16 at 17: 00 Dextrose (D50w Syringe) 25 ml Q15M PRN IV DECREASED GLUCOSE; Start 11/13/16 at 17:00 Dextrose (D50w Syringe) 50 ml Q15M PRN IV DECREASED GLUCOSE; Start 11/13/16 at 17:00 Glucagon (Glucagen) 1 mg Q15M PRN IM DECREASED GLUCOSE; Start 11/13/16 at 17:00 Glucose (Glutose) 15 gm Q15M PRN BUCCAL DECREASED GLUCOSE; Start 11/13/16 at 17 :00 Losartan Potassium (Cozaar) 50 mg DAILY PO Last administered on 11/16/16 08:23 ; Admin Dose 50 MG; Start 11/14/16 at 09:00 Docusate Sodium (Colace) 100 mg BID PO Last administered on 11/16/16 08:22; Admin Dose 100 MG; Start 11/13/16 at 21:00 Acetaminophen/ Hydrocodone Bitart ([place] (10/325)) 1 tab Q4H PRN PO PAIN Last administered on 11/16/16 08:23; Admin Dose 1 TAB; Start 11/13/16 at 17:00 Clonidine (Catapres) 0.1 mg Q6H PRN PO sbp>160; Start 11/13/16 at 17:00 Atorvastatin Calcium (Lipitor) 20 mg DAILY PO Last administered on 11/16/16 08: 22; Admin Dose 20 MG; Start 11/14/16 at 09:00 Diagnostic Test (Pha) (Accu-Chek) 1 ea 02 XX Last administered on 11/16/16 02: 37; Admin Dose 1 EA; Start 11/14/16 at 02:00 Bisacodyl (Dulcolax) 5 mg BID PRN PO CONSTIPATION Last administered on 21:22; Admin Dose 5 MG; Start 11/13/16 at 17:00 Acetaminophen (Tylenol Tab) 650 mg Q4H PRN PO PAIN AND OR ELEVATED TEMP; Start 11/13/16 at 17:30 Bisacodyl (Dulcolax Supp) 10 mg DAILY PRN [place] CONSTIPATION; Start 11/13/16 at 17 :30 Lactulose (Enulose) 20 gm DAILY PRN PO CONSTIPATION; Start 11/13/16 at 17:30 Gabapentin (Neurontin) 300 mg TID PO Last administered on 11/16/16 08:22; Admin Dose 300 MG; Start 11/15/16 at 13:00 Methylprednisolone Sodium Succinate (Solu-Medrol) 20 mg DAILY IV Last administered on 11/16/16 08:21; Admin Dose 20 MG; Start 11/16/16 at 09:00 Assessment/Plan Additional Assessment/Plan rehab- Cervical SS with myelopathy-s.p decomp/fusion Excellent progress, continue treatment Pain- neurontin for neuropathic pain HTN-stable DM2 CTS hyperlipidemia FRANCE GAO MD November 16, 2016 12:06
[2016-11-16] MEDS: LACTULOSE 30ML CUP PO PRN (12:33)
--- NOTE | 2016-11-16 18:06 | PN ---
Date/Time of Note Date/Time of Note DATE: 11/16/16 TIME: 18:02 Assessment/Plan VTE Prophylaxis VTE Prophylaxis Intervention: SCD's Lines/Catheters IV Catheter Type (from Nrs): [facility] Urinary Cath still in place: No Assessment/Plan Chief Complaint/Hosp Course Assessment/Plan 1. Cervical 5 to cervical 6 severe spondylosis with the cervical myelopathy and cord compression, status post cervical 5 to cervical 6 partial vertebrectomy with diskectomy and interbody fusion anterior plating. Taper steroids. Continue physical therapy. 2. Hypertension. Continue Cozaar. 3. Dyslipidemia. Continue statin. 4. Diabetes. Continue Actos and NovoLog per sliding scale. 5. Depression and possible memory impairment. Continue Zoloft. Further recommendations based on clinical course. Plan of care discussed with Dr. Koo. Problems: Subjective 24 Hr Interval Summary Free Text/Dictation Patient is is sitting in bed eating dinner, pain is well controlled, patient able to work with physical therapy, cervical collar on, incision is intact with Steri-Strips. Exam/Review of Systems Vital Signs Vitals Vital Signs Date Time Temp Pulse Resp B/P Pulse Ox O2 Delivery O2 Flow Rate FiO2 11/16/16 07:39 98.4 65 18 164/91 96 11/13/16 17:09 Room Air Intake and Output 11/15/16 11/15/16 11/16/16 15:00 23:00 07:00 Intake Total 970 ml 450 ml Output Total 550 ml Balance 420 ml 450 ml Exam Constitutional: alert, oriented Psych: no complaints Head: atraumatic, normocephalic Eyes: nl conjunctiva ENMT: nl external ears & nose Neck: other (Status post cervical surgery, cervical collar on), supple Respiratory: clear to auscultation, normal air movement Cardiovascular: nl pulses, regular rate and rhythm Gastrointestinal: non-tender, soft Musculoskeletal: nl extremities to inspection, nl gait and stance Extremities: normal pulses Neurological: [employer] 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 Results Result Diagram: 11/14/16 0602 11/14/16 0602 Results 24 hrs Laboratory Tests Test 11/15/16 20:05 11/16/16 02:35 11/16/16 07:59 11/16/16 12:08 Bedside Glucose 196 141 109 184 Test 11/16/16 17:10 Bedside Glucose 184 Medications Medications Current Medications Ropinirole HCl (Requip) 0.25 mg HS PO Last administered on 11/15/16 20:37; Admin Dose 0.25 MG; Start 11/13/16 at 21:00 Sertraline HCl (Zoloft) 100 mg DAILY PO Last administered on 11/16/16 08:22; Admin Dose 100 MG; Start 11/14/16 at 09:00 Polyethylene Glycol (Miralax) 8.5 gm DAILY PRN PO CONSTIPATION; Start 11/13/16 at 16:30 Zolpidem Tartrate (Ambien) 5 mg HS PRN PO INSOMNIA Last administered on 20:36; Admin Dose 5 MG; Start 11/13/16 at 16:30 Ondansetron HCl (Zofran Inj) 4 mg Q6H PRN IV NAUSEA AND/OR VOMITING; Start at 16:30 Pantoprazole (Protonix Tab) 40 mg BID@06,18 PO Last administered on 11/16/16 17 :50; Admin Dose 40 MG; Start 11/13/16 at 18:00 Morphine Sulfate (morphine) 1 mg Q4H PRN IV severe pain; Start 11/13/16 at 17: 00 Pioglitazone HCl (Actos) 15 mg DAILY PO Last administered on 11/16/16 08:22; Admin Dose 15 MG; Start 11/14/16 at 09:00 Memantine (Namenda) 5 mg HS PO Last administered on 11/15/16 20:37; Admin Dose 5 MG; Start 11/13/16 at 21:00 Miscellaneous Information 1 ea NOTE XX ; Start 11/13/16 at 17:00 Glucose (Glutose) 15 gm Q15M PRN PO DECREASED GLUCOSE; Start 11/13/16 at 17:00 Glucose (Glutose) 22.5 gm Q15M PRN PO DECREASED GLUCOSE; Start 11/13/16 at 17: 00 Dextrose (D50w Syringe) 25 ml Q15M PRN IV DECREASED GLUCOSE; Start 11/13/16 at 17:00 Dextrose (D50w Syringe) 50 ml Q15M PRN IV DECREASED GLUCOSE; Start 11/13/16 at 17:00 Glucagon (Glucagen) 1 mg Q15M PRN IM DECREASED GLUCOSE; Start 11/13/16 at 17:00 Glucose (Glutose) 15 gm Q15M PRN BUCCAL DECREASED GLUCOSE; Start 11/13/16 at 17 :00 Losartan Potassium (Cozaar) 50 mg DAILY PO Last administered on 11/16/16 08:23 ; Admin Dose 50 MG; Start 11/14/16 at 09:00 Docusate Sodium (Colace) 100 mg BID PO Last administered on 11/16/16 08:22; Admin Dose 100 MG; Start 11/13/16 at 21:00 Acetaminophen/ Hydrocodone Bitart ([place] (10/325)) 1 tab Q4H PRN PO PAIN Last administered on 11/16/16 08:23; Admin Dose 1 TAB; Start 11/13/16 at 17:00 Clonidine (Catapres) 0.1 mg Q6H PRN PO sbp>160; Start 11/13/16 at 17:00 Atorvastatin Calcium (Lipitor) 20 mg DAILY PO Last administered on 11/16/16 08: 22; Admin Dose 20 MG; Start 11/14/16 at 09:00 Diagnostic Test (Pha) (Accu-Chek) 1 ea 02 XX Last administered on 11/16/16 02: 37; Admin Dose 1 EA; Start 11/14/16 at 02:00 Bisacodyl (Dulcolax) 5 mg BID PRN PO CONSTIPATION Last administered on 21:22; Admin Dose 5 MG; Start 11/13/16 at 17:00 Acetaminophen (Tylenol Tab) 650 mg Q4H PRN PO PAIN AND OR ELEVATED TEMP; Start 11/13/16 at 17:30 Bisacodyl (Dulcolax Supp) 10 mg DAILY PRN [place] CONSTIPATION; Start 11/13/16 at 17 :30 Lactulose (Enulose) 20 gm DAILY PRN PO CONSTIPATION Last administered on 12:33; Admin Dose 20 GM; Start 11/13/16 at 17:30 Gabapentin (Neurontin) 300 mg TID PO Last administered on 11/16/16 12:33; Admin Dose 300 MG; Start 11/15/16 at 13:00 Methylprednisolone Sodium Succinate (Solu-Medrol) 20 mg DAILY IV Last administered on 11/16/16 08:21; Admin Dose 20 MG; Start 11/16/16 at 09:00 ERI CHAIDEZ November 16, 2016 18:06
[2016-11-16 19:47] VITALS: BP 105/70; RESP 18
[2016-11-16] MEDS: ROPINIROLE 0.25 MG TAB PO SCH (20:15)
[2016-11-16] MEDS: MEMANTINE 5 MG TAB PO SCH (20:15)
[2016-11-16] MEDS: ZOLPIDEM 5 MG TAB PO PRN (22:39)
[2016-11-16] MEDS: ACETAMINOPHEN 325 MG TAB PO PRN (22:42)
[2016-11-17] MEDS: ACCUCHECK AT 2AM (Patients on SS coverage) XX SCH (02:00)
[2016-11-17] MEDS: PANTOPRAZOLE (EC) 40 MG TAB PO SCH ×2 (06:05→17:43)
[2016-11-17] MEDS: HYDROCHLOROTHIAZIDE 25 MG TAB PO SCH ×2 (06:08→17:43)
[2016-11-17] MEDS: Insulin NOVOLOG SS MILD Algorithm (SS with meals and bedtime) SC SCH ×4 (07:05→21:00)
[2016-11-17 07:41] VITALS: BP 126/88; RESP 18
[2016-11-17] MEDS: GABAPENTIN 300 MG CAP PO SCH ×3 (09:09→20:25)
[2016-11-17] MEDS: DOCUSATE SODIUM 100 MG CAP PO SCH ×2 (09:09→20:25)
[2016-11-17] MEDS: LOSARTAN 50 MG TAB PO SCH (09:09)
[2016-11-17] MEDS: metFORMIN 500 MG TAB PO SCH ×2 (09:09→17:47)
[2016-11-17] MEDS: SERTRALINE 100 MG TAB PO SCH (09:09)
[2016-11-17] MEDS: METHYLPREDNISOLONE 40 MG INJ IV SCH (09:10)
[2016-11-17] MEDS: PIOGLITAZONE 30 MG TAB PO SCH (09:10)
[2016-11-17] MEDS: ATORVASTATIN 20 MG TAB PO SCH (09:10)
--- NOTE | 2016-11-17 09:53 | CONS ---
Date/Time of Note Date/Time of Note DATE: 11/17/16 TIME: 09:53 Consult Date/Type/Reason Admit Date/Time Nov 13, 2016 at 15:46 Initial Consult Date 11/14/16 Type of Consultation: Internal Medicine Subjective Comfortable Objective pulm-cta sba ambulation Vital Signs Date Time Temp Pulse Resp B/P Pulse Ox O2 Delivery O2 Flow Rate FiO2 11/17/16 07:41 98.2 61 18 126/88 97 11/13/16 17:09 Room Air Intake and Output 11/16/16 11/16/16 11/17/16 15:00 23:00 07:00 Intake Total 1240 ml 620 ml 750 ml Balance 1240 ml 620 ml 750 ml Results/Medications Result Diagram: 11/14/1660111/14/16 06 Results 24 hrs Laboratory Tests Test 11/16/16 12:08 11/16/16 17:10 11/16/16 20:18 11/17/16 01:51 Bedside Glucose 184 184 186 125 Test 11/17/16 07:55 Bedside Glucose 102 Medications Current Medications Ropinirole HCl (Requip) 0.25 mg HS PO Last administered on 11/16/16 20:15; Admin Dose 0.25 MG; Start 11/13/16 at 21:00 Sertraline HCl (Zoloft) 100 mg DAILY PO Last administered on 11/17/16 09:09; Admin Dose 100 MG; Start 11/14/16 at 09:00 Polyethylene Glycol (Miralax) 8.5 gm DAILY PRN PO CONSTIPATION; Start 11/13/16 at 16:30 Zolpidem Tartrate (Ambien) 5 mg HS PRN PO INSOMNIA Last administered on 22:39; Admin Dose 5 MG; Start 11/13/16 at 16:30 Ondansetron HCl (Zofran Inj) 4 mg Q6H PRN IV NAUSEA AND/OR VOMITING; Start at 16:30 Pantoprazole (Protonix Tab) 40 mg BID@06,18 PO Last administered on 11/17/16 06 :05; Admin Dose 40 MG; Start 11/13/16 at 18:00 Morphine Sulfate (morphine) 1 mg Q4H PRN IV severe pain; Start 11/13/16 at 17: 00 Pioglitazone HCl (Actos) 15 mg DAILY PO Last administered on 11/17/16 09:10; Admin Dose 15 MG; Start 11/14/16 at 09:00 Memantine (Namenda) 5 mg HS PO Last administered on 11/16/16 20:15; Admin Dose 5 MG; Start 11/13/16 at 21:00 Miscellaneous Information 1 ea NOTE XX ; Start 11/13/16 at 17:00 Glucose (Glutose) 15 gm Q15M PRN PO DECREASED GLUCOSE; Start 11/13/16 at 17:00 Glucose (Glutose) 22.5 gm Q15M PRN PO DECREASED GLUCOSE; Start 11/13/16 at 17: 00 Dextrose (D50w Syringe) 25 ml Q15M PRN IV DECREASED GLUCOSE; Start 11/13/16 at 17:00 Dextrose (D50w Syringe) 50 ml Q15M PRN IV DECREASED GLUCOSE; Start 11/13/16 at 17:00 Glucagon (Glucagen) 1 mg Q15M PRN IM DECREASED GLUCOSE; Start 11/13/16 at 17:00 Glucose (Glutose) 15 gm Q15M PRN BUCCAL DECREASED GLUCOSE; Start 11/13/16 at 17 :00 Losartan Potassium (Cozaar) 50 mg DAILY PO Last administered on 11/17/16 09:09 ; Admin Dose 50 MG; Start 11/14/16 at 09:00 Docusate Sodium (Colace) 100 mg BID PO Last administered on 11/17/16 09:09; Admin Dose 100 MG; Start 11/13/16 at 21:00 Acetaminophen/ Hydrocodone Bitart ([place] (10/325)) 1 tab Q4H PRN PO PAIN Last administered on 11/16/16 08:23; Admin Dose 1 TAB; Start 11/13/16 at 17:00 Clonidine (Catapres) 0.1 mg Q6H PRN PO sbp>160; Start 11/13/16 at 17:00 Atorvastatin Calcium (Lipitor) 20 mg DAILY PO Last administered on 11/17/16 09: 10; Admin Dose 20 MG; Start 11/14/16 at 09:00 Diagnostic Test (Pha) (Accu-Chek) 1 ea 02 XX Last administered on 11/16/16 02: 37; Admin Dose 1 EA; Start 11/14/16 at 02:00 Bisacodyl (Dulcolax) 5 mg BID PRN PO CONSTIPATION Last administered on 21:22; Admin Dose 5 MG; Start 11/13/16 at 17:00 Acetaminophen (Tylenol Tab) 650 mg Q4H PRN PO PAIN AND OR ELEVATED TEMP Last administered on 11/16/16 22:42; Admin Dose 650 MG; Start 11/13/16 at 17:30 Bisacodyl (Dulcolax Supp) 10 mg DAILY PRN [place] CONSTIPATION; Start 11/13/16 at 17 :30 Lactulose (Enulose) 20 gm DAILY PRN PO CONSTIPATION Last administered on 12:33; Admin Dose 20 GM; Start 11/13/16 at 17:30 Gabapentin (Neurontin) 300 mg TID PO Last administered on 11/17/16 09:09; Admin Dose 300 MG; Start 11/15/16 at 13:00 Methylprednisolone Sodium Succinate (Solu-Medrol) 20 mg DAILY IV Last administered on 11/17/16 09:10; Admin Dose 20 MG; Start 11/16/16 at 09:00 Assessment/Plan Additional Assessment/Plan rehab- Cervical SS with myelopathy-s.p decomp/fusion continue rehab treatment program Pain- improved HTN-stable DM2 CTS hyperlipidemia FRANCE GAO MD November 17, 2016 09:53
--- NOTE | 2016-11-17 14:12 | PN ---
Date/Time of Note Date/Time of Note DATE: 11/17/16 TIME: 14:11 Assessment/Plan VTE Prophylaxis VTE Prophylaxis Intervention: SCD's Lines/Catheters IV C[facility] Type (from [facility] Urinary Cath still in place: No Assessment/Plan Chief Complaint/Hosp Course Assessment/Plan 1. Cervical 5 to cervical 6 severe spondylosis with the cervical myelopathy and cord compression, status post cervical 5 to cervical 6 partial vertebrectomy with diskectomy and interbody fusion anterior plating. Taper steroids. Continue physical therapy. 2. Hypertension. Continue Cozaar. 3. Dyslipidemia. Continue statin. 4. Diabetes. Continue Actos and NovoLog per sliding scale. 5. Depression and possible memory impairment. Continue Zoloft. Further recommendations based on clinical course. Plan of care discussed with Dr. Koo. Problems: Subjective 24 Hr Interval Summary Free Text/Dictation Patient was able to work with physical therapy, tolerates it well. Exam/Review of Systems Vital Signs Vitals Vital Signs Date Time Temp Pulse Resp B/P Pulse Ox O2 Delivery O2 Flow Rate FiO2 11/17/16 07:41 98.2 61 18 126/88 97 11/13/16 17:09 Room Air Intake and Output 11/16/16 11/16/16 11/17/16 15:00 23:00 07:00 Intake Total 1240 ml 620 ml 750 ml Balance 1240 ml 620 ml 750 ml Exam Constitutional: alert, oriented Psych: no complaints Head: atraumatic, normocephalic Eyes: nl conjunctiva ENMT: nl external ears & nose Neck: other (Status post cervical surgery, cervical collar on), supple Respiratory: clear to auscultation, normal air movement Cardiovascular: nl pulses, regular rate and rhythm Gastrointestinal: non-tender, soft Musculoskeletal: nl extremities to inspection, nl gait and stance Extremities: normal pulses 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 Results Result Diagram: 11/14/16 0602 11/14/16 0602 Results 24 hrs Laboratory Tests Test 11/16/16 17:10 11/16/16 20:18 11/17/16 01:51 11/17/16 07:55 Bedside Glucose 184 186 125 102 Test 11/17/16 12:05 Bedside Glucose 118 Medications Medications Current Medications Ropinirole HCl (Requip) 0.25 mg HS PO Last administered on 11/16/16t 20:15; Admin Dose 0.25 MG; Start 11/13/16 at 21:00 Sertraline HCl (Zoloft) 100 mg DAILY PO Last administered on 11/17/16 09:09; Admin Dose 100 MG; Start 11/14/16 at 09:00 Polyethylene Glycol (Miralax) 8.5 gm DAILY PRN PO CONSTIPATION; Start 11/13/16 at 16:30 Zolpidem Tartrate (Ambien) 5 mg HS PRN PO INSOMNIA Last administered on 22:39; Admin Dose 5 MG; Start 11/13/16 at 16:30 Ondansetron HCl (Zofran Inj) 4 mg Q6H PRN IV NAUSEA AND/OR VOMITING; Start at 16:30 Pantoprazole (Protonix Tab) 40 mg BID@06,18 PO Last administered on 11/17/16 06 :05; Admin Dose 40 MG; Start 11/13/16 at 18:00 Morphine Sulfate (morphine) 1 mg Q4H PRN IV severe pain; Start 11/13/16 at 17: 00 Pioglitazone HCl (Actos) 15 mg DAILY PO Last administered on 11/17/16 09:10; Admin Dose 15 MG; Start 11/14/16 at 09:00 Memantine (Namenda) 5 mg HS PO Last administered on 11/16/16 20:15; Admin Dose 5 MG; Start 11/13/16 at 21:00 Miscellaneous Information 1 ea NOTE XX ; Start 11/13/16 at 17:00 Glucose (Glutose) 15 gm Q15M PRN PO DECREASED GLUCOSE; Start 11/13/16 at 17:00 Glucose (Glutose) 22.5 gm Q15M PRN PO DECREASED GLUCOSE; Start 11/13/16 at 17: 00 Dextrose (D50w Syringe) 25 ml Q15M PRN IV DECREASED GLUCOSE; Start 11/13/16 at 17:00 Dextrose (D50w Syringe) 50 ml Q15M PRN IV DECREASED GLUCOSE; Start 11/13/16 at 17:00 Glucagon (Glucagen) 1 mg Q15M PRN IM DECREASED GLUCOSE; Start 11/13/16 at 17:00 Glucose (Glutose) 15 gm Q15M PRN BUCCAL DECREASED GLUCOSE; Start 11/13/16 at 17 :00 Losartan Potassium (Cozaar) 50 mg DAILY PO Last administered on 11/17/16 09:09 ; Admin Dose 50 MG; Start 11/14/16 at 09:00 Docusate Sodium (Colace) 100 mg BID PO Last administered on 11/17/16 09:09; Admin Dose 100 MG; Start 11/13/16 at 21:00 Acetaminophen/ Hydrocodone Bitart ([place] (10/325)) 1 tab Q4H PRN PO PAIN Last administered on 11/16/16 08:23; Admin Dose 1 TAB; Start 11/13/16 at 17:00 Clonidine (Catapres) 0.1 mg Q6H PRN PO sbp>160; Start 11/13/16 at 17:00 Atorvastatin Calcium (Lipitor) 20 mg DAILY PO Last administered on 11/17/16 09: 10; Admin Dose 20 MG; Start 11/14/16 at 09:00 Diagnostic Test (Pha) (Accu-Chek) 1 ea 02 XX Last administered on 11/16/16 02: 37; Admin Dose 1 EA; Start 11/14/16 at 02:00 Bisacodyl (Dulcolax) 5 mg BID PRN PO CONSTIPATION Last administered on 21:22; Admin Dose 5 MG; Start 11/13/16 at 17:00 Acetaminophen (Tylenol Tab) 650 mg Q4H PRN PO PAIN AND OR ELEVATED TEMP Last administered on 11/16/16 22:42; Admin Dose 650 MG; Start 11/13/16 at 17:30 Bisacodyl (Dulcolax Supp) 10 mg DAILY PRN [place] CONSTIPATION; Start 11/13/16 at 17 :30 Lactulose (Enulose) 20 gm DAILY PRN PO CONSTIPATION Last administered on 12:33; Admin Dose 20 GM; Start 11/13/16 at 17:30 Gabapentin (Neurontin) 300 mg TID PO Last administered on 11/17/16 12:58; Admin Dose 300 MG; Start 11/15/16 at 13:00 Methylprednisolone Sodium Succinate (Solu-Medrol) 20 mg DAILY IV Last administered on 11/17/16 09:10; Admin Dose 20 MG; Start 11/16/16 at 09:00 ERI CHAIDEZ November 17, 2016 14:12
[2016-11-17] MEDS: LACTULOSE 30ML CUP PO PRN (17:44)
[2016-11-17 20:00] VITALS: BP 119/75; RESP 18
[2016-11-17] MEDS: ROPINIROLE 0.25 MG TAB PO SCH (20:25)
[2016-11-17] MEDS: ACETAMINOPHEN 325 MG TAB PO PRN (20:25)
[2016-11-17] MEDS: MEMANTINE 5 MG TAB PO SCH (20:25)
[2016-11-17] MEDS: ZOLPIDEM 5 MG TAB PO PRN (22:27)
[2016-11-18] MEDS: ACCUCHECK AT 2AM (Patients on SS coverage) XX SCH (02:00)
[2016-11-18] MEDS: PANTOPRAZOLE (EC) 40 MG TAB PO SCH ×2 (05:51→18:08)
[2016-11-18 05:52] VITALS: BP 148/80; PULSE 62; RESP 18
[2016-11-18] MEDS: HYDROCHLOROTHIAZIDE 25 MG TAB PO SCH ×2 (05:52→18:07)
[2016-11-18] MEDS: Insulin NOVOLOG SS MILD Algorithm (SS with meals and bedtime) SC SCH ×4 (07:05→21:00)
[2016-11-18 07:30] VITALS: BP_SYST 156; BP_DIAS 66; BP_DIAS 85; RESP 18
[2016-11-18] MEDS: GABAPENTIN 300 MG CAP PO SCH ×3 (08:28→20:44)
[2016-11-18] MEDS: SERTRALINE 100 MG TAB PO SCH (08:28)
[2016-11-18] MEDS: DOCUSATE SODIUM 100 MG CAP PO SCH ×2 (08:28→20:44)
[2016-11-18] MEDS: METHYLPREDNISOLONE 40 MG INJ IV SCH (08:29)
[2016-11-18] MEDS: PIOGLITAZONE 30 MG TAB PO SCH (08:29)
[2016-11-18] MEDS: ATORVASTATIN 20 MG TAB PO SCH (08:29)
[2016-11-18] MEDS: metFORMIN 500 MG TAB PO SCH ×2 (08:29→18:07)
[2016-11-18] MEDS: LOSARTAN 50 MG TAB PO SCH (08:53)
--- NOTE | 2016-11-18 12:37 | CONS ---
Date/Time of Note Date/Time of Note DATE: 11/18/16 TIME: 12:36 Consult Date/Type/Reason Admit Date/Time Nov 13, 2016 at 15:46 Initial Consult Date 11/14/16 Type of Consultation: Internal Medicine Subjective Feeling better Objective pulm-cta abd-soft sba ambulation Vital Signs Date Time Temp Pulse Resp B/P Pulse Ox O2 Delivery O2 Flow Rate FiO2 11/18/16 07:30 98.1 64 18 156/85 96 Intake and Output 11/17/16 11/17/16 11/18/16 15:00 23:00 07:00 Intake Total 1240 ml 620 ml Balance 1240 ml 620 ml Exam rehab- Cervical SS with myelopathy-s.p decomp/fusion Overall improved, continue treatment plan Pain- neurontin for neuropathic pain HTN-stable DM2 CTS hyperlipidemia Results/Medications Result Diagram: 11/14/16 0602 11/14/16 0602 Results 24 hrs Laboratory Tests Test 11/17/16 17:08 11/17/16 20:23 11/18/16 08:19 Bedside Glucose 178 80 88 Medications Current Medications Ropinirole HCl (Requip) 0.25 mg HS PO Last administered on 11/17/16 20:25; Admin Dose 0.25 MG; Start 11/13/16 at 21:00 Sertraline HCl (Zoloft) 100 mg DAILY PO Last administered on 11/18/16 08:28; Admin Dose 100 MG; Start 11/14/16 at 09:00 Polyethylene Glycol (Miralax) 8.5 gm DAILY PRN PO CONSTIPATION; Start 11/13/16 at 16:30 Zolpidem Tartrate (Ambien) 5 mg HS PRN PO INSOMNIA Last administered on 22:27; Admin Dose 5 MG; Start 11/13/16 at 16:30 Ondansetron HCl (Zofran Inj) 4 mg Q6H PRN IV NAUSEA AND/OR VOMITING; Start at 16:30 Pantoprazole (Protonix Tab) 40 mg BID@06,18 PO Last administered on 11/18/16 05 :51; Admin Dose 40 MG; Start 11/13/16 at 18:00 Morphine Sulfate (morphine) 1 mg Q4H PRN IV severe pain; Start 11/13/16 at 17: 00 Pioglitazone HCl (Actos) 15 mg DAILY PO Last administered on 11/18/16 08:29; Admin Dose 15 MG; Start 11/14/16 at 09:00 Memantine (Namenda) 5 mg HS PO Last administered on 11/17/16 20:25; Admin Dose 5 MG; Start 11/13/16 at 21:00 Miscellaneous Information 1 ea NOTE XX ; Start 11/13/16 at 17:00 Glucose (Glutose) 15 gm Q15M PRN PO DECREASED GLUCOSE; Start 11/13/16 at 17:00 Glucose (Glutose) 22.5 gm Q15M PRN PO DECREASED GLUCOSE; Start 11/13/16 at 17: 00 Dextrose (D50w Syringe) 25 ml Q15M PRN IV DECREASED GLUCOSE; Start 11/13/16 at 17:00 Dextrose (D50w Syringe) 50 ml Q15M PRN IV DECREASED GLUCOSE; Start 11/13/16 at 17:00 Glucagon (Glucagen) 1 mg Q15M PRN IM DECREASED GLUCOSE; Start 11/13/16 at 17:00 Glucose (Glutose) 15 gm Q15M PRN BUCCAL DECREASED GLUCOSE; Start 11/13/16 at 17 :00 Losartan Potassium (Cozaar) 50 mg DAILY PO Last administered on 11/18/16 08:53 ; Admin Dose 50 MG; Start 11/14/16 at 09:00 Docusate Sodium (Colace) 100 mg BID PO Last administered on 11/18/16 08:28; Admin Dose 100 MG; Start 11/13/16 at 21:00 Acetaminophen/ Hydrocodone Bitart ([place] (10/325)) 1 tab Q4H PRN PO PAIN Last administered on 11/16/16 08:23; Admin Dose 1 TAB; Start 11/13/16 at 17:00 Clonidine (Catapres) 0.1 mg Q6H PRN PO sbp>160; Start 11/13/16 at 17:00 Atorvastatin Calcium (Lipitor) 20 mg DAILY PO Last administered on 11/18/16 08: 29; Admin Dose 20 MG; Start 11/14/16 at 09:00 Diagnostic Test (Pha) (Accu-Chek) 1 ea 02 XX Last administered on 11/16/16 02: 37; Admin Dose 1 EA; Start 11/14/16 at 02:00 Bisacodyl (Dulcolax) 5 mg BID PRN PO CONSTIPATION Last administered on 21:22; Admin Dose 5 MG; Start 11/13/16 at 17:00 Acetaminophen (Tylenol Tab) 650 mg Q4H PRN PO PAIN AND OR ELEVATED TEMP Last administered on 11/17/16 20:25; Admin Dose 650 MG; Start 11/13/16 at 17:30 Bisacodyl (Dulcolax Supp) 10 mg DAILY PRN [place] CONSTIPATION; Start 11/13/16 at 17 :30 Lactulose (Enulose) 20 gm DAILY PRN PO CONSTIPATION Last administered on 17:44; Admin Dose 20 GM; Start 11/13/16 at 17:30 Gabapentin (Neurontin) 300 mg TID PO Last administered on 11/18/16 08:28; Admin Dose 300 MG; Start 11/15/16 at 13:00 Methylprednisolone Sodium Succinate (Solu-Medrol) 20 mg DAILY IV Last administered on 11/18/16 08:29; Admin Dose 20 MG; Start 11/16/16 at 09:00 FRANCE GAO MD November 18, 2016 12:37
--- NOTE | 2016-11-18 16:03 | RADRPT ---
PROCEDURE: Video-fluoroscopy swallowing study. CLINICAL INDICATION: Dysphagia. TECHNIQUE: Fluoroscopic guided video swallowing study was done in conjunction with the speech ther apist. The study was confined to the oral, pharyngeal, and cervical phases of the swallowing mechani sm. 1.4 minutes of fluoroscopy time was used. COMPARISON: No prior study is available for comparison. FINDINGS: There is no evidence of aspiration during the exam. There may be upper esophageal dysmotility. IMPRESSION: 1. Possible upper esophageal dysmotility. No aspiration during swallowing. 2. Please refer to the speech therapist's recommendations for future feedings. RPTAT: QQ .Segun Stone MD, MD Date Time Electronically viewed and signed by .Segun Stone MD, MD on 11/18/2016 16:02 .R/
--- NOTE | 2016-11-18 17:58 | PN ---
Date/Time of Note Date/Time of Note DATE: 11/18/16 TIME: 17:57 Assessment/Plan VTE Prophylaxis VTE Prophylaxis Intervention: SCD's Lines/Catheters [facility] Sal[facility] Urinary Cath still in place: No Assessment/Plan Chief Complaint/Hosp Course Assessment/Plan 1. Cervical 5 to cervical 6 severe spondylosis with the cervical myelopathy and cord compression, status post cervical 5 to cervical 6 partial vertebrectomy with diskectomy and interbody fusion anterior plating. Taper steroids. Continue physical therapy. 2. Hypertension. Continue Cozaar. 3. Dyslipidemia. Continue statin. 4. Diabetes. Continue Actos and NovoLog per sliding scale. 5. Depression and possible memory impairment. Continue Zoloft. Further recommendations based on clinical course. Plan of care discussed with Dr. Koo. Problems: Subjective 24 Hr Interval Summary Free Text/Dictation No acute events overnight, patient continues to work with physical therapy. Exam/Review of Systems Vital Signs Vitals Vital Signs Date Time Temp Pulse Resp B/P Pulse Ox O2 Delivery O2 Flow Rate FiO2 11/18/16 07:30 98.1 64 18 156/85 96 Intake and Output 11/17/16 11/17/16 11/18/16 15:00 23:00 07:00 Intake Total 1240 ml 620 ml Balance 1240 ml 620 ml Exam Constitutional: alert, oriented Psych: no complaints Head: atraumatic, normocephalic Eyes: nl conjunctiva ENMT: nl external ears & nose Neck: other (Status post cervical surgery, cervical collar on), supple Respiratory: clear to auscultation, normal air movement Cardiovascular: nl pulses, regular rate and rhythm Gastrointestinal: non-tender, soft Musculoskeletal: nl extremities to inspection, nl gait and stance Extremities: normal pulses Neurological: 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 WORKER 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 Results Result Diagram: 11/14/16 0602 11/14/16 0602 Results 24 hrs Laboratory Tests Test 11/17/16 20:23 11/18/16 08:19 11/18/16 13:25 11/18/16 17:40 Bedside Glucose 80 88 204 188 Medications Medications Current Medications Ropinirole HCl (Requip) 0.25 mg HS PO Last administered on 11/17/16t 20:25; Admin Dose 0.25 MG; Start 11/13/16 at 21:00 Sertraline HCl (Zoloft) 100 mg DAILY PO Last administered on 11/18/16 08:28; Admin Dose 100 MG; Start 11/14/16 at 09:00 Polyethylene Glycol (Miralax) 8.5 gm DAILY PRN PO CONSTIPATION; Start 11/13/16 at 16:30 Zolpidem Tartrate (Ambien) 5 mg HS PRN PO INSOMNIA Last administered on 22:27; Admin Dose 5 MG; Start 11/13/16 at 16:30 Ondansetron HCl (Zofran Inj) 4 mg Q6H PRN IV NAUSEA AND/OR VOMITING; Start at 16:30 Pantoprazole (Protonix Tab) 40 mg BID@06,18 PO Last administered on 11/18/16 05 :51; Admin Dose 40 MG; Start 11/13/16 at 18:00 Morphine Sulfate (morphine) 1 mg Q4H PRN IV severe pain; Start 11/13/16 at 17: 00 Pioglitazone HCl (Actos) 15 mg DAILY PO Last administered on 11/18/16 08:29; Admin Dose 15 MG; Start 11/14/16 at 09:00 Memantine (Namenda) 5 mg HS PO Last administered on 11/17/16 20:25; Admin Dose 5 MG; Start 11/13/16 at 21:00 Miscellaneous Information 1 ea NOTE XX ; Start 11/13/16 at 17:00 Glucose (Glutose) 15 gm Q15M PRN PO DECREASED GLUCOSE; Start 11/13/16 at 17:00 Glucose (Glutose) 22.5 gm Q15M PRN PO DECREASED GLUCOSE; Start 11/13/16 at 17: 00 Dextrose (D50w Syringe) 25 ml Q15M PRN IV DECREASED GLUCOSE; Start 11/13/16 at 17:00 Dextrose (D50w Syringe) 50 ml Q15M PRN IV DECREASED GLUCOSE; Start 11/13/16 at 17:00 Glucagon (Glucagen) 1 mg Q15M PRN IM DECREASED GLUCOSE; Start 11/13/16 at 17:00 Glucose (Glutose) 15 gm Q15M PRN BUCCAL DECREASED GLUCOSE; Start 11/13/16 at 17 :00 Losartan Potassium (Cozaar) 50 mg DAILY PO Last administered on 11/18/16 08:53 ; Admin Dose 50 MG; Start 11/14/16 at 09:00 Docusate Sodium (Colace) 100 mg BID PO Last administered on 11/18/16 08:28; Admin Dose 100 MG; Start 11/13/16 at 21:00 Acetaminophen/ Hydrocodone Bitart ([place] (10/325)) 1 tab Q4H PRN PO PAIN Last administered on 11/16/16 08:23; Admin Dose 1 TAB; Start 11/13/16 at 17:00 Clonidine (Catapres) 0.1 mg Q6H PRN PO sbp>160; Start 11/13/16 at 17:00 Atorvastatin Calcium (Lipitor) 20 mg DAILY PO Last administered on 11/18/16 08: 29; Admin Dose 20 MG; Start 11/14/16 at 09:00 Diagnostic Test (Pha) (Accu-Chek) 1 ea 02 XX Last administered on 11/16/16 02: 37; Admin Dose 1 EA; Start 11/14/16 at 02:00 Bisacodyl (Dulcolax) 5 mg BID PRN PO CONSTIPATION Last administered on 21:22; Admin Dose 5 MG; Start 11/13/16 at 17:00 Acetaminophen (Tylenol Tab) 650 mg Q4H PRN PO PAIN AND OR ELEVATED TEMP Last administered on 11/17/16 20:25; Admin Dose 650 MG; Start 11/13/16 at 17:30 Bisacodyl (Dulcolax Supp) 10 mg DAILY PRN [place] CONSTIPATION; Start 11/13/16 at 17 :30 Lactulose (Enulose) 20 gm DAILY PRN PO CONSTIPATION Last administered on 17:44; Admin Dose 20 GM; Start 11/13/16 at 17:30 Gabapentin (Neurontin) 300 mg TID PO Last administered on 11/18/16 13:45; Admin Dose 300 MG; Start 11/15/16 at 13:00 Methylprednisolone Sodium Succinate (Solu-Medrol) 20 mg DAILY IV Last administered on 11/18/16 08:29; Admin Dose 20 MG; Start 11/16/16 at 09:00 ERI CHAIDEZ November 18, 2016 17:58
[2016-11-18 20:00] VITALS: BP 117/70; RESP 18
[2016-11-18] MEDS: ROPINIROLE 0.25 MG TAB PO SCH (20:44)
[2016-11-18] MEDS: MEMANTINE 5 MG TAB PO SCH (20:46)
[2016-11-18] MEDS: LACTULOSE 30ML CUP PO PRN (21:40)
[2016-11-18] MEDS: ZOLPIDEM 5 MG TAB PO PRN (21:47)
[2016-11-19] MEDS: ACCUCHECK AT 2AM (Patients on SS coverage) XX SCH (02:00)
[2016-11-19] MEDS: PANTOPRAZOLE (EC) 40 MG TAB PO SCH ×2 (06:20→18:26)
[2016-11-19 06:23] VITALS: BP 139/91; PULSE 69; RESP 18
[2016-11-19] MEDS: HYDROCHLOROTHIAZIDE 25 MG TAB PO SCH ×2 (06:23→18:26)
[2016-11-19] MEDS: Insulin NOVOLOG SS MILD Algorithm (SS with meals and bedtime) SC SCH ×4 (07:05→21:00)
[2016-11-19 07:38] VITALS: BP 116/76; RESP 18
[2016-11-19] MEDS: METHYLPREDNISOLONE 40 MG INJ IV SCH (08:06)
[2016-11-19] MEDS: PIOGLITAZONE 30 MG TAB PO SCH (08:06)
[2016-11-19] MEDS: metFORMIN 500 MG TAB PO SCH ×2 (08:06→18:25)
[2016-11-19] MEDS: DOCUSATE SODIUM 100 MG CAP PO SCH ×2 (08:57→21:00)
[2016-11-19] MEDS: ATORVASTATIN 20 MG TAB PO SCH (08:57)
[2016-11-19] MEDS: GABAPENTIN 300 MG CAP PO SCH ×3 (08:57→21:32)
[2016-11-19] MEDS: SERTRALINE 100 MG TAB PO SCH (08:57)
[2016-11-19] MEDS: LOSARTAN 50 MG TAB PO SCH (08:58)
--- NOTE | 2016-11-19 11:13 | CONS ---
Date/Time of Note Date/Time of Note DATE: 11/19/16 TIME: 11:12 Consult Date/Type/Reason Admit Date/Time Nov 13, 2016 at 15:46 Initial Consult Date 11/14/16 Type of Consultation: Internal Medicine Subjective In good spirts, she is very pleased with her progress Objective pulm-cta abd-soft s ambulation 200 fett Vital Signs Date Time Temp Pulse Resp B/P Pulse Ox O2 Delivery O2 Flow Rate FiO2 11/19/16 07:38 98.4 61 18 116/76 96 Intake and Output 11/18/16 11/18/16 11/19/16 14:59 22:59 06:59 Intake Total 820 ml Output Total 2 ml Balance -2 ml 820 ml Results/Medications Results 24 hrs Laboratory Tests Test 11/18/16 13:25 11/18/16 17:40 11/18/16 20:29 11/19/16 08:01 Bedside Glucose 204 188 131 97 Medications Current Medications Ropinirole HCl (Requip) 0.25 mg HS PO Last administered on 11/18/16 20:44; Admin Dose 0.25 MG; Start 11/13/16 at 21:00 Sertraline HCl (Zoloft) 100 mg DAILY PO Last administered on 11/19/16 08:57; Admin Dose 100 MG; Start 11/14/16 at 09:00 Polyethylene Glycol (Miralax) 8.5 gm DAILY PRN PO CONSTIPATION; Start 11/13/16 at 16:30 Zolpidem Tartrate (Ambien) 5 mg HS PRN PO INSOMNIA Last administered on 21:47; Admin Dose 5 MG; Start 11/13/16 at 16:30 Ondansetron HCl (Zofran Inj) 4 mg Q6H PRN IV NAUSEA AND/OR VOMITING; Start at 16:30 Pantoprazole (Protonix Tab) 40 mg BID@,18 PO Last administered on 11/19/16 06 :20; Admin Dose 40 MG; Start 11/13/16 at 18:00 Morphine Sulfate (morphine) 1 mg Q4H PRN IV severe pain; Start 11/13/16 at 17: 00 Pioglitazone HCl (Actos) 15 mg DAILY PO Last administered on 11/19/16 08:06; Admin Dose 15 MG; Start 11/14/16 at 09:00 Memantine (Namenda) 5 mg HS PO Last administered on 11/18/16 20:46; Admin Dose 5 MG; Start 11/13/16 at 21:00 Miscellaneous Information 1 ea NOTE XX ; Start 11/13/16 at 17:00 Glucose (Glutose) 15 gm Q15M PRN PO DECREASED GLUCOSE; Start 11/13/16 at 17:00 Glucose (Glutose) 22.5 gm Q15M PRN PO DECREASED GLUCOSE; Start 11/13/16 at 17: 00 Dextrose (D50w Syringe) 25 ml Q15M PRN IV DECREASED GLUCOSE; Start 11/13/16 at 17:00 Dextrose (D50w Syringe) 50 ml Q15M PRN IV DECREASED GLUCOSE; Start 11/13/16 at 17:00 Glucagon (Glucagen) 1 mg Q15M PRN IM DECREASED GLUCOSE; Start 11/13/16 at 17:00 Glucose (Glutose) 15 gm Q15M PRN BUCCAL DECREASED GLUCOSE; Start 11/13/16 at 17 :00 Losartan Potassium (Cozaar) 50 mg DAILY PO Last administered on 11/19/16 08:58 ; Admin Dose 50 MG; Start 11/14/16 at 09:00 Docusate Sodium (Colace) 100 mg BID PO Last administered on 11/19/16 08:57; Admin Dose 100 MG; Start 11/13/16 at 21:00 Acetaminophen/ Hydrocodone Bitart ([place] (10/325)) 1 tab Q4H PRN PO PAIN Last administered on 11/16/16 08:23; Admin Dose 1 TAB; Start 11/13/16 at 17:00 Clonidine (Catapres) 0.1 mg Q6H PRN PO sbp>160; Start 11/13/16 at 17:00 Atorvastatin Calcium (Lipitor) 20 mg DAILY PO Last administered on 11/19/16 08: 57; Admin Dose 20 MG; Start 11/14/16 at 09:00 Diagnostic Test (Pha) (Accu-Chek) 1 ea 02 XX Last administered on 11/16/16 02: 37; Admin Dose 1 EA; Start 11/14/16 at 02:00 Bisacodyl (Dulcolax) 5 mg BID PRN PO CONSTIPATION Last administered on 4/30/ 17at 21:22; Admin Dose 5 MG; Start 11/13/16 at 17:00 Acetaminophen (Tylenol Tab) 650 mg Q4H PRN PO PAIN AND OR ELEVATED TEMP Last administered on 11/17/16 20:25; Admin Dose 650 MG; Start 11/13/16 at 17:30 Bisacodyl (Dulcolax Supp) 10 mg DAILY PRN [place] CONSTIPATION; Start 11/13/16 at 17 :30 Lactulose (Enulose) 20 gm DAILY PRN PO CONSTIPATION Last administered on 21:40; Admin Dose 20 GM; Start 11/13/16 at 17:30 Gabapentin (Neurontin) 300 mg TID PO Last administered on 11/19/16 08:57; Admin Dose 300 MG; Start 11/15/16 at 13:00 Methylprednisolone Sodium Succinate (Solu-Medrol) 20 mg DAILY IV Last administered on 11/19/16 08:06; Admin Dose 20 MG; Start 11/16/16 at 09:00 Assessment/Plan Additional Assessment/Plan rehab- Cervical SS with myelopathy-s.p decomp/fusion Excellent progress, anticipate home Tuesday Pain- controlled HTN-stable DM2 CTS hyperlipidemia FRANCE GAO MD November 19, 2016 11:13
--- NOTE | 2016-11-19 12:08 | PN ---
Date/Time of Note Date/Time of Note DATE: 11/19/16 TIME: 12:07 Assessment/Plan VTE Prophylaxis VTE Prophylaxis Intervention: SCD's Lines/Catheters IV [facility]from [facility] Saline Lock Urinary Cath still in place: No Assessment/Plan Chief Complaint/Hosp Course Assessment/Plan 1. Cervical 5 to cervical 6 severe spondylosis with the cervical myelopathy and cord compression, status post cervical 5 to cervical 6 partial vertebrectomy with diskectomy and interbody fusion anterior plating. Taper steroids. Continue physical therapy. 2. Hypertension. Continue Cozaar. 3. Dyslipidemia. Continue statin. 4. Diabetes. Continue Actos and NovoLog per sliding scale. 5. Depression and possible memory impairment. Continue Zoloft. Further recommendations based on clinical course. Plan of care discussed with Dr. Koo. Problems: Subjective 24 Hr Interval Summary Free Text/Dictation Patient cervical collar changed to soft collar per orthopedic surgery, patient progress with physical therapy, no acute events. Exam/Review of Systems Vital Signs Vitals Vital Signs Date Time Temp Pulse Resp B/P Pulse Ox O2 Delivery O2 Flow Rate FiO2 11/19/16 07:38 98.4 61 18 116/76 96 Intake and Output 11/18/16 11/18/16 11/19/16 15:00 23:00 07:00 Intake Total 820 ml Output Total 2 ml Balance -2 ml 820 ml Exam Constitutional: alert, oriented Psych: no complaints Head: atraumatic, normocephalic Eyes: nl conjunctiva ENMT: nl external ears & nose Neck: other (Status post cervical surgery, cervical collar on), supple Respiratory: clear to auscultation, normal air movement Cardiovascular: nl pulses, regular rate and rhythm Gastrointestinal: non-tender, soft Musculoskeletal: nl extremities to inspection, nl gait and stance Extremities: normal pulses Neurological: [employer] 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 Results Results 24 hrs Laboratory Tests Test 11/18/16 13:25 11/18/16 17:40 11/18/16 20:29 11/19/16 08:01 Bedside Glucose 204 188 131 97 Test 11/19/16 11:59 Bedside Glucose 126 Medications Medications Current Medications Ropinirole HCl (Requip) 0.25 mg HS PO Last administered on 11/18/16 20:44; Admin Dose 0.25 MG; Start 11/13/16 at 21:00 Sertraline HCl (Zoloft) 100 mg DAILY PO Last administered on 11/19/16 08:57; Admin Dose 100 MG; Start 11/14/16 at 09:00 Polyethylene Glycol (Miralax) 8.5 gm DAILY PRN PO CONSTIPATION; Start 11/13/16 at 16:30 Zolpidem Tartrate (Ambien) 5 mg HS PRN PO INSOMNIA Last administered on 21:47; Admin Dose 5 MG; Start 11/13/16 at 16:30 Ondansetron HCl (Zofran Inj) 4 mg Q6H PRN IV NAUSEA AND/OR VOMITING; Start at 16:30 Pantoprazole (Protonix Tab) 40 mg BID@,18 PO Last administered on 11/19/16 06 :20; Admin Dose 40 MG; Start 11/13/16 at 18:00 Morphine Sulfate (morphine) 1 mg Q4H PRN IV severe pain; Start 11/13/16 at 17: 00 Pioglitazone HCl (Actos) 15 mg DAILY PO Last administered on 11/19/16 08:06; Admin Dose 15 MG; Start 11/14/16 at 09:00 Memantine (Namenda) 5 mg HS PO Last administered on 11/18/16 20:46; Admin Dose 5 MG; Start 11/13/16 at 21:00 Miscellaneous Information 1 ea NOTE XX ; Start 11/13/16 at 17:00 Glucose (Glutose) 15 gm Q15M PRN PO DECREASED GLUCOSE; Start 11/13/16 at 17:00 Glucose (Glutose) 22.5 gm Q15M PRN PO DECREASED GLUCOSE; Start 11/13/16 at 17: 00 Dextrose (D50w Syringe) 25 ml Q15M PRN IV DECREASED GLUCOSE; Start 11/13/16 at 17:00 Dextrose (D50w Syringe) 50 ml Q15M PRN IV DECREASED GLUCOSE; Start 11/13/16 at 17:00 Glucagon (Glucagen) 1 mg Q15M PRN IM DECREASED GLUCOSE; Start 11/13/16 at 17:00 Glucose (Glutose) 15 gm Q15M PRN BUCCAL DECREASED GLUCOSE; Start 11/13/16 at 17 :00 Losartan Potassium (Cozaar) 50 mg DAILY PO Last administered on 11/19/16 08:58 ; Admin Dose 50 MG; Start 11/14/16 at 09:00 Docusate Sodium (Colace) 100 mg BID PO Last administered on 11/19/16 08:57; Admin Dose 100 MG; Start 11/13/16 at 21:00 Acetaminophen/ Hydrocodone Bitart ([place] (10/325)) 1 tab Q4H PRN PO PAIN Last administered on 11/16/16 08:23; Admin Dose 1 TAB; Start 11/13/16 at 17:00 Clonidine (Catapres) 0.1 mg Q6H PRN PO sbp>160; Start 11/13/16 at 17:00 Atorvastatin Calcium (Lipitor) 20 mg DAILY PO Last administered on 11/19/16 08: 57; Admin Dose 20 MG; Start 11/14/16 at 09:00 Diagnostic Test (Pha) (Accu-Chek) 1 ea 02 XX Last administered on 11/16/16 02: 37; Admin Dose 1 EA; Start 11/14/16 at 02:00 Bisacodyl (Dulcolax) 5 mg BID PRN PO CONSTIPATION Last administered on 21:22; Admin Dose 5 MG; Start 11/13/16 at 17:00 Acetaminophen (Tylenol Tab) 650 mg Q4H PRN PO PAIN AND OR ELEVATED TEMP Last administered on 11/17/16 20:25; Admin Dose 650 MG; Start 11/13/16 at 17:30 Bisacodyl (Dulcolax Supp) 10 mg DAILY PRN [place] CONSTIPATION; Start 11/13/16 at 17 :30 Lactulose (Enulose) 20 gm DAILY PRN PO CONSTIPATION Last administered on 21:40; Admin Dose 20 GM; Start 11/13/16 at 17:30 Gabapentin (Neurontin) 300 mg TID PO Last administered on 11/19/16 08:57; Admin Dose 300 MG; Start 11/15/16 at 13:00 Methylprednisolone Sodium Succinate (Solu-Medrol) 20 mg DAILY IV Last administered on 11/19/16 08:06; Admin Dose 20 MG; Start 11/16/16 at 09:00 ERI CHAIDEZ November 19, 2016 12:08
[2016-11-19 20:00] VITALS: BP_SYST 113; BP_SYST 142; BP_DIAS 63; BP_DIAS 70; RESP 18
[2016-11-19] MEDS: MEMANTINE 5 MG TAB PO SCH (21:32)
[2016-11-19] MEDS: ROPINIROLE 0.25 MG TAB PO SCH (21:33)
[2016-11-19] MEDS: LACTULOSE 30ML CUP PO PRN (21:37)
[2016-11-19] MEDS: ZOLPIDEM 5 MG TAB PO PRN (21:42)
[2016-11-20] MEDS: ACCUCHECK AT 2AM (Patients on SS coverage) XX SCH (02:00)
[2016-11-20] MEDS: HYDROCHLOROTHIAZIDE 25 MG TAB PO SCH ×2 (06:23→18:02)
[2016-11-20] MEDS: PANTOPRAZOLE (EC) 40 MG TAB PO SCH ×2 (06:23→18:01)
[2016-11-20 06:27] VITALS: BP 119/75; PULSE 84
[2016-11-20] MEDS: Insulin NOVOLOG SS MILD Algorithm (SS with meals and bedtime) SC SCH ×4 (07:05→20:26)
[2016-11-20 07:40] VITALS: BP 148/91; RESP 20
--- NOTE | 2016-11-20 09:29 | CONS ---
Date/Time of Note Date/Time of Note DATE: 11/20/16 TIME: 09:28 Consult Date/Type/Reason Admit Date/Time Nov 13, 2016 at 15:46 Initial Consult Date 11/14/16 Type of Consultation: Internal Medicine Subjective Patient feeling good Objective pulm-cta abd-soft sba ambulation Vital Signs Date Time Temp Pulse Resp B/P Pulse Ox O2 Delivery O2 Flow Rate FiO2 11/20/16 07:40 98.0 81 20 148/91 94 Intake and Output 11/19/16 11/19/16 11/20/16 15:00 23:00 07:00 Intake Total 1240 ml 620 ml 300 ml Output Total 600 ml Balance 1240 ml 620 ml -300 ml Results/Medications Results 24 hrs Laboratory Tests Test 11/19/16 11:59 11/19/16 17:09 11/19/16 21:38 11/20/16 08:12 Bedside Glucose 126 94 145 101 Medications Current Medications Ropinirole HCl (Requip) 0.25 mg HS PO Last administered on 11/19/16 21:33; Admin Dose 0.25 MG; Start 11/13/16 at 21:00 Sertraline HCl (Zoloft) 100 mg DAILY PO Last administered on 11/19/16 08:57; Admin Dose 100 MG; Start 11/14/16 at 09:00 Polyethylene Glycol (Miralax) 8.5 gm DAILY PRN PO CONSTIPATION; Start 11/13/16 at 16:30 Zolpidem Tartrate (Ambien) 5 mg HS PRN PO INSOMNIA Last administered on 21:42; Admin Dose 5 MG; Start 11/13/16 at 16:30 Ondansetron HCl (Zofran Inj) 4 mg Q6H PRN IV NAUSEA AND/OR VOMITING; Start at 16:30 Pantoprazole (Protonix Tab) 40 mg BID@06,18 PO Last administered on 11/20/16 06 :23; Admin Dose 40 MG; Start 11/13/16 at 18:00 Morphine Sulfate (morphine) 1 mg Q4H PRN IV severe pain; Start 11/13/16 at 17: 00 Pioglitazone HCl (Actos) 15 mg DAILY PO Last administered on 11/19/16 08:06; Admin Dose 15 MG; Start 11/14/16 at 09:00 Memantine (Namenda) 5 mg HS PO Last administered on 11/19/16 21:32; Admin Dose 5 MG; Start 11/13/16 at 21:00 Miscellaneous Information 1 ea NOTE XX ; Start 11/13/16 at 17:00 Glucose (Glutose) 15 gm Q15M PRN PO DECREASED GLUCOSE; Start 11/13/16 at 17:00 Glucose (Glutose) 22.5 gm Q15M PRN PO DECREASED GLUCOSE; Start 11/13/16 at 17: 00 Dextrose (D50w Syringe) 25 ml Q15M PRN IV DECREASED GLUCOSE; Start 11/13/16 at 17:00 Dextrose (D50w Syringe) 50 ml Q15M PRN IV DECREASED GLUCOSE; Start 11/13/16 at 17:00 Glucagon (Glucagen) 1 mg Q15M PRN IM DECREASED GLUCOSE; Start 11/13/16 at 17:00 Glucose (Glutose) 15 gm Q15M PRN BUCCAL DECREASED GLUCOSE; Start 11/13/16 at 17 :00 Losartan Potassium (Cozaar) 50 mg DAILY PO Last administered on 11/19/16 08:58 ; Admin Dose 50 MG; Start 11/14/16 at 09:00 Docusate Sodium (Colace) 100 mg BID PO Last administered on 11/19/16 08:57; Admin Dose 100 MG; Start 11/13/16 at 21:00 Acetaminophen/ Hydrocodone Bitart ([place] (10/325)) 1 tab Q4H PRN PO PAIN Last administered on 11/16/16 08:23; Admin Dose 1 TAB; Start 11/13/16 at 17:00 Clonidine (Catapres) 0.1 mg Q6H PRN PO sbp>160; Start 11/13/16 at 17:00 Atorvastatin Calcium (Lipitor) 20 mg DAILY PO Last administered on 11/19/16 08: 57; Admin Dose 20 MG; Start 11/14/16 at 09:00 Diagnostic Test (Pha) (Accu-Chek) 1 ea 02 XX Last administered on 11/16/16 02: 37; Admin Dose 1 EA; Start 11/14/16 at 02:00 Bisacodyl (Dulcolax) 5 mg BID PRN PO CONSTIPATION Last administered on 21:22; Admin Dose 5 MG; Start 11/13/16 at 17:00 Acetaminophen (Tylenol Tab) 650 mg Q4H PRN PO PAIN AND OR ELEVATED TEMP Last administered on 11/17/16 20:25; Admin Dose 650 MG; Start 11/13/16 at 17:30 Bisacodyl (Dulcolax Supp) 10 mg DAILY PRN [place] CONSTIPATION; Start 11/13/16 at 17 :30 Lactulose (Enulose) 20 gm DAILY PRN PO CONSTIPATION Last administered on 21:37; Admin Dose 20 GM; Start 11/13/16 at 17:30 Gabapentin (Neurontin) 300 mg TID PO Last administered on 11/19/16 21:32; Admin Dose 300 MG; Start 11/15/16 at 13:00 Methylprednisolone Sodium Succinate (Solu-Medrol) 20 mg DAILY IV Last administered on 11/19/16 08:06; Admin Dose 20 MG; Start 11/16/16 at 09:00 Assessment/Plan Additional Assessment/Plan rehab- Cervical SS with myelopathy-s.p decomp/fusion Continue rehab program. Doing very well Pain- continue current medication HTN-stable DM2 CTS hyperlipidemia FRANCE GAO MD November 20, 2016 09:29
[2016-11-20] MEDS: DOCUSATE SODIUM 100 MG CAP PO SCH ×2 (10:11→20:25)
[2016-11-20] MEDS: PIOGLITAZONE 30 MG TAB PO SCH (10:11)
[2016-11-20] MEDS: metFORMIN 500 MG TAB PO SCH ×2 (10:13→18:01)
[2016-11-20] MEDS: SERTRALINE 100 MG TAB PO SCH (10:13)
[2016-11-20] MEDS: LOSARTAN 50 MG TAB PO SCH (10:13)
[2016-11-20] MEDS: ATORVASTATIN 20 MG TAB PO SCH (10:13)
[2016-11-20] MEDS: GABAPENTIN 300 MG CAP PO SCH ×3 (10:13→20:25)
[2016-11-20] MEDS: METHYLPREDNISOLONE 40 MG INJ IV SCH (10:14)
[2016-11-20] MEDS: LACTULOSE 30ML CUP PO PRN (16:27)
--- NOTE | 2016-11-20 17:12 | PN ---
Date/Time of Note Date/Time of Note DATE: 11/20/16 TIME: 17:10 Assessment/Plan VTE Prophylaxis VTE Prophylaxis Intervention: other Lines/Catheters IV [facility] Type (from [facility]): Saline Lock Urinary Cath still in place: No Assessment/Plan Assessment/Plan 1. Cervical 5 to cervical 6 severe spondylosis with the cervical myelopathy and cord compression, status post cervical 5 to cervical 6 partial vertebrectomy with diskectomy and interbody fusion anterior plating. - Taper steroids. - Continue physical therapy. 2. Hypertension. Continue Cozaar. 3. Dyslipidemia. Continue statin. 4. Diabetes. Continue Actos and NovoLog per sliding scale. 5. Depression and possible memory impairment. Continue Zoloft. Further recommendations based on clinical course. Plan of care discussed with Dr. Koo. Subjective 24 Hr Interval Summary Free Text/Dictation alert, awake, feels better, ambulates well with, tolerates PT. FAMILY AT BED SIDE. -all qs answered. dw staff Constitutional: improved Eyes: no complaints ENT: no complaints Respiratory: no complaints, shortness of breath Cardiovascular: no complaints Gastrointestinal: no complaints Genitourinary: no complaints Musculoskeletal: no complaints Skin: no complaints Neurologic: no complaints Endocrine: no complaints Psychological: no complaints Immunologic: no complaints Exam/Review of Systems Vital Signs Vitals Vital Signs Date Time Temp Pulse Resp B/P Pulse Ox O2 Delivery O2 Flow Rate FiO2 11/20/16 07:40 98.0 81 20 148/91 94 Intake and Output 11/19/16 11/19/16 11/20/16 15:00 23:00 07:00 Intake Total 1240 ml 620 ml 300 ml Output Total 600 ml Balance 1240 ml 620 ml -300 ml Exam Constitutional: alert, oriented, well developed Psych: nl mood/affect Eyes: EOMI, PERRL, nl sclera ENMT: nl external ears & nose Neck: non-tender Respiratory: clear to auscultation Cardiovascular: nl pulses Gastrointestinal: non-tender, soft Musculoskeletal: nl extremities to inspection Extremities: normal pulses Neurological: nl mental status, nl speech, other (neck collar noted- intact) Skin: other Lymph: nontender Results Results 24 hrs Laboratory Tests Test 11/19/16 21:38 11/20/16 08:12 11/20/16 12:38 Bedside Glucose 145 101 105 Medications Medications Current Medications Ropinirole HCl (Requip) 0.25 mg HS PO Last administered on 11/19/16 21:33; Admin Dose 0.25 MG; Start 11/13/16 at 21:00 Sertraline HCl (Zoloft) 100 mg DAILY PO Last administered on 11/20/16 10:13; Admin Dose 100 MG; Start 11/14/16 at 09:00 Polyethylene Glycol (Miralax) 8.5 gm DAILY PRN PO CONSTIPATION; Start 11/13/16 at 16:30 Zolpidem Tartrate (Ambien) 5 mg HS PRN PO INSOMNIA Last administered on 21:42; Admin Dose 5 MG; Start 11/13/16 at 16:30 Ondansetron HCl (Zofran Inj) 4 mg Q6H PRN IV NAUSEA AND/OR VOMITING; Start at 16:30 Pantoprazole (Protonix Tab) 40 mg BID@06,18 PO Last administered on 11/20/16 06 :23; Admin Dose 40 MG; Start 11/13/16 at 18:00 Morphine Sulfate (morphine) 1 mg Q4H PRN IV severe pain; Start 11/13/16 at 17: 00 Pioglitazone HCl (Actos) 15 mg DAILY PO Last administered on 11/20/16 10:11; Admin Dose 15 MG; Start 11/14/16 at 09:00 Memantine (Namenda) 5 mg HS PO Last administered on 11/19/16 21:32; Admin Dose 5 MG; Start 11/13/16 at 21:00 Miscellaneous Information 1 ea NOTE XX ; Start 11/13/16 at 17:00 Glucose (Glutose) 15 gm Q15M PRN PO DECREASED GLUCOSE; Start 11/13/16 at 17:00 Glucose (Glutose) 22.5 gm Q15M PRN PO DECREASED GLUCOSE; Start 11/13/16 at 17: 00 Dextrose (D50w Syringe) 25 ml Q15M PRN IV DECREASED GLUCOSE; Start 11/13/16 at 17:00 Dextrose (D50w Syringe) 50 ml Q15M PRN IV DECREASED GLUCOSE; Start 11/13/16 at 17:00 Glucagon (Glucagen) 1 mg Q15M PRN IM DECREASED GLUCOSE; Start 11/13/16 at 17:00 Glucose (Glutose) 15 gm Q15M PRN BUCCAL DECREASED GLUCOSE; Start 11/13/16 at 17 :00 Losartan Potassium (Cozaar) 50 mg DAILY PO Last administered on 11/20/16 10:13 ; Admin Dose 50 MG; Start 11/14/16 at 09:00 Docusate Sodium (Colace) 100 mg BID PO Last administered on 11/20/16 10:11; Admin Dose 100 MG; Start 11/13/16 at 21:00 Acetaminophen/ Hydrocodone Bitart ([place] (10/325)) 1 tab Q4H PRN PO PAIN Last administered on 11/16/16 08:23; Admin Dose 1 TAB; Start 11/13/16 at 17:00 Clonidine (Catapres) 0.1 mg Q6H PRN PO sbp>160; Start 11/13/16 at 17:00 Atorvastatin Calcium (Lipitor) 20 mg DAILY PO Last administered on 11/20/16 10: 13; Admin Dose 20 MG; Start 11/14/16 at 09:00 Diagnostic Test (Pha) (Accu-Chek) 1 ea 02 XX Last administered on 11/16/16 02: 37; Admin Dose 1 EA; Start 11/14/16 at 02:00 Bisacodyl (Dulcolax) 5 mg BID PRN PO CONSTIPATION Last administered on 21:22; Admin Dose 5 MG; Start 11/13/16 at 17:00 Acetaminophen (Tylenol Tab) 650 mg Q4H PRN PO PAIN AND OR ELEVATED TEMP Last administered on 11/17/16 20:25; Admin Dose 650 MG; Start 11/13/16 at 17:30 Bisacodyl (Dulcolax Supp) [address] CONSTIPATION; Start 11/13/16 at 17 :30 Lactulose (Enulose) 20 gm DAILY PRN PO CONSTIPATION Last administered on 16:27; Admin Dose 20 GM; Start 11/13/16 at 17:30 Gabapentin (Neurontin) 300 mg TID PO Last administered on 11/20/16 13:09; Admin Dose 300 MG; Start 11/15/16 at 13:00 Methylprednisolone Sodium Succinate (Solu-Medrol) 20 mg DAILY IV Last administered on 11/20/16 10:14; Admin Dose 20 MG; Start 11/16/16 at 09:00 NESTOR BARKSDALE November 20, 2016 17:12
[2016-11-20 19:33] VITALS: BP 142/74; RESP 18
[2016-11-20] MEDS: MEMANTINE 5 MG TAB PO SCH (20:25)
[2016-11-20] MEDS: ROPINIROLE 0.25 MG TAB PO SCH (20:25)
[2016-11-20] MEDS: ZOLPIDEM 5 MG TAB PO PRN (22:43)
[2016-11-21] MEDS: ACCUCHECK AT 2AM (Patients on SS coverage) XX SCH (02:00)
[2016-11-21] MEDS: Insulin NOVOLOG SS MILD Algorithm (SS with meals and bedtime) SC SCH ×4 (07:05→21:00)
[2016-11-21] MEDS: PANTOPRAZOLE (EC) 40 MG TAB PO SCH ×2 (07:15→17:49)
[2016-11-21] MEDS: HYDROCHLOROTHIAZIDE 25 MG TAB PO SCH ×2 (07:16→17:50)
[2016-11-21 07:30] VITALS: BP 157/92; RESP 18
[2016-11-21] MEDS: metFORMIN 500 MG TAB PO SCH ×2 (08:55→17:49)
[2016-11-21] MEDS: PIOGLITAZONE 30 MG TAB PO SCH (08:55)
[2016-11-21] MEDS: LOSARTAN 50 MG TAB PO SCH (08:56)
[2016-11-21] MEDS: GABAPENTIN 300 MG CAP PO SCH ×3 (08:56→20:36)
[2016-11-21] MEDS: ATORVASTATIN 20 MG TAB PO SCH (08:56)
[2016-11-21] MEDS: DOCUSATE SODIUM 100 MG CAP PO SCH ×2 (08:56→20:36)
[2016-11-21] MEDS: SERTRALINE 100 MG TAB PO SCH (08:57)
[2016-11-21] MEDS: METHYLPREDNISOLONE 40 MG INJ IV SCH (08:57)
--- NOTE | 2016-11-21 15:47 | PN ---
Date/Time of Note Date/Time of Note DATE: 11/21/16 TIME: 15:44 Assessment/Plan VTE Prophylaxis VTE Prophylaxis Intervention: other Lines/Catheters IV [facility] Type (from [facility]): Saline Lock Urinary Cath still in place: No Assessment/Plan Assessment/Plan 1. Cervical 5 to cervical 6 severe spondylosis with the cervical myelopathy and cord compression, status post cervical 5 to cervical 6 partial vertebrectomy with diskectomy and interbody fusion anterior plating. - Taper steroids. - Continue physical therapy. 2. Hypertension. Continue Cozaar. 3. Dyslipidemia. Continue statin. 4. Diabetes. Continue Actos and NovoLog per sliding scale. 5. Depression and possible memory impairment. Continue Zoloft. Further recommendations based on clinical course. Anticipate discharge tomorrow . Plan of care discussed with Dr. Koo. Subjective 24 Hr Interval Summary Free Text/Dictation nad, feels better, anxious to go home, denies any complaints, dw staff- no new issues reported. Constitutional: improved Eyes: no complaints ENT: no complaints Respiratory: no complaints Cardiovascular: no complaints Gastrointestinal: no complaints Genitourinary: no complaints Musculoskeletal: no complaints Skin: no complaints Neurologic: no complaints Endocrine: no complaints Lymphatic: no complaints Psychological: no complaints Immunologic: no complaints Exam/Review of Systems Vital Signs Vitals Vital Signs Date Time Temp Pulse Resp B/P Pulse Ox O2 Delivery O2 Flow Rate FiO2 11/21/16 07:30 98.2 74 18 157/92 98 Intake and Output 11/20/16 11/20/16 11/21/16 15:00 23:00 07:00 Intake Total 1450 ml 320 ml Output Total 300 ml Balance 1450 ml 20 ml Exam Constitutional: alert, well developed Psych: nl mood/affect Eyes: EOMI, nl sclera ENMT: nl external ears & nose Neck: non-tender, other (neck collar noted, intact) Respiratory: clear to auscultation Cardiovascular: nl pulses Gastrointestinal: non-tender, soft Musculoskeletal: nl extremities to inspection Extremities: normal pulses Neurological: nl mental status, nl speech Skin: nl turgor Lymph: nontender Results Results 24 hrs Laboratory Tests Test 11/20/16 17:42 11/20/16 20:24 11/21/16 07:53 11/21/16 12:05 Bedside Glucose 187 89 90 104 Medications Medications Current Medications Ropinirole HCl (Requip) 0.25 mg HS PO Last administered on 11/20/16 20:25; Admin Dose 0.25 MG; Start 11/13/16 at 21:00 Sertraline HCl (Zoloft) 100 mg DAILY PO Last administered on 11/21/16 08:57; Admin Dose 100 MG; Start 11/14/16 at 09:00 Polyethylene Glycol (Miralax) 8.5 gm DAILY PRN PO CONSTIPATION; Start 11/13/16 at 16:30 Zolpidem Tartrate (Ambien) 5 mg HS PRN PO INSOMNIA Last administered on 22:43; Admin Dose 5 MG; Start 11/13/16 at 16:30 Ondansetron HCl (Zofran Inj) 4 mg Q6H PRN IV NAUSEA AND/OR VOMITING; Start at 16:30 Pantoprazole (Protonix Tab) 40 mg BID@06,18 PO Last administered on 11/21/16 07 :15; Admin Dose 40 MG; Start 11/13/16 at 18:00 Morphine Sulfate (morphine) 1 mg Q4H PRN IV severe pain; Start 11/13/16 at 17: 00 Pioglitazone HCl (Actos) 15 mg DAILY PO Last administered on 11/21/16 08:55; Admin Dose 15 MG; Start 11/14/16 at 09:00 Memantine (Namenda) 5 mg HS PO Last administered on 11/20/16 20:25; Admin Dose 5 MG; Start 11/13/16 at 21:00 Miscellaneous Information 1 ea NOTE XX ; Start 11/13/16 at 17:00 Glucose (Glutose) 15 gm Q15M PRN PO DECREASED GLUCOSE; Start 11/13/16 at 17:00 Glucose (Glutose) 22.5 gm Q15M PRN PO DECREASED GLUCOSE; Start 11/13/16 at 17: 00 Dextrose (D50w Syringe) 25 ml Q15M PRN IV DECREASED GLUCOSE; Start 11/13/16 at 17:00 Dextrose (D50w Syringe) 50 ml Q15M PRN IV DECREASED GLUCOSE; Start 11/13/16 at 17:00 Glucagon (Glucagen) 1 mg Q15M PRN IM DECREASED GLUCOSE; Start 11/13/16 at 17:00 Glucose (Glutose) 15 gm Q15M PRN BUCCAL DECREASED GLUCOSE; Start 11/13/16 at 17 :00 Losartan Potassium (Cozaar) 50 mg DAILY PO Last administered on 11/21/16 08:56 ; Admin Dose 50 MG; Start 11/14/16 at 09:00 Docusate Sodium (Colace) 100 mg BID PO Last administered on 11/21/16 08:56; Admin Dose 100 MG; Start 11/13/16 at 21:00 Acetaminophen/ Hydrocodone Bitart ([place] (10/325)) 1 tab Q4H PRN PO PAIN Last administered on 11/16/16 08:23; Admin Dose 1 TAB; Start 11/13/16 at 17:00 Clonidine (Catapres) 0.1 mg Q6H PRN PO sbp>160; Start 11/13/16 at 17:00 Atorvastatin Calcium (Lipitor) 20 mg DAILY PO Last administered on 11/21/16 08: 56; Admin Dose 20 MG; Start 11/14/16 at 09:00 Diagnostic Test (Pha) (Accu-Chek) 1 ea 02 XX Last administered on 11/16/16 02: 37; Admin Dose 1 EA; Start 11/14/16 at 02:00 Bisacodyl (Dulcolax) 5 mg BID PRN PO CONSTIPATION Last administered on 21:22; Admin Dose 5 MG; Start 11/13/16 at 17:00 Acetaminophen (Tylenol Tab) 650 mg Q4H PRN PO PAIN AND OR ELEVATED TEMP Last administered on 11/17/16 20:25; Admin Dose 650 MG; Start 11/13/16 at 17:30 Bisacodyl (Dulcolax Supp) 10 mg DAILY PRN [place] CONSTIPATION; Start 11/13/16 at 17 :30 Lactulose (Enulose) 20 gm DAILY PRN PO CONSTIPATION Last administered on 16:27; Admin Dose 20 GM; Start 11/13/16 at 17:30 Gabapentin (Neurontin) 300 mg TID PO Last administered on 11/21/16 13:38; Admin Dose 300 MG; Start 11/15/16 at 13:00 Methylprednisolone Sodium Succinate (Solu-Medrol) 20 mg DAILY IV Last administered on 11/21/16 08:57; Admin Dose 20 MG; Start 11/16/16 at 09:00 NESTOR BARKSDALE 7, 2017 15:47
[2016-11-21 17:48] VITALS: BP 115/76; PULSE 80; RESP 18
[2016-11-21 20:00] VITALS: BP 122/80; PULSE 89; RESP 18
[2016-11-21] MEDS: ROPINIROLE 0.25 MG TAB PO SCH (20:36)
[2016-11-21] MEDS: MEMANTINE 5 MG TAB PO SCH (20:36)
[2016-11-21] MEDS: ZOLPIDEM 5 MG TAB PO PRN (22:43)
[2016-11-22] MEDS: ACCUCHECK AT 2AM (Patients on SS coverage) XX SCH (02:00)
[2016-11-22] MEDS: PANTOPRAZOLE (EC) 40 MG TAB PO SCH (05:30)
[2016-11-22 05:33] VITALS: BP 117/77; PULSE 68; RESP 18
[2016-11-22] MEDS: HYDROCHLOROTHIAZIDE 25 MG TAB PO SCH (05:33)
[2016-11-22] MEDS: Insulin NOVOLOG SS MILD Algorithm (SS with meals and bedtime) SC SCH ×2 (07:05→11:30)
[2016-11-22 07:30] VITALS: BP 143/89; RESP 18
[2016-11-22] MEDS: metFORMIN 500 MG TAB PO SCH (07:35)
[2016-11-22] MEDS: HYDROCODONE/APAP (10/325) TAB PO PRN ×2 (08:30→14:14)
[2016-11-22] MEDS: ATORVASTATIN 20 MG TAB PO SCH (08:30)
[2016-11-22] MEDS: LOSARTAN 50 MG TAB PO SCH (08:30)
[2016-11-22] MEDS: GABAPENTIN 300 MG CAP PO SCH ×2 (08:30→13:00)
[2016-11-22] MEDS: DOCUSATE SODIUM 100 MG CAP PO SCH (08:30)
[2016-11-22] MEDS: SERTRALINE 100 MG TAB PO SCH (08:30)
[2016-11-22] MEDS: PIOGLITAZONE 30 MG TAB PO SCH (08:31)
[2016-11-22] MEDS: METHYLPREDNISOLONE 40 MG INJ IV SCH (09:00)
--- NOTE | 2016-11-22 17:41 | PN ---
Date/Time of Note Date/Time of Note DATE: 11/22/16 TIME: 17:40 Assessment/Plan VTE Prophylaxis VTE Prophylaxis Intervention: SCD's Lines/Catheters IV [facility] Urinary Cath still in place: No Assessment/Plan Chief Complaint/Hosp Course Assessment/Plan 1. Cervical 5 to cervical 6 severe spondylosis with the cervical myelopathy and cord compression, status post cervical 5 to cervical 6 partial vertebrectomy with diskectomy and interbody fusion anterior plating. Taper steroids. Continue physical therapy. 2. Hypertension. Continue Cozaar. 3. Dyslipidemia. Continue statin. 4. Diabetes. Continue Actos and NovoLog per sliding scale. 5. Depression and possible memory impairment. Continue Zoloft. d/c home planning Further recommendations based on clinical course. Plan of care discussed with Dr. Koo. Problems: Exam/Review of Systems Vital Signs Vitals Vital Signs Date Time Temp Pulse Resp B/P Pulse Ox O2 Delivery O2 Flow Rate FiO2 11/22/16 07:30 98.2 69 18 143/89 98 11/21/16 20:00 Room Air Intake and Output 11/21/16 11/21/16 11/22/16 15:00 23:00 07:00 Intake Total 840 ml 300 ml Balance 840 ml 300 ml Exam Constitutional: alert, oriented Psych: no complaints Head: atraumatic, normocephalic Eyes: nl conjunctiva ENMT: nl external ears & nose Neck: other (Status post cervical surgery, cervical collar on), supple Respiratory: clear to auscultation, normal air movement Cardiovascular: nl pulses, regular rate and rhythm Gastrointestinal: non-tender, soft Musculoskeletal: nl extremities to inspection, nl gait and stance Extremities: normal pulses Neurological: AQUATIC ECOLOGIST 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 Results Results 24 hrs Laboratory Tests Test 11/21/16 20:40 11/22/16 07:52 11/22/16 12:25 Bedside Glucose 108 86 132 Medications Medications Current Medications Ropinirole HCl (Requip) 0.25 mg HS PO Last administered on 11/21/16 20:36; Admin Dose 0.25 MG; Start 11/13/16 at 21:00 Sertraline HCl (Zoloft) 100 mg DAILY PO Last administered on 11/22/16 08:30; Admin Dose 100 MG; Start 11/14/16 at 09:00 Polyethylene Glycol (Miralax) 8.5 gm DAILY PRN PO CONSTIPATION; Start 11/13/16 at 16:30 Zolpidem Tartrate (Ambien) 5 mg HS PRN PO INSOMNIA Last administered on 22:43; Admin Dose 5 MG; Start 11/13/16 at 16:30 Ondansetron HCl (Zofran Inj) 4 mg Q6H PRN IV NAUSEA AND/OR VOMITING; Start at 16:30 Pantoprazole (Protonix Tab) 40 mg BID@06,18 PO Last administered on 11/22/16 05 :30; Admin Dose 40 MG; Start 11/13/16 at 18:00 Morphine Sulfate (morphine) 1 mg Q4H PRN IV severe pain; Start 11/13/16 at 17: 00 Pioglitazone HCl (Actos) 15 mg DAILY PO Last administered on 11/22/16 08:31; Admin Dose 15 MG; Start 11/14/16 at 09:00 Memantine (Namenda) 5 mg HS PO Last administered on 11/21/16 20:36; Admin Dose 5 MG; Start 11/13/16 at 21:00 Miscellaneous Information 1 ea NOTE XX ; Start 11/13/16 at 17:00 Glucose (Glutose) 15 gm Q15M PRN PO DECREASED GLUCOSE; Start 11/13/16 at 17:00 Glucose (Glutose) 22.5 gm Q15M PRN PO DECREASED GLUCOSE; Start 11/13/16 at 17: 00 Dextrose (D50w Syringe) 25 ml Q15M PRN IV DECREASED GLUCOSE; Start 11/13/16 at 17:00 Dextrose (D50w Syringe) 50 ml Q15M PRN IV DECREASED GLUCOSE; Start 11/13/16 at 17:00 Glucagon (Glucagen) 1 mg Q15M PRN IM DECREASED GLUCOSE; Start 11/13/16 at 17:00 Glucose (Glutose) 15 gm Q15M PRN BUCCAL DECREASED GLUCOSE; Start 11/13/16 at 17 :00 Losartan Potassium (Cozaar) 50 mg DAILY PO Last administered on 11/22/16 08:30 ; Admin Dose 50 MG; Start 11/14/16 at 09:00 Docusate Sodium (Colace) 100 mg BID PO Last administered on 11/22/16 08:30; Admin Dose 100 MG; Start 11/13/16 at 21:00 Acetaminophen/ Hydrocodone Bitart ([place] (10/325)) 1 tab Q4H PRN PO PAIN Last administered on 11/22/16 08:30; Admin Dose 1 TAB; Start 11/13/16 at 17:00 Clonidine (Catapres) 0.1 mg Q6H PRN PO sbp>160; Start 11/13/16 at 17:00 Atorvastatin Calcium (Lipitor) 20 mg DAILY PO Last administered on 11/22/16 08: 30; Admin Dose 20 MG; Start 11/14/16 at 09:00 Diagnostic Test (Pha) (Accu-Chek) 1 ea 02 XX Last administered on 11/16/16 02: 37; Admin Dose 1 EA; Start 11/14/16 at 02:00 Bisacodyl (Dulcolax) 5 mg BID PRN PO CONSTIPATION Last administered on 21:22; Admin Dose 5 MG; Start 11/13/16 at 17:00 Acetaminophen (Tylenol Tab) 650 mg Q4H PRN PO PAIN AND OR ELEVATED TEMP Last administered on 11/17/16 20:25; Admin Dose 650 MG; Start 11/13/16 at 17:30 Bisacodyl (Dulcolax Supp) 10 mg DAILY PRN LA CONSTIPATION; Start 11/13/16 at 17 :30 Lactulose (Enulose) 20 gm DAILY PRN PO CONSTIPATION Last administered on 16:27; Admin Dose 20 GM; Start 11/13/16 at 17:30 Gabapentin (Neurontin) 300 mg TID PO Last administered on 11/22/16 13:00; Admin Dose 300 MG; Start 11/15/16 at 13:00 Methylprednisolone Sodium Succinate (Solu-Medrol) 20 mg DAILY IV Last administered on 11/22/16 09:00; Admin Dose 20 MG; Start 11/16/16 at 09:00 ERI CHAIDEZ November 22, 2016 17:41
== END 2016-11-22 14:00 | disposition home health service (06) | DRG 552 ==
LOC: VRC 11-13 15:46
PROVIDERS: ADMIT Physical Medicine & Rehabilitation; ATTEND Internal Medicine
DX: M47.12 Other spondylosis with myelopathy, cervical region (principal); I10 Essential (primary) hypertension; Z74.09 Other reduced mobility; E11.9 Type 2 diabetes mellitus without complications; E78.5 Hyperlipidemia, unspecified; G89.18 Other acute postprocedural pain; F32.9 Major depressive disorder, single episode, unspecified; R41.3 Other amnesia
CPT/HCPCS: 74230; 80053; 81001; 81003; 82962; 85025; 87081; 87086; 92507; 92523; 92526; 92610; 92611; 97110; 97112; 97116; 97150; 97163; 97167; 97530; 97535; J1815; J2920